=== PATIENT | male | born 1965 | race Caucasian/White ===

== ENCOUNTER 2018-06-04 12:56 | Inpatient (IN) | payer OTHER, SELFPAY ==
[2018-06-04] VITALS (8 sets, daily range): BP systolic 125–145; BP diastolic 75–89; PULSE 76–84; RESP 16–20; TEMP 36.3–36.8; O2SAT 96–97; BMI 25.4; BMI 26.7
--- NOTE | 2018-06-04 13:08 | CT_ITS ---
STUDY: CTA CHEST REASON FOR EXAM: Male, 52 years old. Hemoptysis, cough RADIATION DOSAGE (If Supplied By Facility): CTDIvol = ( 15.98 ) mGy, DLP = ( 713.45 ) mGycm TECHNIQUE: The examination was performed with the intravenous administration of 100ML ml of Isovue 370 contrast material. Post-processing of the angiographic images was performed, with multiplanar reformation and 3D reconstruction. Individualized dose optimization techniques were used for this CT. COMPARISON: None. FINDINGS: Normal enhancement of the main pulmonary artery and right and left pulmonary arteries. There are filling defects of the bilateral peripheral pulmonary arteries. There is no demonstrated pulmonary embolism. Normal thoracic aorta and visualized great vessels. There is no demonstrated aortic dissection. Normal heart and pericardium. Normal mediastinum. Normal hilar regions. Normal visualized trachea and bronchi. The lungs are well expanded. Left lower lobe infiltrate. Mild left pleural effusion with basilar atelectasis. Normal chest wall structures. Normal osseous structures. Hypoattenuated peripheral 1 cm right hepatic nodule. CT/CTA Chest W/WO Contrast IMPRESSION: Bilateral pulmonary embolism. No arterial dissection. Left lower lobe infiltrate. Left pleural effusion with basilar atelectasis. Peripheral hypoattenuated hepatic nodule. N.B. : The above information has been verbally conveyed by Paxton Chris DO to Dr. Silverio Helton, Referring Physician, on 06/04/2018 14:56:21 (ET). Electronically Signed: Paxton Chris DO at 14:52 EDT Tel [phone], Service support , N.B. : The above information has been verbally conveyed by Paxton Chris DO to Dr. Silverio Helton, Referring Physician, on 06/04/2018 14:56:21 (ET).
--- NOTE | 2018-06-04 13:08 | EKG12_ITS ---
Test Reason : SOB Blood Pressure : / mmHG Vent. Rate : 085 BPM Atrial Rate : 085 BPM P-R Int : 148 ms QRS Dur : 112 ms QT Int : 374 ms P-R-T Axes : 041 032 042 degrees QTc Int : 445 ms Normal sinus rhythm Normal ECG Confirmed by HANK MATOS, LATANYA ([id number]), industrial editor ROSE VIEYRA ([id number]) on 06/09/2018 3:41:47 PM Referred By: YOLANDA Confirmed By:LATANYA MCKINNEY MD
[2018-06-04 13:37] LABS: Absolute Lymphocyte Count 1.61 X10^3/ul (0.83-4.51); Absolute Neutrophil Count 5.6 X10^3/uL (2.0-7.7); Basophil# 0.02 X10^3/uL; Basophil% 0.2 % (0-1); Eosinophil# 0.15 X10^3/uL; Eosinophils% 1.8 % (0-5); Hematocrit 41.3 % (40-54); Lymphocyte # 1.61 X10^3/ul (4.0); Lymphocyte % 19.1 % (19-41); Mean Corp Hgb Conc 33.9 g/gl (32-36); Mean Corpuscular Volume 91.4 fL (80-94); Mean Platelet Vol. 9.7 fl (6.2-12.0); Monocyte# 1.04 X10^3/uL; Monocyte% 12.3 % (0-10); Neutrophil % 66.4 % (47-70); Platelet Count 220 K/mm3 (150-450); RBC Distribution Width CV 12.1 % (11.6-14.6); RBC Distribution Width SD 40.4 fl (35.1-43.9); Red Blood Count 4.52 M/mm3 (4.6-6.2); White Blood Count 8.4 K/mm3 (4.4-11.0)
[2018-06-04 13:38] LABS: POSITIVE COUNT NO; POSITIVE DIFFERENTIAL NO; POSITIVE MORPHOLOGY NO
[2018-06-04 13:51] LABS: Anion Gap 8 (5-15); BUN 14 mg/dL (7-18); BUN/Creat Ratio 11.9 RATIO (10-20); Calcium,Total 8.5 mg/dL (8.5-10.1); Chloride 105 mmol/L (98-107); Creatinine, Serum 1.18 mg/dL (0.70-1.30); EST Glomerular Filtration Rate 69 mL/min (>60); Est Glom Filt Rate - Afr Amer 83 mL/min (>60); Estimated Creatinine Clearance 91.24 ml/min; Glucose 101 mg/dL (74-106); Sodium Level 140 mmol/L (136-145)
[2018-06-04] MEDS: Heparin Injection (Vial) 5,000 UNIT/ML VIAL 4000 UNIT IV (15:13)
--- NOTE | 2018-06-04 15:36 | ED.DCSUM_ITS ---
- ER Visit Summary Date of Service: 06/04/18 Chief Complaint: Chest pain and hemoptysis History of Present Illness: The patient is a 52 M presenting for evaluation secondary chest pain or hemoptysis. Patient states that over the course of the last 3-4 days he has been having left posterior chest discomfort is worse with breathing. He states that he went to a chiropractor did not seem to alleviate this. Patient reports that today he has started to have episodes of hemoptysis. This is causing him to feel somewhat short of breath. Patient denies any prior similar episodes in the past, does have a history of DVT 2 years ago that was provoked by surgery, and also has a recent history of traveling to and from [place] on an airplane. Review of systems otherwise negative. Physical Examination: Vital signs are within normal limits, patient is afebrile. General: Patient is well-nourished well-developed and in no acute distress. Head: Normocephalic, atraumatic Eyes: Pupils equal round and reactive bilaterally, extra occular motion intact bialterally ENT: Moist mucous membranes Neck: Supple, no lymphadenopathy, no JVD, no meningismus CVS: Heart regular rate and rhythm, no murmurs, rubs or gallops, radial pulses 2 + bilaterally Resp: Respirations nondistressed, lung sounds clear bilaterally Abdomen: Soft, nontender, nondistended, no palpable masses, normal bowel sounds Back: Nontender Extremities: Nontender, atraumatic, active full range of motion, no peripheral edema Skin: warm, no rashes, no petechia Neuro: Alert and oriented x 4, CN 2-12 intact, no lateralizing neurological defecits Psyc: Normal affect Test Results: EKG shows sinus rhythm of [address] segments normal T waves. CBC chemistry troponin unremarkable. CT angiogram of the chest shows bilateral PEs with infiltrate in the left lower lobe Emergency Department Course and Treatment: Patient presented secondary to chest pain and hemoptysis. He has every risk factor in the book for having a PE, so CT angiogram was performed and showed evidence of PE. Given the patient's hemoptysis I do believe that he requires observation while he started on anticoagulation as he does run the risk of having massive hemoptysis. He was started on a heparin bolus and drip and will be admitted to PCU. Disposition: Admission Impression: 1. Bilateral pulmonary emboli This note was generated with [employer] dictation software. It may contain incorrect words, spelling, and punctuation that were not noted in review of the chart prior to signing ED Disposition - Plan for ED Patient: Chief Complaint: Shortness of Breath Referrals: Nathan Cortes MD [Primary Care Provider] -
--- NOTE | 2018-06-04 15:51 | PCM.HP.STD ---
Problem List (1) Hemoptysis Status: Acute (2) Back pain Status: Acute Qualifiers: Back pain location: thoracic back pain Chronicity: acute Back pain laterality: left Qualified Code(s): M54.6 - Pain in thoracic spine History of Present Illness Date of Admission: 06/04/18 The patient is a 52 year old M with a significant history of a previous DVT in his left leg after meniscal surgery in the same leg; who presents to the ED because of hemoptysis this morning. Patient returned from [place] about 10 days ago and noted that 3 days prior to his admission he had excruciating pain at the left side of his chest. At about the same time he had diffused body pain and chills which has since disappeared. Also this morning patient noted excruciating pain on the left side of his back proximal to his scapula. His back pain is aggravated with taking a breath. Because of the symptoms above the patient proceeded to the ED where a CT scan showed a bilateral PE [] Past Medical History Allergies No Known Allergies Allergy (Verified 06/04/18 13:01) Home Medications: Ambulatory Orders Medication Instructions Recorded NK [NK] 06/04/18 Surgical History: - - Rotator cough repair; left meniscus removal. Smoking Status: Current some day smoker Tobacco Use: Cigars Alcohol: Occasional - *Family History Paternal History Items: Cancer - Prostate Sibling History Items: Cancer, Hypertension Review of Systems HEENT: Denies: Head Aches, Sinus Congestion, Sinus Drainage Gastrointestinal: Denies: Abdominal Pain, Nausea, Vomiting Genitourinary: Denies: Dysuria Musculoskeletal: Reports: - Skin: Denies: Rash, Wounds Neurological: Denies: Numbness, Tingling, Focal weakness Psychiatric: Denies: Anxiety, Depression, Homicidal Ideations, Suicidal Ideations Hematologic/ Lymphatic: Denies: Easy Bruising, Easy Bleeding VTE Information - Inpt Only VTE Present on Admission: Yes VTE Mechan Device Prophylaxis: None VTE Pharm Prophylaxis ordered?: No Reason prophylaxis not ordered:: Treatment Not Indicated - On treatment for PE Patient Problems: Active and Suspected Problems Hemoptysis (Acute) Back pain (Acute) Chest pain (Acute) - Physical Exam General: Alert HEENT: Atraumatic Oral: Moist Mucosa Neck: Supple, No JVD, Negative Carotid Bruits Lungs: Clear to auscultation, Normal air movement Cardiovascular: Regular rate, No murmurs Abdomen: Bowel Sounds Present, Soft, Non Tender Extremities: No edema, Capillary Refill Less than 3 Seconds Musculoskeletal: No Tenderness to Palpation of Joints or Extremities Psych/Mental Status: Normal Affect, Appropriate Vital Signs Temp Pulse Resp BP Pulse Ox 97.3 F L 78 20 H 125/85 H 97 06/04/18 12:58 06/04/18 15:00 06/04/18 15:00 06/04/18 15:00 06/04/18 15:00 Assessment/Plan All Active Problems Hemoptysis (Acute) Back pain (Acute) Chest pain (Acute) 1. Acute Bilateral PE His chest pain and back pain is likely due to the bilateral PE confirmed by radiography. The patient was started on heparin bolus and infusion protocol. Oral anticoagulation was not started because of hemoptysis which may be difficult to resolve with oral anticoagulation. He is hemodynamically stable and chest CT did not show any right ventricular strain. We will not do echocardiogram at this time. We will order bilateral Doppler to investigate whether he had DVT leading to his PE. Morphine and oxycodone as needed for pain. 2. Left lower infiltrates Likely sequela of PE. Incentive spirometer. 3. Left pleural effusion Likely sequela of PE will treat PE as above. 4.DVT prophylaxis Not a candidate since he is already being treated for PE. Code Visit Inpatient E&M: 86476 Subs Hosp L2
--- NOTE | 2018-06-04 16:18 | VDLE_ITS ---
Reason For Study: PE RIGHT LEFT GSV is normal. GSV is normal. CFV is compressible, spontaneous, phasic, CFV is compressible, spontaneous, phasic, competent and demonstrates normal competent, and demonstrates normal augmentation. augmentation. FV is compressible, spontaneous, phasic, FV is compressible, spontaneous, phasic, competent and demonstrates normal competent and demonstrates normal augmentation. augmentation. POP V is compressible, spontaneous, phasic, Acute deep vein thrombosis is noted in the competent and demonstrates normal left popliteal vein. augmentation. PTV is compressible. T/P Trunk is compressible. Acute deep vein thrombosis is noted in the PTV is compressible. left peroneal vein. RT PerV is compressible. Acute deep vein thrombosis noted in T/P Procedure trunk. Exam performed portable in patient room. A preliminary report was called and/or faxed to Pt nurse Sunita. Interpretation Summary Acute deep vein thrombosis is noted in the left popliteal vein. Acute deep vein thrombosis is noted in the left tibio-peroneal trunk. Acute deep vein thrombosis is noted in the left peroneal vein. The remainder of the left lower extremity deep venous system is patent and compressible. The left common femoral vein and femoral vein are competent. Deep veins of the right lower extremity are patent and compressible segmentally. There is no evidence of right lower extremity deep vein thrombosis. Valvular competence appears intact within the proximal deep venous system on the right . The greater saphenous veins appear bilaterally patent and compressible segmentally. Ordering Physician: Filiberto Bazan Referring Physician: Jam Cortes MD Performed By: Victorina Clark RVT
[2018-06-04 17:26] LABS: International Normalized Ratio 1.1; Prothrombin Time (Protime)PT. 14.6 SECONDS (11.7-14.9)
[2018-06-04 17:28] LABS: Partial Thromboplast Time 85.9 Seconds (24.1-36.2)
[2018-06-04] MEDS: oxyCODONE 5 MG Tablet PO ×2 (19:09→21:04)
[2018-06-04] MEDS: Morphine 2 MG/ML Syringe IV (20:29)
[2018-06-04] MEDS: Docusate Sodium 100 MG Capsule PO (21:04)
[2018-06-04] MEDS: Acetaminophen 500 MG Tablet 1000 MG PO (23:29)
[2018-06-04] MEDS: Zolpidem Tartrate 5 MG Tablet PO (23:30)
[2018-06-05] VITALS (12 sets, daily range): BP systolic 111–138; BP diastolic 77–82; PULSE 64–77; RESP 16–18; TEMP 36.4–36.7; O2SAT 93–100
[2018-06-05 00:52] LABS: Partial Thromboplast Time 48.2 Seconds (24.1-36.2)
[2018-06-05] MEDS: oxyCODONE 5 MG Tablet 10 MG PO ×2 (02:59→09:00)
[2018-06-05 07:57] LABS: Hematocrit 37.7 % (40-54); Hemoglobin 13.1 g/dl (13.0-16.5); Mean Corp Hgb Conc 34.7 g/gl (32-36); Mean Corpuscular Hgb 32.1 pg (27.0-32.0); Mean Corpuscular Volume 92.4 fL (80-94); Mean Platelet Vol. 9.9 fl (6.2-12.0); Platelet Count 231 K/mm3 (150-450); RBC Distribution Width CV 11.6 % (11.6-14.6); RBC Distribution Width SD 39.1 fl (35.1-43.9); Red Blood Count 4.08 M/mm3 (4.6-6.2); Scan Indicated on CBC? Y/N NO; White Blood Count 8.3 K/mm3 (4.4-11.0)
[2018-06-05 08:23] LABS: Anion Gap 8 (5-15); BUN 16 mg/dL (7-18); BUN/Creat Ratio 16.6 RATIO (10-20); Calcium,Total 8.6 mg/dL (8.5-10.1); Chloride 103 mmol/L (98-107); Creatinine, Serum 0.96 mg/dL (0.70-1.30); EST Glomerular Filtration Rate 86 mL/min (>60); Est Glom Filt Rate - Afr Amer 105 mL/min (>60); Estimated Creatinine Clearance 112.15 ml/min; Glucose 149 mg/dL (74-106); Potassium 4.6 mmol/L (3.5-5.1); Sodium Level 138 mmol/L (136-145)
[2018-06-05 08:29] LABS: Partial Thromboplast Time 44.5 Seconds (24.1-36.2)
[2018-06-05] MEDS: Acetaminophen 500 MG Tablet 1000 MG PO ×2 (09:01→18:04)
[2018-06-05] MEDS: Docusate Sodium 100 MG Capsule PO ×2 (09:01→22:02)
--- NOTE | 2018-06-05 09:53 | ECHOD_ITS ---
Version 2 Reason For Study: EMBOLI Procedure This was a 2D Doppler, Color Flow transthoracic echocardiogram. Exam performed portable in patient room. Left Ventricle Normal size and thickness. The estimated ejection fraction is 65-70 %. Stage 1 diastolic dysfunction. No regional wall motion abnormalities noted. Right Ventricle Normal RV size. Probable apical RV strain patter, possibly consistent acute pulmonary embolism. Atria The left atrium is mildly enlarged. Normal right atrium. Normal atrial septum. Bubble contrast study negative for right to left interatrial shunt. Mitral Valve The mitral valve is structurally normal. No prolapse or stenosis seen. Trivial mitral valve insufficiency. Tricuspid Valve Normal tricuspid valve. Trivial tricuspid valve insufficiency. Right ventricular systolic pressure estimated to be 31 mmHg. Aortic Valve Trisinus/trileaflet aortic valve. Normal aortic valve. Pulmonic Valve Normal pulmonic valve. Great Vessels Normal aortic root. Normal arch. Normal inferior vena cava. Inferior vena cava collapse with sniff. Pericardium/Pleural No pericardial effusion. Medication Used existing IV in left antecubital space. Performed a rapid injection of agitated mix of 9 cc saline and 1cc air to assess for atrial septal defect. MMode/2D Measurements & Calculations LVIDd: 4.9 cm IVSd: 0.97 cm Ao root diam: 3.4 cm LVIDs: 3.0 cm LVPWd: 0.95 cm LA dimension: 3.5 cm RVDd: 3.2 cm FS: 39.0 % LAV(MOD-bp): 73.1 ml LA A4 area: 22.3 cm2 RA A4 area: 16.6 cm2 LAV(MOD-bp) Indexed: 31.1 ml/m2 LAV(MOD-sp2): 74.9 ml LAV(MOD-sp4): 72.5 ml Doppler Measurements & Calculations MV E max wilber: 98.7 cm/sec Lat Peak E' Wilber: 12.5 cm/sec Med Peak E' Wilber: 12.0 cm/sec MV A max wilber: 82.4 cm/sec E/E' lat: 7.9 E/E' med: 8.2 MV E/A: 1.2 Ao V2 max: 176.1 cm/sec LV V1 max: 148.5 cm/sec PA V2 max: 138.7 cm/sec Ao max P.4 mmHg LV V1 max P.8 mmHg TR max wilber: 254.1 cm/sec TR max P.8 mmHg Interpretation Summary The estimated ejection fraction is 65-70 %. Probable apical RV strain patter, possibly consistent acute pulmonary embolism. The left atrium is mildly enlarged. Stage 1 diastolic dysfunction. Right ventricular systolic pressure estimated to be 31 mmHg. Bubble contrast study negative for right to left interatrial shunt. There is no comparison study available. Ordering Physician: Mary Ellen Sanz Referring Physician: Jam Cortes MD Performed By: Jordyn Oliveros RDCS, RVT
--- NOTE | 2018-06-05 10:08 | PCM.PN.HOSP ---
Patient Problems: Active and Suspected Problems Hemoptysis (Acute) Back pain (Acute) Chest pain (Acute) Subjective: Patient was seen and examined. Admitted yesterday with bilateral PE. Admits to having traveled in an airplane from [place]. History of DVT 4 years ago after a left meniscal tear repair. He was on Xarelto for a while. No history of malignancy. Complains of light headedness after using the bathroom. He felt like he was going to pass out. Denies any dizziness or palpitations or chest pain or leg swelling. Vitals are stable Vitals/I&O's: Vital Signs Temp Pulse Resp BP Pulse Ox 97.8 F 68 16 118/77 98 06/05/18 03:00 06/05/18 03:00 06/05/18 03:00 06/05/18 03:00 06/05/18 07:20 Oxygen Flow Rate (L/min) 2 Oxygen Delivery Method Room Air Weight: 102.3 kg Body Mass Index (BMI) 26.7 Intake and Output for Last 24 Hours 06/03/18 06/04/18 06/05/18 23:59 23:59 23:59 Intake Total 240 / 240 280 / 280 Output Total 150 / 150 Balance 240 / 240 130 / 130 General: Alert, Oriented x3, Cooperative, No apparent distress, - - appeared slightly flushed HEENT: Atraumatic, PERRLA, EOMI, Normocephalic Oral: Moist Mucosa Neck: Supple, No JVD, Negative Carotid Bruits Lungs: Clear to auscultation, Normal air movement Cardiovascular: Regular rate, Regular Rhythm, Normal S1, Normal S2, No murmurs Abdomen: Bowel Sounds Present, Soft, Non Tender, Non-Distended, No Hepato-splenomegaly Extremities: No edema Skin: No rashes, No breakdown Musculoskeletal: No Tenderness to Palpation of Joints or Extremities Lymphatic: No Cervical, Supraclavicular, or Inguinal Adenopathy Neurological: Cranial nerves II-XII grossly intact, Neuro grossly intact Psych/Mental Status: Normal Affect, Appropriate Laboratory Results 06/04/18 16:55: PT 14.6, INR 1.1, APTT 85.9 H 06/05/18 00:25: APTT 48.2 H 06/05/18 07:30: WBC 8.3, RBC 4.08 L, Hgb 13.1, Hct 37.7 L, MCV 92.4, MCH 32.1 H, MCHC 34.7, RDW 11.6, RDW Differential 39.1, Plt Count 231, MPV 9.9 06/05/18 07:30: Sodium 138, Potassium 4.6, Chloride 103, Carbon Dioxide 27.0, Anion Gap 8, BUN 16, Creatinine 0.96, Estim Creat Clear Calc 112.15, Est GFR (MDRD) Af Amer 105, Est GFR (MDRD) Non-Af 86, BUN/Creatinine Ratio 16.6, Glucose 149 H, Calcium 8.6 06/05/18 07:30: APTT 44.5 H Current Medications Acetaminophen (Tylenol) 1,000 mg PO Q8H PRN PRN PRN Reason: PAIN Last Admin: 06/05/18 09:01 Dose: 1,000 mg Docusate Sodium (Colace) 100 mg PO BID [facility] Last Admin: 06/05/18 09:01 Dose: 100 mg Ceftriaxone Sodium (Rocephin) 1 gm in 50 mls @ 100 mls/hr IV Q24 [facility] Azithromycin 500 mg/ Dextrose 255 mls @ 250 mls/hr IV Q24 [facility] Magnesium Hydroxide (Milk Of Magnesia) 30 ml PO DAILY PRN PRN Reason: Constipation Morphine Sulfate () 1 mg IV Q4H PRN PRN PRN Reason: Moderate Pain (pain scale 4-5) Ondansetron HCl (Zofran) 4 mg IV Q6H PRN PRN PRN Reason: NAUSEA Oxycodone HCl (Oxyir) 10 mg PO Q4H PRN PRN PRN Reason: SEVERE PAIN (6-10/10) Last Admin: 06/05/18 09:00 Dose: 5 mg [facility] Stop: 06/26/18 10:08 Sodium Chloride () 5 - 30 ml IV UD PRN PRN Reason: SALINE FLUSH Zolpidem Tartrate (Ambien (Generic)) 5 mg PO QHS PRN PRN PRN Reason: INSOMNIA Last Admin: 06/04/18 23:30 Dose: 5 mg Medical Necessity - Tobacco Use Smoking Status: Current some day smoker Tobacco Use: Cigars Assessment/Plan All Active Problems Hemoptysis (Acute) Back pain (Acute) Chest pain (Acute) 52-year-old male with no significant past medical history except for previous DVT in his left leg after meniscal surgery, was on Xarelto, not on now. Patient admits to having traveled by airplane to [place]. He returned 10 days ago. He comes in with left-sided chest pain, fever and chills. Nose with bilateral pulmonary embolism and left lower lobe infiltrate with pleural effusion and atelectasis 1. Acute bilateral PE, appears to be provoked, and recently on a long flight, although suspect that this is a second time is having a VTE in this may be unprovoked, on heparin drip, and had Xarelto before. Vitals appears stable, not on oxygen, will start on Xarelto, DC heparin drip, 2D echo in the light of patient's recent symptoms of lightheadedness. Encourage use of incentive spirometer. 2. Left lower lobe infiltrate with pleural effusion, confirmed with radiologist, present on admission, no fever, chills or leucocytosis seen, secondary to community acquired pneumonia, will start on ceftriaxone and azithromycin. 3. DVT PPx- on anticoagulation for PE 4. Disposition: Possible DC in 24-48hrs Code Visit Inpatient E&M: 96682 Subs Hosp L3
--- NOTE | 2018-06-05 10:21 | PN_ITS ---
Patient Problems: Active and Suspected Problems Hemoptysis (Acute) Back pain (Acute) Chest pain (Acute) Subjective: Patient was seen and examined. Admitted yesterday with bilateral PE. Admits to having traveled in an airplane from [place]. History of DVT 4 years ago after a left meniscal tear repair. He was on Xarelto for a while. No history of malignancy. Complains of light headedness after using the bathroom. He felt like he was going to pass out. Denies any dizziness or palpitations or chest pain or leg swelling. Vitals are stable Vitals/I&O's: Vital Signs Temp Pulse Resp BP Pulse Ox 97.8 F 68 16 118/77 98 06/05/18 03:00 06/05/18 03:00 06/05/18 03:00 06/05/18 03:00 06/05/18 07:20 Oxygen Flow Rate (L/min) 2 Oxygen Delivery Method Room Air Weight: 102.3 kg Body Mass Index (BMI) 26.7 Intake and Output for Last 24 Hours 06/03/18 06/04/18 06/05/18 23:59 23:59 23:59 Intake Total 240 / 240 280 / 280 Output Total 150 / 150 Balance 240 / 240 130 / 130 General: Alert, Oriented x3, Cooperative, No apparent distress, - - appeared slightly flushed HEENT: Atraumatic, PERRLA, EOMI, Normocephalic Oral: Moist Mucosa Neck: Supple, No JVD, Negative Carotid Bruits Lungs: Clear to auscultation, Normal air movement Cardiovascular: Regular rate, Regular Rhythm, Normal S1, Normal S2, No murmurs Abdomen: Bowel Sounds Present, Soft, Non Tender, Non-Distended, No Hepato- splenomegaly Extremities: No edema Skin: No rashes, No breakdown Musculoskeletal: No Tenderness to Palpation of Joints or Extremities Lymphatic: No Cervical, Supraclavicular, or Inguinal Adenopathy Neurological: Cranial nerves II-XII grossly intact, Neuro grossly intact Psych/Mental Status: Normal Affect, Appropriate Laboratory Results 06/04/18 16:55: PT 14.6, INR 1.1, APTT 85.9 H 06/05/18 00:25: APTT 48.2 H 06/05/18 07:30: WBC 8.3, RBC 4.08 L, Hgb 13.1, Hct 37.7 L, MCV 92.4, MCH 32.1 H , MCHC 34.7, RDW 11.6, RDW Differential 39.1, Plt Count 231, MPV 9.9 06/05/18 07:30: Sodium 138, Potassium 4.6, Chloride 103, Carbon Dioxide 27.0, Anion Gap 8, BUN 16, Creatinine 0.96, Estim Creat Clear Calc 112.15, Est GFR ( MDRD) Af Amer 105, Est GFR (MDRD) Non-Af 86, BUN/Creatinine Ratio 16.6, Glucose 149 H, Calcium 8.6 06/05/18 07:30: APTT 44.5 H Current Medications Acetaminophen (Tylenol) 1,000 mg PO Q8H PRN PRN PRN Reason: PAIN Last Admin: 06/05/18 09:01 Dose: 1,000 mg Docusate Sodium (Colace) 100 mg PO BID [facility] Last Admin: 06/05/18 09:01 Dose: 100 mg Ceftriaxone Sodium (Rocephin) 1 gm in 50 mls @ 100 mls/hr IV Q24 [facility] Azithromycin 500 mg/ Dextrose 255 mls @ 250 mls/hr IV Q24 [facility] Magnesium Hydroxide (Milk Of Magnesia) 30 ml PO DAILY PRN PRN Reason: Constipation Morphine Sulfate () 1 mg IV Q4H PRN PRN PRN Reason: Moderate Pain (pain scale 4-5) Ondansetron HCl (Zofran) 4 mg IV Q6H PRN PRN PRN Reason: NAUSEA Oxycodone HCl (Oxyir) 10 mg PO Q4H PRN PRN PRN Reason: SEVERE PAIN (6-10/10) Last Admin: 06/05/18 09:00 Dose: 5 mg [facility] Stop: 06/26/18 10:08 Sodium Chloride () 5 - 30 ml IV UD PRN PRN Reason: SALINE FLUSH Zolpidem Tartrate (Ambien (Generic)) 5 mg PO QHS PRN PRN PRN Reason: INSOMNIA Last Admin: 06/04/18 23:30 Dose: 5 mg Medical Necessity - Tobacco Use Smoking Status: Current some day smoker Tobacco Use: Cigars Assessment/Plan All Active Problems Hemoptysis (Acute) Back pain (Acute) Chest pain (Acute) 52-year-old male with no significant past medical history except for previous DVT in his left leg after meniscal surgery, was on Xarelto, not on now. Patient admits to having traveled by airplane to [place]. He returned 10 days ago. He comes in with left-sided chest pain, fever and chills. Nose with bilateral pulmonary embolism and left lower lobe infiltrate with pleural effusion and atelectasis 1. Acute bilateral PE, appears to be provoked, and recently on a long flight, although suspect that this is a second time is having a VTE in this may be unprovoked, on heparin drip, and had Xarelto before. Vitals appears stable, not on oxygen, will start on Xarelto, DC heparin drip, 2D echo in the light of patient's recent symptoms of lightheadedness. Encourage use of incentive spirometer. 2. Left lower lobe infiltrate with pleural effusion, confirmed with radiologist , present on admission, no fever, chills or leucocytosis seen, secondary to community acquired pneumonia, will start on ceftriaxone and azithromycin. 3. DVT PPx- on anticoagulation for PE 4. Disposition: Possible DC in 24-48hrs Code Visit Inpatient E&M: 49275 Subs Hosp L3
[2018-06-05] MEDS: 0.9% NaCl Peripheral Flush Adult/Peds IV ×3 (12:08→22:02)
[2018-06-05] MEDS: Ondansetron 4 MG/2 ML Vial IV (12:08)
[2018-06-05] MEDS: Rivaroxaban 15 MG Tablet PO ×2 (12:16→18:04)
--- NOTE | 2018-06-05 14:34 | CASEMGMT ---
Face to Face with patient for initial transition planning/care coordination assessment. BRE RICH introduced self and role at [facility], pt voices understanding and consents to assessment at this time. Pt is sitting up in bed in no distress at this time. Pt is A/O x4 at this time and answers all questions appropriately at this time. Care providers, pharmacy, and demographics verified. See attached link. Pt voices no further concerns/needs at this time. Advised pt to ask for CM if any further questions/concerns/needs arise, voices understanding. PLAN[place]
--- NOTE | 2018-06-05 14:38 | CASEMGMT ---
Per Dr. Sanz, pt to be sent home on Xarelto 15mg twice daily for 21 days and then 20mg daily from then on. Script was e-scribed to [facility] retail pharmacy and per Scott, it is a preferred med but the co-pay will be $118 for the initial script but they did already apply a 30 day free coupon. Pt updated on all at this time and voices understanding. Dara DÍAZ CM
[2018-06-05] MEDS: Ceftriaxone 1 GM/50 ML BAG IV (17:07)
[2018-06-06 02:00] VITALS: BP 141/74; PULSE 69; RESP 18; TEMP 36.6; O2SAT 98
[2018-06-06] MEDS: Acetaminophen 500 MG Tablet 1000 MG PO (02:20)
[2018-06-06 03:00] VITALS: PULSE 65
[2018-06-06] MEDS: Rivaroxaban 15 MG Tablet PO (06:45)
[2018-06-06 06:58] VITALS: PULSE 59
[2018-06-06 07:46] VITALS: O2SAT 97
[2018-06-06 08:21] VITALS: BP 120/82; PULSE 67; RESP 18; TEMP 36.7; O2SAT 98
--- NOTE | 2018-06-06 10:31 | DCINST_ITS ---
- Discharge Diagnoses Current Active Problems: Current Active and Chronic Problems Hemoptysis (Acute) Back pain (Acute) Chest pain (Acute) You will use the following diet at home:: Regular Discharge Activity: Return to Normal Activity Call your doctor if you observe: Fever of 101 or Higher, Shortness of breath, Chest pain, - - Coughing blood Allergies/Adverse Reactions: Allergies No Known Allergies Allergy (Verified 06/04/18 13:01) Medications to take at Discharge Rivaroxaban [Xarelto] 15 mg PO BIDCM 21 Days #42 tab 06/05/18 levoFLOXacin tablet [Levaquin tablet] 750 mg PO DAILY #4 tab 06/06/18 The following prescriptions were given: levoFLOXacin tablet [Levaquin tablet] 750 mg PO DAILY #4 tab Rivaroxaban [Xarelto] 15 mg PO BIDCM 21 Days #42 tab Primary Care Physician: Nathan Cortes MD [Primary Care Provider] - Please follow up with your Primary Care Physician in: 5-7 days Test Results: Test results from this visit will be discussed in further detail at your follow- up appointment, if applicable.
--- NOTE | 2018-06-06 10:32 | DS.PCM_ITS ---
Discharge Date and Diagnosis - Problem List Patient Problems: Active and Suspected Problems Hemoptysis (Acute) Back pain (Acute) Chest pain (Acute) Date of Admission: 06/04/18 Date of Discharge: 06/06/18 - Primary Discharge Diagnosis Active and Suspected Problems Hemoptysis (Acute) Back pain (Acute) Chest pain (Acute) Bilateral PE Committee acquired pneumonia with pleural effusion. Hospital Course and Treatment Imaging Results: Impressions Chest CTA 06/04/18 13:08 IMPRESSION: Bilateral pulmonary embolism. No arterial dissection. Left lower lobe infiltrate. Left pleural effusion with basilar atelectasis. Peripheral hypoattenuated hepatic nodule. N.B. : The above information has been verbally conveyed by Paxton Chris DO to Dr. Silverio Helton, Referring Physician, on 06/04/2018 14:56:21 (ET). Electronically Signed: Paxton Chris DO at 14:52 EDT Tel [phone], Service support , N.B. : The above information has been verbally conveyed by Paxton Chris DO to Dr. Silverio Helton, Referring Physician, on 06/04/2018 14:56:21 (ET). 06/05/18 14:50 Urine, Clean Catch Streptococcus pneumoniae Antigen (M - Final 06/05/18 14:50 Urine, Clean Catch Legionella Antigen - Final None Operations: None Procedures: None Summary of Care Provided: The patient is a 52 year old M with a significant history of previous provoked DVT of his left leg after meniscus surgery in the left leg who came to the emergency department because of hemoptysis after a return flight from [place] and was found to have acute bilateral PE with left lower lobe infiltrates and pleural effusion On CTPE. Echocardiogram was unremarkable. The patient was started on heparin infusion protocol at the ED which was initially continued inpatient. Patient was later switched to Xarelto. Patient was started on IV antibiotics for community-acquired pneumonia. While inpatient patient's did not have any more hemoptysis. Patient had a pain in his left scapula which was managed inpatient with p.o. narcotics. Patient noted a considerable improvement in his pain. With clinical improvement in his symptoms a shared decision was made to discharge patient home on Levaquin p.o. and Xarelto. His first pack of Xarelto will be delivered from our pharmacy before patient goes home. Likewise his Levaquin will be delivered to him before he goes home. Patient was instructed to return to the ED if he has uncontrolled pain, fever, chills or anything out of the ordinary. Patient was instructed to follow up with PCP. And to discuss with PCP about a possible follow-up with hematology since this is his second DVT. On the day of discharge a comprehensive physical examination was done. Heart sounds S1, S2 present with no murmur, gallop or rubs. His lungs were clear to auscultation. His belly was nontender and nondistended and bowel sounds were present. He had no edema or cyanosis in his extremity. And is his pulses were normal bilaterally. [] Discharge Activity: Return to Normal Activity Call your doctor if you observe: Fever of 101 or Higher, Shortness of breath, Chest pain, - - Coughing blood Home Medications: Medications to take at Discharge Rivaroxaban [Xarelto] 15 mg PO BIDCM 21 Days #42 tab 06/05/18 levoFLOXacin tablet [Levaquin tablet] 750 mg PO DAILY #4 tab 06/06/18 Following Prescrptions Were Given to Patient: levoFLOXacin tablet [Levaquin tablet] 750 mg PO DAILY #4 tab Rivaroxaban [Xarelto] 15 mg PO BIDCM 21 Days #42 tab Primary Care Physician: Nathan Cortes MD [Primary Care Provider] - Please follow up with your Primary Care Physician in: 5-7 days Additional Instructions: Take tylenol for pain Disposition: Home Minutes spent on discharge:: 25 Patient Condition:: Good Medical Necessity - Tobacco Use Smoking Status: Current some day smoker Tobacco Use: Cigars Meaningful Use Info Meaningful Use Diagnoses (Choose all that apply): VTE - VTE Anticoag overlap given w/in hospital stay or rx'd at dc?: Yes Pt receive overlap for 5 days?: No Reason overlap not ordered, prescribed, or given for 5 days: Treatment Not Indicated Code Visit Inpatient E&M: 54522 Disch Hosp
[2018-06-06 11:13] VITALS: PULSE 73
== END 2018-06-06 12:55 | disposition home or self-care (01) | DRG 175 ==
LOC: ED 13:41 → PCU 15:37
PROVIDERS: Admitting Provider Hospitalist; Emergency Provider Emergency Medicine; Family Provider Family Medicine; PCP Family Medicine; Visit Provider Hospitalist
DX: I26.99 Other pulmonary embolism without acute cor pulmonale (principal); J18.9 Pneumonia, unspecified organism; J91.8 Pleural effusion in other conditions classified elsewhere; R04.2 Hemoptysis; F17.290 Nicotine dependence, other tobacco product, uncomplicated; Z86.718 Personal history of other venous thrombosis and embolism
CPT/HCPCS: 36415; 71275; 80048; 84484; 85025; 85027; 85610; 85730; 87449; 93005; 93306; 93970; 99281; J7040; Q9967; A4216; J2405

== ENCOUNTER → 2018-06-17 10:53 | Outpatient (CLI) | payer OTHER, SELFPAY ==
[2018-06-17 11:49] LABS: Absolute Lymphocyte Count 2.14 X10^3/ul (0.83-4.51); Absolute Neutrophil Count 3.5 X10^3/uL (2.0-7.7); Basophil# 0.05 X10^3/uL; Basophil% 0.8 % (0-1); Eosinophil# 0.13 X10^3/uL; Eosinophils% 2.1 % (0-5); Hematocrit 40.6 % (40-54); Hemoglobin 13.6 g/dl (13.0-16.5); Lymphocyte # 2.14 X10^3/ul (4.0); Mean Corp Hgb Conc 33.5 g/gl (32-36); Mean Corpuscular Hgb 30.8 pg (27.0-32.0); Mean Corpuscular Volume 91.9 fL (80-94); Mean Platelet Vol. 9.6 fl (6.2-12.0); Monocyte# 0.47 X10^3/uL; Monocyte% 7.5 % (0-10); Neutrophil # 3.48 X10^3/uL (2.7-7.7); Neutrophil % 55.1 % (47-70); POSITIVE COUNT NO; POSITIVE DIFFERENTIAL NO; POSITIVE MORPHOLOGY NO; Platelet Count 293 K/mm3 (150-450); RBC Distribution Width CV 11.9 % (11.6-14.6); RBC Distribution Width SD 40.2 fl (35.1-43.9); Red Blood Count 4.42 M/mm3 (4.6-6.2); White Blood Count 6.3 K/mm3 (4.4-11.0)
[2018-06-17 11:54] LABS: International Normalized Ratio 1.4; Prothrombin Time (Protime)PT. 16.7 SECONDS (11.7-14.9)
[2018-06-21 20:05] LABS: Dilute Russell Viper Venom 124.6 sec (0.0-47.0); Dilute Russell Viper Venom Mix 69.2 sec (0.0-47.0); PTT-LA 47.1 sec (0.0-51.9); Thrombin Time 18.3 sec (0.0-23.0); dPT Confirm Ratio 1.19 Ratio (0.00-1.40)
[2018-06-23 11:07] LABS: Protein S, Free 138 % (57-157); Protein S, Funtional 162 % (63-140); Protein S, Total 82 % (60-150)
[2018-06-23 11:08] LABS: Antithrombin 3 Function 107 % (75-135); Interpretation Comment: (.)
== END ==
PROVIDERS: Family Provider Family Medicine; PCP Family Medicine; Visit Provider Nurse Practitioner Adult Health
DX: I26.99 Other pulmonary embolism without acute cor pulmonale (principal)
CPT/HCPCS: 36415; 81241; 85025; 85300; 85305; 85306; 85610

== ENCOUNTER 2018-06-23 10:48 | Emergency (ER) | payer OTHER, SELFPAY ==
[2018-06-23 10:49] VITALS: BP 152/79; PULSE 65; RESP 22; TEMP 36.2; O2SAT 100; BMI 26.6
[2018-06-23] MEDS: Diphth,Pertuss(Acell),Tet Vac 0.5 ML Vial IM (12:36)
--- NOTE | 2018-06-23 13:28 | ED.VISSUMM ---
- ER Visit Summary Date of Service: 06/23/18 Chief Complaint: Injury left index finger and right hand History of Present Illness: The patient is a 52 M who is right-hand dominant. Presents with injury to his left index finger and right hand. This occurred prior to arrival. He is on Xarelto for recently diagnosed pulmonary embolus. He denies any paresthesia, anesthesia buttocks. Immunization unknown. He has no other complaints. Physical Examination: There is a 1 cm laceration dorsal surface left index finger. The extensor in the side tendon is intact. There is no pain to palpation. The flexor digitorum superficialis and flexor digitorum profundus are intact. Sensations intact. Capillary refill is normal. There is no subungual hematoma noted. There is an irregularly-shaped flap laceration webspace between the right index finger and right long finger. The flexor digitorum superficialis and flexor digitorum profundus are intact. Sensations intact. Capillary refill is normal. Extensor commonest and extensor in the side tendon are intact. There is no subungual hematoma noted of any digits right hand. He has full active range of motion of all digits bilaterally. Test Results: None Emergency Department Course and Treatment: Update tetanus immunization. The laceration dorsal hand approximate well with no bleeding and some small based on prior studies suturing is not indicated. The laceration webspace between the right index and long finger was sutured. The wound was prepped draped sterile manner. The area was anesthetized 1% lidocaine. Wound was irrigated with 200 cc normal saline. Using 5-0 Ethilon simple interrupted sutures were placed. Treatment Plan: Appropriate wound care instructions and sutures out in 10 days Disposition: Discharge to home Impression: 1. 2.9 cm laceration right hand irregular and flap 2. Less than 1 cm laceration left index finger not sutured 3. High risk medication, Xarelto for recent diagnosed PE This note was generated with [employer] dictation software. It may contain incorrect words, spelling, and punctuation that were not noted in review of the chart prior to signing ED Disposition - Plan for ED Patient: Chief Complaint: Laceration Instructions: ED Laceration Hand, ED Laceration Small Superf No Sutr Referrals: Nathan Cortes MD [Primary Care Provider] - 10 Day for suture removal Additional Instructions: Clean laceration with peroxide and Q-tip 3 times a day then apply bacitracin ointment. Keep lacerations clean and dry for the next 48 hours.
[2018-06-23 13:46] VITALS: BP 118/69; PULSE 72; RESP 15; O2SAT 98
== END 2018-06-23 13:48 | disposition home or self-care (01) ==
PROVIDERS: Emergency Provider Emergency Medicine; Family Provider Family Medicine; PCP Family Medicine
DX: S61.412A Laceration without foreign body of left hand, initial encounter (principal); S61.211A Laceration without foreign body of left index finger without damage to nail, initial encounter; I26.99 Other pulmonary embolism without acute cor pulmonale; Z72.0 Tobacco use; Z23 Encounter for immunization; Z79.02 Long term (current) use of antithrombotics/antiplatelets; W26.9XXA Contact with unspecified sharp object(s), initial encounter; Y93.89 Activity, other specified; Y92.89 Other specified places as the place of occurrence of the external cause; Y99.8 Other external cause status
CPT/HCPCS: 12002; 90471; 90715; 99284; J7030

== ENCOUNTER 2018-08-24 14:40 | Emergency (ER) | payer OTHER, SELFPAY ==
[2018-08-24 14:40] VITALS: BP 157/91; PULSE 76; RESP 18; TEMP 37.2; O2SAT 98; BMI 26.6
--- NOTE | 2018-08-24 15:31 | RAD_ITS ---
STUDY: X-RAY CHEST REASON FOR EXAM: Male, 52 years old. Cough. TECHNIQUE: 2 views COMPARISON: Prior chest CT exam of June 04, 2018 FINDINGS: Minimal residual infiltrate of the left upper lobe compared to the prior chest CT exam of June 04, 2018 no additional new consolidation or focal atelectasis. The prior left pleural effusion has resolved. Normal size heart. Normal mediastinum and elba. Normal visualized pulmonary arteries. Normal visualized aortic arch and descending thoracic aorta. Normal visualized thoracic spine. Normal visualized ribs, clavicles, and shoulders. There is no demonstrated abnormality of the visualized soft tissue structures of the upper abdomen. RAD/Chest PA and Lateral IMPRESSION: Minimal residual infiltrate of the left upper lobe markedly improved from the large consolidation present on the prior exam. Left pleural effusion has resolved. Negative for new consolidation, focal atelectasis or a substantial pleural effusion. Electronically Signed: Keyana Singer MD at 15:52 EDT , Service support ,
[2018-08-24 15:47] LABS: International Normalized Ratio 1.1; Prothrombin Time (Protime)PT. 13.8 SECONDS (11.7-14.9)
[2018-08-24 15:50] LABS: Absolute Lymphocyte Count 0.98 X10^3/ul (0.83-4.51); Absolute Neutrophil Count 3.5 X10^3/uL (2.0-7.7); Basophil# 0.02 X10^3/uL; Basophil% 0.4 % (0-1); D-Dimer Quantitative (DVT/PE) < 0.27 FEU/ug/m (0.27-0.49); Eosinophil# 0.06 X10^3/uL; Eosinophils% 1.2 % (0-5); Hematocrit 40.4 % (40-54); Hemoglobin 13.9 g/dl (13.0-16.5); Lymphocyte # 0.98 X10^3/ul (4.0); Lymphocyte % 19.2 % (19-41); Mean Corp Hgb Conc 34.4 g/gl (32-36); Mean Corpuscular Hgb 31.2 pg (27.0-32.0); Mean Corpuscular Volume 90.6 fL (80-94); Mean Platelet Vol. 10.2 fl (6.2-12.0); Monocyte# 0.55 X10^3/uL; Monocyte% 10.8 % (0-10); Neutrophil # 3.47 X10^3/uL (2.7-7.7); Platelet Count 174 K/mm3 (150-450); RBC Distribution Width CV 12.6 % (11.6-14.6); RBC Distribution Width SD 41.5 fl (35.1-43.9); Red Blood Count 4.46 M/mm3 (4.6-6.2); White Blood Count 5.1 K/mm3 (4.4-11.0)
[2018-08-24 15:51] LABS: POSITIVE COUNT NO; POSITIVE DIFFERENTIAL NO; POSITIVE MORPHOLOGY NO
[2018-08-24 15:52] LABS: Anion Gap 7 (5-15); BUN 18 mg/dL (7-18); BUN/Creat Ratio 12.9 RATIO (10-20); Calcium,Total 8.6 mg/dL (8.5-10.1); Chloride 104 mmol/L (98-107); Creatinine, Serum 1.39 mg/dL (0.70-1.30); EST Glomerular Filtration Rate 57 mL/min (>60); Est Glom Filt Rate - Afr Amer 69 mL/min (>60); Estimated Creatinine Clearance 77.46 ml/min; Glucose 116 mg/dL (74-106); Potassium 3.7 mmol/L (3.5-5.1); Sodium Level 138 mmol/L (136-145)
--- NOTE | 2018-08-24 16:00 | ED.VISSUMM ---
- ER Visit Summary Date of Service: 08/24/18 Chief Complaint: Cough History of Present Illness: The patient is a 52 M who presents with cough. He has 1 day of chills and productive cough. He coughed up some mucus today which had some bright red blood in it. He states this was about the size of a nickel. He also has some muscle aches and joint aches. He is concerned because he was diagnosed with a DVT and pulmonary embolism on June 04 and had some similar symptoms. He denies any chest pain or shortness of breath. No nausea vomiting or diarrhea. Physical Examination: Afebrile vitals are unremarkable Moist mucous membranes Oropharynx clear Normal nasal inspection no epistaxis or dried blood Heart is regular rate and rhythm Lungs are clear without rales rhonchi or wheezing Abdomen soft Extremities nontender without edema Test Results: Labs notable for creatinine 1.39 otherwise normal. INR normal. D-dimer negative. Two-view chest x-ray shows minimal residual infiltrate in the left lung which is markedly improved from prior there is resolution of the effusion. There is no new consolidation. Emergency Department Course and Treatment: Patient presents with a single episode of hemoptysis. He also has symptoms suggestive of a viral syndrome. Hemoptysis can be seen with simple bronchitis. His d-dimer is negative. He has no evidence of new pulmonary embolism. He was advised to continue his current medications. The chest x-ray is markedly improved from prior there is still some minimal residual infiltrate but no new consolidation. I do not believe he has new pneumonia given lack of shortness of breath leukocytosis tachycardia. He was advised to follow-up with his primary care physician for reevaluation in a couple of days. He understands return for new or worsening symptoms and was instructed on specific signs and symptoms to monitor for. Treatment Plan: [] Disposition: Discharge Impression: Bronchitis This note was generated with [employer] dictation software. It may contain incorrect words, spelling, and punctuation that were not noted in review of the chart prior to signing ED Disposition - Plan for ED Patient: Chief Complaint: Cough Referrals: Nathan Cortes MD [Primary Care Provider] -
--- NOTE | 2018-08-24 16:03 | ED.DCSUM_ITS ---
- ER Visit Summary Date of Service: 08/24/18 Chief Complaint: Cough History of Present Illness: The patient is a 52 M who presents with cough. He has 1 day of chills and productive cough. He coughed up some mucus today which had some bright red blood in it. He states this was about the size of a nickel. He also has some muscle aches and joint aches. He is concerned because he was diagnosed with a DVT and pulmonary embolism on June 04 and had some similar symptoms. He denies any chest pain or shortness of breath. No nausea vomiting or diarrhea. Physical Examination: Afebrile vitals are unremarkable Moist mucous membranes Oropharynx clear Normal nasal inspection no epistaxis or dried blood Heart is regular rate and rhythm Lungs are clear without rales rhonchi or wheezing Abdomen soft Extremities nontender without edema Test Results: Labs notable for creatinine 1.39 otherwise normal. INR normal. D -dimer negative. Two-view chest x-ray shows minimal residual infiltrate in the left lung which is markedly improved from prior there is resolution of the effusion. There is no new consolidation. Emergency Department Course and Treatment: Patient presents with a single episode of hemoptysis. He also has symptoms suggestive of a viral syndrome. Hemoptysis can be seen with simple bronchitis. His d-dimer is negative. He has no evidence of new pulmonary embolism. He was advised to continue his current medications. The chest x-ray is markedly improved from prior there is still some minimal residual infiltrate but no new consolidation. I do not believe he has new pneumonia given lack of shortness of breath leukocytosis tachycardia. He was advised to follow-up with his primary care physician for reevaluation in a couple of days. He understands return for new or worsening symptoms and was instructed on specific signs and symptoms to monitor for. Treatment Plan: [] Disposition: Discharge Impression: Bronchitis This note was generated with [employer] dictation software. It may contain incorrect words, spelling, and punctuation that were not noted in review of the chart prior to signing ED Disposition - Plan for ED Patient: Chief Complaint: Cough Referrals: Nathan Cortes MD [Primary Care Provider] -
--- NOTE | 2018-08-24 16:03 | ED.DEP ---
ED Disposition - Plan for ED Patient: Chief Complaint: Cough Instructions: Acute Bronchitis, ED Hemoptysis Referrals: Nathan Cortes MD [Primary Care Provider] -
[2018-08-24 16:28] VITALS: BP 136/97; PULSE 74; RESP 16; O2SAT 97
--- NOTE | 2018-08-25 15:37 | CM.ED ---
ED CALLBACK: Follow-up call placed to patient. Patient states I'm feeling a lot better. He states that he doesn't plan to see Dr. Cortes if he continues to improve. I advised that he go ahead and make an appointment, just in case he is not feeling completely better. Patient states agreement with this plan. Patient denies further needs, questions or concerns at this time.
== END 2018-08-24 16:30 | disposition home or self-care (01) ==
LOC: ED 15:20
PROVIDERS: Emergency Provider Emergency Medicine; Family Provider Family Medicine; PCP Family Medicine
DX: J40 Bronchitis, not specified as acute or chronic (principal); Z86.718 Personal history of other venous thrombosis and embolism; Z86.711 Personal history of pulmonary embolism; Z72.0 Tobacco use; Z79.02 Long term (current) use of antithrombotics/antiplatelets
CPT/HCPCS: 71046; 80048; 85025; 85379; 85610; 99283; A4216

== ENCOUNTER → 2018-10-27 14:52 | Outpatient (CLI) | payer OTHER, SELFPAY ==
--- NOTE | 2018-10-27 14:56 | RAD_ITS ---
HISTORY: low back pain into left leg COMPARISON: None FINDINGS: XR Spine Lumbar 5 Views: Straightening of the lumbar spine. Lumbar vertebra are normal in height. No fracture or suspicious bony lesion. Disc space narrowing moderate to marked at the L5-S1 level and mild at the L4-5 level. L5-S1 mild facet joint arthritis. No spondylolisthesis. The SI joints appear preserved. RAD/L/S Spine Min 4 Views IMPRESSION: The principal finding is L5-S1 degenerative disc disease and facet joint arthritis. at 0432 Reported and signed by: Manan Butler MD Electronically Signed: Manan Butler, at 4:30 EST Tel , Service support ,
--- NOTE | 2018-10-27 14:56 | RAD_ITS ---
HISTORY: neck pain and left arm numbness COMPARISON: None FINDINGS: XR Spine Cervical 4 or 5 Views: Straightening of the cervical spine. Cervical vertebra are normal in height. No fracture. C5-6 and C6-7 disc space narrowing accompanied by endplate spurring. Uncovertebral spurring with foraminal narrowing of the same 2 levels on the left. The C1-C2 relationship appears normal. RAD/Cerv Spine 4 or 5 Views IMPRESSION: C5-6 and C6-7 degenerative disc disease and spondylosis with foraminal narrowing on the left at these 2 levels secondary to uncovertebral spurring at 0416 Reported and signed by: Manan Butler MD Electronically Signed: Manan Butler, at 4:14 EST Tel , Service support ,
[2018-10-27 17:41] LABS: Hematocrit 44.2 % (40-54); Mean Corp Hgb Conc 33.9 g/gl (32-36); Mean Corpuscular Hgb 30.6 pg (27.0-32.0); Mean Corpuscular Volume 90.2 fL (80-94); Platelet Count 212 K/mm3 (150-450); Prothrombin Time (Protime)PT. 12.7 SECONDS (11.7-14.9); RBC Distribution Width CV 12.5 % (11.6-14.6); RBC Distribution Width SD 40.5 fl (35.1-43.9); Scan Indicated on CBC? Y/N NO; White Blood Count 7.4 K/mm3 (4.4-11.0)
[2018-10-27 17:42] LABS: Partial Thromboplast Time 29.9 Seconds (24.1-36.2)
[2018-10-27 17:44] LABS: Homocysteine 12.2 umol/L (3.2-10.7)
[2018-10-27 17:47] LABS: Anion Gap 11 (5-15); BUN 23 mg/dL (7-18); BUN/Creat Ratio 13.9 RATIO (10-20); Calcium,Total 9.3 mg/dL (8.5-10.1); Chloride 103 mmol/L (98-107); Creatinine, Serum 1.66 mg/dL (0.70-1.30); EST Glomerular Filtration Rate 46 mL/min (>60); Est Glom Filt Rate - Afr Amer 56 mL/min (>60); Glucose 75 mg/dL (74-106); Potassium 3.7 mmol/L (3.5-5.1); Sodium Level 141 mmol/L (136-145)
[2018-11-05 20:09] LABS: Protein C Antigen 107 % (60-150); Protein C, Functional 131 % (73-180)
[2018-11-06 08:52] LABS: Anti-Cardiolipin Ab, IgA, Qn < 9 APL U/mL (0-11); Anti-Cardiolipin Ab, IgG, Qn < 9 GPL U/mL (0-14); Anti-Cardiolipin Ab, IgM, Qn 10 MPL U/mL (0-12); Protein S, Free 105 % (57-157); Protein S, Funtional 98 % (63-140); Protein S, Total 82 % (60-150)
--- OUTSIDE RECORDS SUMMARY | 2018-12-09 13:07 | XMS RPT_ITS ---
:1965 Author Organization OHIP Support Name Relationship Address Phone JALYN WILLOUGHBY Unavailable [address] + [place] [address] WILLOUGHBY, KENDRICK Unavailable [address] + [place] [address] [employer] Unavailable [address] + [place] [address] WILLOUGHBY, JALYN Unavailable [address] + [place] [address] WILLOUGHBY, KENDRICK Unavailable [address] + [place] [address] [employer] Unavailable [address] + [place] [address] WILLOUGHBY, JALYN Unavailable [address] + [place] [address] WILLOUGHBY, KENDRICK Unavailable [address] + [place] [address] [employer] Unavailable [address] + [place] [address] WILLOUGHBY, JALYN Unavailable [address] + [place] [address] WILLOUGHBY, KENDRICK Unavailable [address] + [place] [address] [employer] Unavailable [address] + [place] [address] WILLOUGHBY, JALYN Unavailable [address] + [place] [address] WILLOUGHBY, KENDRICK Unavailable [address] + [place] [address] [employer] Unavailable [address] + [place] [address] WILLOUGHBY, JALYN Unavailable [address] + [place] [address] WILLOUGHBY, KENDRICK Unavailable [address] + [place] [address] [employer] Unavailable [address] + [place] [address] WILLOUGHBY, JALYN Unavailable [address] + [place] [address] WILLOUGHBY, KENDRICK Unavailable [address] + [place] [address] [employer] Unavailable [address] + [place] [address] WILLOUGHBY, JALYN Unavailable [address] + [place] [address] WILLOUGHBY, KENDRICK Unavailable [address] + [place] [address] [employer] Unavailable [address] + [place] [address] WILLOUGHBY, JALYN Unavailable [address] + [place] [address] WILLOUGHBY, KENDRICK Unavailable [address] + [place] [address] [employer] Unavailable [address] + [place] [address] Care Team Providers Name Role Phone Jam Cortes Primary Care Unavailable Filiberto Bazan Admitting Unavailable Filiberto Bazan Attending Unavailable Filiberto Bazan Admitting Unavailable [place], [place] Attending Unavailable Jam Cortes Primary Care Unavailable [place], [place] Consulting Unavailable Michelle Aldrich Attending Unavailable Jam Cortes Primary Care Unavailable Filiberto Bazan Attending Unavailable Jam Cortes Primary Care Unavailable Topher Galicia Attending Unavailable Odilon Suh Attending Unavailable Jam Cortes Primary Care Unavailable Lucas Goodman Attending Unavailable Jam Cortes Attending Unavailable Joel Corteser Referring Unavailable [facility] Unavailable Sebastian, [facility], [place] Attending Unavailable Sebastian, [place] [facility]erring [facility], [place] Primary Care Unavailable PROBLEMS PROBLEMS DATE TYPE CONDITION / ATTENDING STATUS SOURCE CODE 11/11/2018 Unknown I26.99 - Other Sebastian, Active [place] [facility] without acute Repository cor pulmonale / I26.99(ICD-10) PROCEDURES PROCEDURES No Procedure Records FoundRESULTS RESULTS INITAL EVALUATION (1) Observed: 11/17/2018 Status: F Source: [facility] - PT 6:45 AM [facility] REPOSITORY [facility] [address] [place], [place] [address] Fax REHABILITATION SERVICES INITIAL EVALUATION MR#: [id number] Acct: [id number] Name: RUBÉN WILLOUGHBY Rep #: [id number] : 1965 53 From: Rubén Ng DPT, BATSHEVA, CSCS Referring Dr.: Jam Cortes MD Status: REG R Insurance: [facility] SELF PAY INSURANCE Patient's Visit Information RUBÉN WILLOUGHBY is a 53 year old M referred to Physical Therapy by Nathan Cortes MD with a diagnosis of lumbago with sciatica and cervical radiculopathy.. Date of Evaluation: 11/13/18 Physical Therapist: Rubén Ng DPT, BATSHEVA, CSCS - Visit Plan Frequency: 2x /Week Duration: 4-6 Weeks Plan: 2x/week for 3-6 weeks for: 1. cervical retraction ex and manual traction with L UT and SCM stretching. 2. LB flexion bias stretching and ROM and NS strength. body mechanics and posture. Progress all to HEP. May use ES and MH if needed for pain. - Subjective Findings: L neck pain for a long time...years. 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 In last two months has progressed tingling laterally from elbow to index finger L UE. Last two weeks tingling inermittently up to upper arm. Happens a couple times per day and lasts 5 minutes as he moves it out. Neck pain is central to L constant. Working at [employer] and is better on the go. Worse in morning and if sitting. Only gets 2-3 hours per night due to pain out of a normal 6/10. Basic ADLs are good . 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 LBP is sciatic and had it long time since August with sudden central LBP while cutting a few trees down. Chiropractor helped LBP go away sciatic in L buttocks got worse. Constant at 3/10. Worse in am and at night. Hard to bend in morning. No problems coughing or sneezing or urinating problems. No regualr back or neck ex. - Pain L neck Pain Intensity (Out of 10): 7 Pain Intensity Range: 2, 10 - Objective Walks and trasnfers I without difficulty. Forward head posture with flat lordosis in lumbar and cervical spine. C/S AROM is limited in retraction, ext is 45, SB is painful L B and rotation is 55 B no pain. reflexes UE 2/3 bi and tri. Sensation UE WNL to gross light touch. Strength UE 5/5. repeated cervical retraction in supine diminishes L scap pain. LB AROM ext mod limited. SB are WFL, flexion is stiff with L leg pain in HS and glut. reflexes 2/3 patella and achilles B. Sensation is at deficit L lateral lower leg. Strength is 5/5 except L DF 4+. - Goals Goal 1:: Abolish UE adn LE numb, tingly and pain 1/10 in LB and 2/10 in L neck at most adn 75% improved. Goal Time Frame: 4-6 Weeks Goal 2:: sleep without interruption form pain Goal Time Frame: 4-6 Weeks Goal 3:: I approp ex to minimize future problems Goal Time Frame: 4-6 Weeks Goal 4:: Get up in morning without back or neck pain. Goal Time Frame: 4-6 Weeks - Rehabilitation Potential Physical Therapy Diagnosis: lumbar stenosis and cervical radiculopathy. Rehabilitation Potential: Fair - Anticipated Interventions Patient/Client Instruction: Educate patient on: Condition, Plan of Care For the Purpose of:: To decrease pain, To increase tolerance to activity/condition/position Therapeutic Exercise to Include: Strength training, Flexibilty training, Passive ROM, Active ROM, Dynamic Lumbar Stabilization For the Purpose of:: To decrease pain, To increase ROM, To increase tolerance to activity/condition/position, To improve ability of physical actions for home/community/work/leisure Manual Therapy Techniques to Include: Mobilization For the Purpose of:: To increase ROM TENS: Yes Thermo therapy (hot pack): Yes For the Purpose of:: To decrease pain Thank you for the opportunity to evaluate your patient. For Medicare and Medicare HMO plans, please review the plan of care and approve it. It will need to be FAXED BACK to us at [phone] for Medicare purposes. For Medicare only, by signing this I certify the plan of care. Please let me know if there are questions or concerns regarding this plan of care. Physician Signature: Date: <Electronically signed by Rubén CHEEMAT, OCS, CSCS> 11/17/18 0645 CC: Jam Cortes MD EBG Signed HOMOCYSTEINE Collected: 10/27/2018 Status: F Source: [facility]A 3:10 PM [facility] REPOSITORY TYPE CODE TESTS RESULT OUT OF REFERENCE UNITS RANGE LAB L503.8001 3.2-10.7 umol/L HOMOCYSTEINE High 12.2 Performed By: #### L503.8001 #### [facility] [address] [place], [address] MISCELLANEOUS LAB Collected: 10/27/2018 Status: F Source: QING PROCEDURE 2 3:10 PM [facility] REPOSITORY Order Comment: List Test(s) Ordered by Physician: EMIGDIO#[id number] ANTITHROMBIN FROZEN PLASMA TYPE CODE TESTS RESULT OUT OF RANGE REFERENCE UNITS LAB L801.1543 Normal [facility] LAB TEST 2 Result Comment: TEST RESULT LIMITS Antithrombin Activity 109 % 75 - 135 Direct Xa inhibitor anticoagulants such as rivaroxaban, apixaban and edoxaban will lead to spuriously elevated antithrombin activity levels possibly masking a deficiency. TESTING PERFORMED AT [facility]. ORIGINAL REPORT ON FILE IN LAB CONTAINS ADDITIONAL TEST SITE INFORMATION. Performed By: #### L801.1543 #### [facility] [address] [place], [address] MISCELLANEOUS LAB Collected: 10/27/2018 Status: F Source: Q[place] PROCEDURE 3:10 PM [facility] REPOSITORY Order Comment: Test(s) Ordered: #[id number] ANTIPHOSPHLIPID FROZEN PL/SERUM TYPE CODE TESTS RESULT OUT OF RANGE REFERENCE UNITS LAB L801.1541 Normal [facility] LAB TEST Result Comment: TEST RESULT LIMITS Antiphospholipid Syndrome aPTT 30.3 High sec 22.9 - 30.2 PT 11.4 sec 9.6 - 11.5 INR 1.1 0.9 - 1.1 Reference interval is for non-anticoagulated patients. Suggested INR therapeutic range for Vitamin K antagonist therapy: Standard Dose (moderate intensity therapeutic range): 2.0 - 3.0 Higher intensity therapeutic range 2.5 - 3.5 Thrombin Time 20.6 sec 0.0 - 23.0 dRVVT 51.6 High sec 0.0 - 47.0 dRVVT Confirm 1.4 High ratio 0.8 - 1.2 Hexagonal Phase Phospholipid 9 sec 0 - 11 Anticardiolipin Ab,IgG,Qn <9 GPL U/mL 0 - 14 Negative: <15 Indeterminate: 15 - 20 Low-Med Positive: >20 - 80 High Positive: >80 Anticardiolipin Ab,IgM,Qn 10 MPL U/mL 0 - 12 Negative: <13 Indeterminate: 13 - 20 Low-Med Positive: >20 - 80 High Positive: >80 Anticardiolipin Ab,IgM,Qn 10 MPL U/mL 0 - 12 Negative: <13 Indeterminate: 13 - 20 Low-Med Positive: >20 - 80 High Positive: >80 Beta-2 Glycoprotein I Ab, IgG <9 GPI IgG units 0 - 20 Please Note: The reference interval reflects a 3SD or 99th percentile interval, which is thought to represent a potentially clinically significant result in accordance with the International Consensus Statement on the classification criteria for definitive antiphospholipid syndrome (APS). J Thromb Haem 2006;4:295-306. Beta-2 Glycoprotein I Ab, IgM <9 GPI IgM units 0 - 32 Please Note: The reference interval reflects a 3SD or 99th percentile interval, which is thought to represent a potentially clinically significant result in accordance with the International Consensus Statement on the classification criteria for definitive antiphospholipid syndrome (APS). J Thromb Haem 2006;4:295-306. APS Panel Interpretation Please refer to the Coag Studies Interp Report. Coag Studies Interp Report Interpretation Note COAGULATION: ANTIPHOSPHOLIPID SYNDROME ASSESSMENT ASSESSMENT Only one of two confirmatory lupus anticoagulant tests is abnormal. An isolated, weakly positive dRVVT is interpreted as indeterminate for the presence of a lupus anticoagulant. As the aPTT is only minimally elevated, normal plasma mixing studies cannot be accurately interpreted. Therefore, the normal plasma mixing study was not performed. aCL and B2GP1 antibodies are normal. ANTIPHOSPHOLIPID SYNDROME ASSESSMENT SUMMARY - Results are indeterminate for the presence of a lupus anticoagulant. As only persistent lupus anticoagulants or antiphospholipid antibodies are associated with an increased risk for thrombosis, repeat testing is recommended after 12 weeks. ANTIPHOSPHOLIPID SYNDROME ASSESSMENT DEFINITIONS - aCL- anticardiolipin (antibodies to cardiolipin); B2GP1- antibodies to Beta-2 Glycoprotein 1; LA- lupus anticoagulant (which is identified with the dRVVT and/or hexagonal phospholipid neutralization assays); aPL- antibodies to protein/phospholipid complexes such as LA, aCL, and B2GP1 antibodies; APS- antiphospholipid syndrome; DTI-direct thrombin inhibitors. - MORTGAGE LOAN CLOSER: For questions regarding panel interpretation, please contact Louie Blakely M.D. at [facility] at . DISCLAIMER These assessments and interpretations are provided as a convenience in support of the physician-patient relationship and are not intended to replace the physician's clinical judgment. They are derived from national guidelines in addition to other evidence and expert opinion. The clinician should consider this information within the context of clinical opinion and the individual patient. SEE GUIDANCE FOR ANTIPHOSPHOLIPID SYNDROME ASSESSMENT:(1) Dustin V et al. J Thromb Haemost. 2009; 7(10):1016-4579. (2) Talia S et al. J Thromb Haemost. 2006;4(2):295-306. (3) Vipin DA et al. Blood. 2007;110(9): 5856-2375. TESTING PERFORMED AT [facility]. ORIGINAL REPORT ON FILE IN LAB CONTAINS ADDITIONAL TEST SITE INFORMATION. Performed By: #### L801.1541 #### [facility] [address] [place], [address] PROTEIN S DEFIC. Collected: 10/27/2018 Status: F Source: [facility] PROFILE 3:10 PM [facility] REPOSITORY TYPE CODE TESTS RESULT OUT OF RANGE REFERENCE UNITS LAB L3100.7100 60-150 % Normal PROTEIN 82 S,TOTAL Result Comment: This test was developed and its performance characteristics determined by [employer]. It has not been cleared or approved by the Food and Drug Administration. LAB L3100.7200 57-157 % Normal PROTEIN S, FREE 105 Result Comment: This test was developed and its performance characteristics determined by [facility]. It has not been cleared or approved by the Food and Drug Administration. LAB L3100.7260 63-140 % Normal PROTEIN S, FUNC 98 Result Comment: Protein S activity may be falsely increased (masking an abnormal, low result) in patients receiving direct Xa inhibitor (e.g., rivaroxaban, apixaban, edoxaban) or a direct thrombin inhibitor (e.g., dabigatran) anticoagulant treatment due to assay interference by these drugs. Performed By: #### L3100.7075, L3100.7275, L3100.8408, L4500.5000, L4600.0155 #### [facility] (refer to report for specific site) refer to report for address and phone number PROTEIN C DEFIC. Collected: 10/27/2018 Status: F Source: QING PROFILE 3:10 PM [facility] REPOSITORY TYPE CODE TESTS RESULT OUT OF RANGE REFERENCE UNITS LAB L3100.7310 60-150 % Normal PROTEIN C 107 LAB L3100.7335 73-180 % Normal PROT C,FUNC 131 Performed By: #### L3100.7075, L3100.7275, L3100.8408, L4500.5000, L4600.0155 #### [facility] (refer to report for specific site) refer to report for address and phone number ANTICARDIOLIPIN IGA,G,M Collected: 10/27/2018 Status: F Source: QING 3:10 PM [facility] REPOSITORY TYPE CODE TESTS RESULT OUT OF RANGE REFERENCE UNITS LAB L3100.8420 0-14 GPL U/mL Normal ANTICARDIO IgG < 9 Result Comment: Negative: <15 Indeterminate: 15 - 20 Low-Med Positive: >20 - 80 High Positive: >80 LAB L3100.8425 0-12 MPL U/mL ANTICARDIO Normal IgM 10 Result Comment: Negative: <13 Indeterminate: 13 - 20 Low-Med Positive: >20 - 80 High Positive: >80 LAB L3100.8430 0-11 APL U/mL Normal ANTICARDIO IgA < 9 Result Comment: Negative: <12 Indeterminate: 12 - 20 Low-Med Positive: >20 - 80 High Positive: >80 Performed By: #### L3100.7075, L3100.7275, L3100.8408, L4500.5000, L4600.0155 #### [facility] (refer to report for specific site) refer to report for address and phone number FACT V LEIDEN Collected: 10/27/2018 Status: F Source: QING MUTATION 3:10 PM [facility] REPOSITORY TYPE CODE TESTS RESULT OUT OF RANGE REFERENCE UNITS LAB L4500.5100 . Normal FACTOR V Comment LEIDEN Result Comment: Result: Negative (no mutation found) Factor V Leiden is a specific mutation (R506Q) in the factor V gene that is associated with an increased risk of venous thrombosis. Factor V Leiden is more resistant to inactivation by activated protein C. As a result, factor V persists in the circulation leading to a mild hyper- coagulable state. The Leiden mutation accounts for 90% - 95% of APC resistance. Factor V Leiden has been reported in patients with deep vein thrombosis, pulmonary embolus, central retinal vein occlusion, cerebral sinus thrombosis and hepatic vein thrombosis. Other risk factors to be considered in the workup for venous thrombosis include the P32602B mutation in the factor II (prothrombin) gene, protein S and C deficiency, and antithrombin deficiencies. Anticardiolipin antibody and lupus anticoagulant analysis may be appropriate for certain patients, as well as homocysteine levels. Contact your local [facility] for information on how to order additional testing if desired. Genetic counselors are available for health care providers to discuss results at [phone] Methodology: DNA analysis of the Factor V gene was performed by allele- specific PCR. The diagnostic sensitivity and specificity is >99% for both. Molecular-based testing is highly accurate, but as in any laboratory test, diagnostic errors may occur. All test results must be combined with clinical information for the most accurate interpretation. This test was developed and its performance characteristics determined by [facility]. It has not been cleared or approved by the Food and Drug Administration. References: Milton Maier (1996). Clin Lab Med 16:169-186. Gene Danielle, PhD, [facility] Caroline Farah, PhD, [facility] Suresh RodasSJosselyn, PhD, FAC Concetta López, PhD, FAC Eve Lindsey, PhD, [facility] Filiberto Mccabe PhD, [facility] Performed By: #### L3100.7075, L3100.7275, L3100.8408, L4500.5000, L4600.0155 #### [facility] (refer to report for specific site) refer to report for address and phone number MTHFR DNA VARIANT Collected: 10/27/2018 Status: F Source: [facility] 3:10 PM [facility] REPOSITORY TYPE CODE TESTS RESULT OUT OF RANGE REFERENCE UNITS LAB L4600.0205 . Normal MTHFR DNA Comment Result Comment: Result: C677T/N0642B Two mutations (C677T and P1664D) identified Interpretation: This individual is heterzygous for both the MTHFR C677T and J1030J variants (one copy of each). Compound heterozygosity for the C677T and K3960J variants is unlikely to be of clinical significance, based on consensus of published reports. This combination of results, however, may be associated with increased risk for the development of hyperhomocysteinemia when the individual is deficient in folate, vitamin B6, or vitamin B12. A fasting homocysteine level should be measured. This genotype alone in the absence of hyperhomocysteinemia, does not increase risk of venous thrombosis, coronary artery disease or recurrent loss. However, hyperhomocysteinemia may also occur due to mutations in enzymes other than MTHFR that are involved in homocysteine metabolism, or arise due to acquired factors. In the evaluation of vascular and obstetric risk, consider measuring fasting homocysteine. Additional risk factors may be detected through systematic clinical laboratory analysis. Methylenetetrahydrofolate reductase (MTHFR) is a sterling enzyme in the folate pathway and is responsible for the metabolism of homocysteine. There are two common variants in the MTHFR gene, c.655c>T (p.Ldp787Dbjq), referred to as C677T, and c.1286A>C (p.Wzj377Voz), referred to as P7499G. Individuals homozygous for C677T (two copies of the variant), have decreased activity of the MTHFR enzyme and a predisposition to hyperhomocysteinemia, particularly when deficient in folate. Hyperhomocysteinemia is a risk factor for venous thrombosis and coronary artery disease and is associated with an increased risk of open neural tube defects. The C677T variant does not independently increase risk of these conditions in the absence of hyperhomocysteinemia. The B4309I variant is not associated with elevated homocysteine levels unless a C677T variant is also present; however, the clinical significance of heterozygosity for both C677T and V8088Z is controversial. Population data suggest that these two variants are not present on the same chromosome, but rare exceptions have been reported of triple variant MTHFR genotypes (ie. homozygous for one variant and heterozygous for the other). Homozygosity for C677T has an estimated frequency of 10% to 15% in Caucasians and 25% in Hispanics. Additional information: Dietary folic acid, B6 and B12 supplementation has been suggested to lower homocysteine levels in some people. Folic acid supplementation has been shown to reduce the occurrence of neural tube defects. Genetic counselors are available for health care providers to discuss results at [phone]. Methodology: DNA analysis of the MTHFR gene was performed by PCR amplification followed by restriction analysis. The diagnostic sensitivity is >99% for both. Molecular-based testing is highly accurate, but as in any laboratory test, rare diagnostic errors may occur. All test results must be combined with clinical information for the most accurate interpretation. This test was developed and its performance characteristics determined by [facility]. It has not been cleared or approved by the Food and Drug Administration. References: Eno LD, Canela Q. Am J Epidemiol 2000; 151(9):862-877. Clover MM, Berkley JA. Arch Pathol Lab Med 2007; 131(6):872-884. Frosst P et al. Amanda Lelo 1995; 10(1):111-113. Hickey SE et al. Lelo Med 2013; 15(2):153-156. Galina C et al. Obstet Gynecol 2011; 118(3):730-740. Tyson B et al. Eur J Epidemiol 2013; 28(8):621-647. Gene Danielle, PhD, [facility] Caroline Farah, PhD, [facility] Suresh RodasS., PhD, [facility] Concetta López, PhD, [facility] Eve Lindsey, PhD, FAC Filiberto Mccabe, PhD, FAC Performed at: - [address] [id number] [employer] [place] [employer]: Dayami Valerio MD, Phone: [phone] Performed at: [address] [id number] [employer] [place] [employer]: Lloyd Rodriguez PhD, Phone: [phone] Performed at: [facility] [address] [id number] [employer] [place] [employer]: Artem Vital MD, Phone: [phone] Performed By: #### L3100.7075, L3100.7275, L3100.8453, L4500.1497, L4600.0155 #### [facility] (refer to report for specific site) refer to report for address and phone number CBC-COMPLETE BLOOD CNT Collected: 10/27/2018 Status: F Source: Q[place] NO DIFF 2:58 PM [facility] REPOSITORY TYPE CODE TESTS RESULT OUT OF RANGE REFERENCE UNITS LAB L100.1000 4.4-11.0 K/mm3 Normal WBC 7.4 LAB L100.1200 4.6-6.2 M/mm3 Normal RBC 4.90 LAB L100.1300 13.0-16.5 g/dl Normal HGB 15.0 LAB L100.1400 40-54 % Normal HCT 44.2 LAB L100.1500 80-94 fL Normal MCV 90.2 LAB L100.1600 27.0-32.0 pg Normal MCH 30.6 LAB L100.1700 32-36 g/gl Normal MCHC 33.9 LAB L100.1810 11.6-14.6 % Normal RDW CV 12.5 LAB L100.1820 35.1-43.9 fl Normal RDW SD 40.5 LAB L100.1900 150-450 K/mm3 Normal PLT 212 LAB L100.2000 6.2-12.0 fl Normal MPV 10.0 Performed By: #### L100.0500, L300.3900, L300.4310, L500.2500 #### [facility] [address] [place], [address] PROTHROMBIN TIME W/INR Collected: 10/27/2018 Status: F Source: [place] 2:58 PM [facility] REPOSITORY TYPE CODE TESTS RESULT OUT OF RANGE REFERENCE UNITS LAB L300.4150 11.7-14.9 SECONDS Normal PROTIME 12.7 LAB L300.4200 Normal INR 1.0 Performed By: #### L100.0500, L300.3900, L300.4310, L500.2500 #### [facility] [address] [place], [place], [id number] PARTIAL THROMBOPLAST Collected: 10/27/2018 Status: F Source: [place] TIME 2:58 PM [facility] REPOSITORY TYPE CODE TESTS RESULT OUT OF RANGE REFERENCE UNITS LAB L300.4310 24.1-36.2 Seconds Normal PTT 29.9 Performed By: #### L100.0500, L300.3900, L300.4310, L500.2500 #### [facility] [address] [place], [address] BASIC METABOLIC Collected: 10/27/2018 Status: F Source: QING PROFILE (BMP) 2:58 PM [facility] REPOSITORY TYPE CODE TESTS RESULT OUT OF RANGE REFERENCE UNITS LAB L501.0100 74-106 mg/dL Normal GLU 75 Result Comment: Please note revised GLUCOSE reference range effective 2018. LAB L501.1000 7-18 mg/dL High BUN 23 LAB L501.1100 0.70-1.30 mg/dL High CREAT,SERUM 1.66 Result Comment: The validity of the calculated GFR AND GFRAA in patients over 70 years has not been determined. Clinical correlation is essential. LAB L501.1110 >60 mL/min Low EST GFR 46 Result Comment: Non- GFR Calc LAB L501.1115 >60 mL/min Low EST GFR - AA 56 Result Comment: GFR Calc LAB L501.1300 10-20 RATIO Normal BUN/CRE 13.9 LAB L501.2200 8.5-10.1 mg/dL CA Normal 9.3 LAB L501.5300 136-145 mmol/L NA Normal 141 LAB L501.5600 3.5-5.1 mmol/L K Normal 3.7 LAB L501.5900 98-107 mmol/L CL Normal 103 LAB L501.6100 21.0-32.0 mmol/L Normal CO2 27.0 LAB L501.6200 5-15 Normal GAP 11 Performed By: #### L100.0500, L300.3900, L300.4310, L500.2500 #### [facility] [address] [place], [address] CERV SPINE 4 OR 5 Observed: 10/27/2018 Status: F Source: QING VIEWS 2:56 PM [facility] REPOSITORY [facility] Imaging Services [address] [place] [address] Cerv Spine 4 or 5 Views MR#: [id number] Acct: [id number] Name: RUBÉN WILLOUGHBY Rep #: [id number] : 1965 M 53 From: Manan Butler MD PCP: Jam Cortes MD Status: REG CLI Study: Cerv Spine 4 or 5 Views Date of Exam: 10/27/18 Exam# [id number] Ordering Dr: Nathan Cortes MD HISTORY: neck pain and left arm numbness COMPARISON: None FINDINGS: XR Spine Cervical 4 or 5 Views: Straightening of the cervical spine. Cervical vertebra are normal in height. No fracture. C5-6 and C6-7 disc space narrowing accompanied by endplate spurring. Uncovertebral spurring with foraminal narrowing of the same 2 levels on the left. The C1-C2 relationship appears normal. RAD/Cerv Spine 4 or 5 Views IMPRESSION: C5-6 and C6-7 degenerative disc disease and spondylosis with foraminal narrowing on the left at these 2 levels secondary to uncovertebral spurring at 0416 Reported and signed by: Manan Butler MD Electronically Signed: Manan Butler, at 4:14 EST Tel , Service support , CC: Jam Cortes MD Construction Stonemason: Signed L/S SPINE MIN 4 Observed: 10/27/2018 Status: F Source: SPARTA VIEWS 2:56 PM [facility] REPOSITORY [facility] Imaging Services [address] [place] [address] L/S Spine Min 4 Views MR#: [id number] Acct: [id number] Name: RUBÉN WILLOUGHBY Rep #: [id number] : 1965 M 53 From: Manan Butler MD PCP: Jam Cortes MD Status: REG CLI Study: L/S Spine Min 4 Views Date of Exam: 10/27/18 Exam# [id number] Ordering Dr: Nathan Cortes MD HISTORY: low back pain into left leg COMPARISON: None FINDINGS: XR Spine Lumbar 5 Views: Straightening of the lumbar spine. Lumbar vertebra are normal in height. No fracture or suspicious bony lesion. Disc space narrowing moderate to marked at the L5-S1 level and mild at the L4-5 level. L5-S1 mild facet joint arthritis. No spondylolisthesis. The SI joints appear preserved. RAD/L/S Spine Min 4 Views IMPRESSION: The principal finding is L5-S1 degenerative disc disease and facet joint arthritis. at 0432 Reported and signed by: Manan Butler MD Electronically Signed: Manan Butler, at 4:30 EST Tel , Service support , CC: Jam Cortes MD Construction Stonemason: Signed DISCHARGE INSTRUCTION Observed: 08/24/2018 Status: F Source: QING 4:04 PM [facility] REPOSITORY [facility] Medical Records Department [address] [place] [address] Discharge Instruction 08/24/18 1603 MR#: [id number] Acct: [id number] Name: RUBÉN WILLOUGHBY Rep #: [id number] : 1965 52 From: Lucas Goodman MD PCP: Jam Cortes MD Status: REG ER ED Disposition - Plan for ED Patient: Chief Complaint: Cough Instructions: Acute Bronchitis, ED Hemoptysis Referrals: Nathan Cortes MD [Primary Care Provider] - What to do if you have Problems For any increased pain, shortness of breath, bleeding, nausea or vomiting, chest pain, or any unexpected problems, contact your Primary Care Provider. Call [facility] ([phone]) or report to the closest Emergency Room. Call 911 if necessary. 08/24/18 1604 <Electronically signed by Lucas Goodman MD> Date Lucas Goodman MD Cosigner Signature (If Indicated): Date CC: Jam Cortes MD EMERGENCY DEPARTMENT Observed: 08/24/2018 Status: F Source: QING SUMMARY 4:03 PM [facility] REPOSITORY [facility] Medical Records Department [address] [place] [address] Emergency Department Summary 08/24/18 1600 MR#: [id number] Acct: [id number] Name: RUBÉN WILLOUGHBY Rep #: [id number] : 1965 52 From: Lucas Goodman MD PCP: Jam Cortes MD Status: REG ER - ER Visit Summary Date of Service: 08/24/18 Chief Complaint: Cough History of Present Illness: The patient is a 52 M who presents with cough. He has 1 day of chills and productive cough. He coughed up some mucus today which had some bright red blood in it. He states this was about the size of a nickel. He also has some muscle aches and joint aches. He is concerned because he was diagnosed with a DVT and pulmonary embolism on June 04 and had some similar symptoms. He denies any chest pain or shortness of breath. No nausea vomiting or diarrhea. Physical Examination: Afebrile vitals are unremarkable Moist mucous membranes Oropharynx clear Normal nasal inspection no epistaxis or dried blood Heart is regular rate and rhythm Lungs are clear without rales rhonchi or wheezing Abdomen soft Extremities nontender without edema Test Results: Labs notable for creatinine 1.39 otherwise normal. INR normal. D-dimer negative. Two-view chest x-ray shows minimal residual infiltrate in the left lung which is markedly improved from prior there is resolution of the effusion. There is no new consolidation. Emergency Department Course and Treatment: Patient presents with a single episode of hemoptysis. He also has symptoms suggestive of a viral syndrome. Hemoptysis can be seen with simple bronchitis. His d-dimer is negative. He has no evidence of new pulmonary embolism. He was advised to continue his current medications. The chest x-ray is markedly improved from prior there is still some minimal residual infiltrate but no new consolidation. I do not believe he has new pneumonia given lack of shortness of breath leukocytosis tachycardia. He was advised to follow-up with his primary care physician for reevaluation in a couple of days. He understands return for new or worsening symptoms and was instructed on specific signs and symptoms to monitor for. Treatment Plan: [] Disposition: Discharge Impression: Bronchitis This note was generated with [employer] software. It may contain incorrect words, spelling, and punctuation that were not noted in review of the chart prior to signing ED Disposition - Plan for ED Patient: Chief Complaint: Cough Referrals: Nathan Cortes MD [Primary Care Provider] - What to do if you have Problems For any increased pain, shortness of breath, bleeding, nausea or vomiting, chest pain, or any unexpected problems, contact your Primary Care Provider. Call [facility] ([phone]) or report to the closest Emergency Room. Call 911 if necessary. 08/24/18 1603 <Electronically signed by Lucas Goodman MD> Date Lucas Goodman MD Cosigner Signature (If Indicated): Date CC: Jam Cortes MD PROTHROMBIN TIME W/INR Collected: 08/24/2018 Status: F Source: SPARTA 3:10 PM [facility] REPOSITORY TYPE CODE TESTS RESULT OUT OF RANGE REFERENCE UNITS LAB L300.4150 11.7-14.9 SECONDS Normal PROTIME 13.8 LAB L300.4200 Normal INR 1.1 Performed By: #### L300.3900, L300.8000 #### [facility] [address] [place], [place], [address] D-DIMER QUANTITATIVE Collected: 08/24/2018 Status: F Source: SPARTA (DVT/PE) 3:10 PM [facility] REPOSITORY TYPE CODE TESTS RESULT OUT OF RANGE REFERENCE UNITS LAB L300.8000 0.27-0.49 FEU/ug/m Low D-DIMER < 0.27 QUANT Result Comment: NORMAL D-Dimer level (<0.50) indicates no DVT or PE. NORMAL D-Dimer level (<0.50) indicates no DVT or PE. Performed By: #### L300.3900, L300.8000 #### [facility] [address] [place], [place], [address] CBC W/DIFF, AUTOMATED Collected: 08/24/2018 Status: F Source: QING 3:10 PM [facility] REPOSITORY TYPE CODE TESTS RESULT OUT OF RANGE REFERENCE UNITS LAB L100.1000 4.4-11.0 K/mm3 Normal WBC 5.1 LAB L100.1200 4.6-6.2 M/mm3 Low RBC 4.46 LAB L100.1300 13.0-16.5 g/dl Normal HGB 13.9 LAB L100.1400 40-54 % Normal HCT 40.4 LAB L100.1500 80-94 fL Normal MCV 90.6 LAB L100.1600 27.0-32.0 pg Normal MCH 31.2 LAB L100.1700 32-36 g/gl Normal MCHC 34.4 LAB L100.1810 11.6-14.6 % Normal RDW CV 12.6 LAB L100.1820 35.1-43.9 fl Normal RDW SD 41.5 LAB L100.1900 150-450 K/mm3 Normal PLT 174 LAB L100.2000 6.2-12.0 fl Normal MPV 10.2 LAB L100.2100 47-70 % Normal NEUT% 68.0 LAB L100.2200 19-41 % Normal LY% 19.2 LAB L100.2300 0-10 % High MONO% 10.8 LAB L100.2400 0-5 % Normal EO% 1.2 LAB L100.2500 0-1 % Normal BASO% 0.4 LAB L100.2550 0.0-0.9 % Normal IM GRAN % 0.400 Result Comment: IG% - Immature Granulocytes (promyelocytes, myelocytes and metamyelocytes) > 1% indicates that a LEFT SHIFT is Present. LAB L100.2620 2.0-7.7 X10 3/uL Normal Absolute Neut 3.5 LAB L100.2720 0.83-4.51 X10 3/ul Normal Absolute Lymph 0.98 Performed By: #### L100.0100 #### [facility] [address] [place], [place], [address] BASIC METABOLIC Collected: 08/24/2018 Status: F Source: QING PROFILE (BMP) 3:10 PM [facility] REPOSITORY TYPE CODE TESTS RESULT OUT OF RANGE REFERENCE UNITS LAB L501.0100 74-106 mg/dL High GLU 116 Result Comment: Fasting Glucose result from 100 to 125 mg/dL suggests IMPAIRED HOMEOSTASIS per A.D.A. criteria. Please note revised GLUCOSE reference range effective 2018. LAB L501.1000 7-18 mg/dL Normal BUN 18 LAB L501.1100 0.70-1.30 mg/dL High CREAT,SERUM 1.39 Result Comment: The validity of the calculated GFR AND GFRAA in patients over 70 years has not been determined. Clinical correlation is essential. LAB L501.1110 >60 mL/min Low EST GFR 57 Result Comment: Non- GFR Calc LAB L501.1115 >60 mL/min Normal EST GFR - AA 69 Result Comment: GFR Calc LAB L501.1255 ml/min Normal Estimated CRCL 77.46 LAB L501.1300 10-20 RATIO Normal BUN/CRE 12.9 LAB L501.2200 8.5-10 mg/dL Normal .1 CA 8.6 LAB L501.5300 136-14 mmol/L Normal 5 NA 138 LAB L501.5600 3.5-5. mmol/L Normal 1 K 3.7 LAB L501.5900 98-107 mmol/L Normal CL 104 LAB L501.6100 21.0-3 mmol/L Normal 2.0 CO2 27.0 LAB L501.6200 5-15 Normal GAP 7 Performed By: #### L500.2500 #### [facility] [address] [facility] [place], [address] CHEST PA AND LATERAL Observed: 08/24/2018 Status: F Source: SPARTA 3:01 PM [facility] REPOSITORY [facility] Imaging Services [address] [place] [address] Chest PA and Lateral MR#: [id number] Acct: [id number] Name: RUBÉN WILLOUGHBY Carol Ann Rep #: [id number] : 1965 M 52 From: Keyana Singer MD PCP: Jam Cortes MD Status: REG ER Study: Chest PA and Lateral Date of Exam: 08/24/18 Exam# [id number] Ordering Dr: Lucas Goodman MD STUDY: X-RAY CHEST REASON FOR EXAM: Male, 52 years old. Cough. TECHNIQUE: 2 views COMPARISON: Prior chest CT exam of June 04, 2018 FINDINGS: Minimal residual infiltrate of the left upper lobe compared to the prior chest CT exam of June 04, 2018 no additional new consolidation or focal atelectasis. The prior left pleural effusion has resolved. Normal size heart. Normal mediastinum and elba. Normal visualized pulmonary arteries. Normal visualized aortic arch and descending thoracic aorta. Normal visualized thoracic spine. Normal visualized ribs, clavicles, and shoulders. There is no demonstrated abnormality of the visualized soft tissue structures of the upper abdomen. RAD/Chest PA and Lateral IMPRESSION: Minimal residual infiltrate of the left upper lobe markedly improved from the large consolidation present on the prior exam. Left pleural effusion has resolved. Negative for new consolidation, focal atelectasis or a substantial pleural effusion. Electronically Signed: Keyana Singer MD at 15:52 EDT , Service support , CC: Jam Cortes MD; Lucas Goodman MD Construction Stonemason: Signed EMERGENCY DEPARTMENT Observed: 06/23/2018 Status: F Source: SPARTA SUMMARY 1:32 PM [facility] REPOSITORY [facility] Medical Records Department [address] [place] [address] Emergency Department Summary 06/23/18 1328 MR#: [id number] Acct: [id number] Name: RUBÉN WILLOUGHBY Rep #: [id number] : 1965 52 From: Topher Galicia MD PCP: Jam Cortes MD Status: REG ER - ER Visit Summary Date of Service: 06/23/18 Chief Complaint: Injury left index finger and right hand History of Present Illness: The patient is a 52 M who is right- hand dominant. Presents with injury to his left index finger and right hand. This occurred prior to arrival. He is on Xarelto for recently diagnosed pulmonary embolus. He denies any paresthesia, anesthesia buttocks. Immunization unknown. He has no other complaints. Physical Examination: There is a 1 cm laceration dorsal surface left index finger. The extensor in the side tendon is intact. There is no pain to palpation. The flexor digitorum superficialis and flexor digitorum profundus are intact. Sensations intact. Capillary refill is normal. There is no subungual hematoma noted. There is an irregularly-shaped flap laceration webspace between the right index finger and right long finger. The flexor digitorum superficialis and flexor digitorum profundus are intact. Sensations intact. Capillary refill is normal. Extensor commonest and extensor in the side tendon are intact. There is no subungual hematoma noted of any digits right hand. He has full active range of motion of all digits bilaterally. Test Results: None Emergency Department Course and Treatment: Update tetanus immunization. The laceration dorsal hand approximate well with no bleeding and some small based on prior studies suturing is not indicated. The laceration webspace between the right index and long finger was sutured. The wound was prepped draped sterile manner. The area was anesthetized 1% lidocaine. Wound was irrigated with 200 cc normal saline. Using 5-0 Ethilon simple interrupted sutures were placed. Treatment Plan: Appropriate wound care instructions and sutures out in 10 days Disposition: Discharge to home Impression: 1. 2.9 cm laceration right hand irregular and flap 2. Less than 1 cm laceration left index finger not sutured 3. High risk medication, Xarelto for recent diagnosed PE This note was generated with Saisei dictation software. It may contain incorrect words, spelling, and punctuation that were not noted in review of the chart prior to signing ED Disposition - Plan for ED Patient: Chief Complaint: Laceration Instructions: ED Laceration Hand, ED Laceration Small Superf No Sutr Referrals: Nathan Cortes MD [Primary Care Provider] - 10 Day for suture removal Additional Instructions: Clean laceration with peroxide and Q-tip 3 times a day then apply bacitracin ointment. Keep lacerations clean and dry for the next 48 hours. What to do if you have Problems For any increased pain, shortness of breath, bleeding, nausea or vomiting, chest pain, or any unexpected problems, contact your Primary Care Provider. Call [facility] ([phone]) or report to the closest Emergency Room. Call 911 if necessary. 06/23/18 1332 <Electronically signed by Topher Galicia MD> Date Topher Galicia MD Cosigner Signature (If Indicated): Date CC: Jam Cortes MD CBC W/DIFF, AUTOMATED Collected: 06/17/2018 Status: F Source: QING 10:56 AM [facility] REPOSITORY Order Comment: Order Date: 06/17/18 Order Info: 0184-1 - CBCD TYPE CODE TESTS RESULT OUT OF RANGE REFERENCE UNITS LAB L100.1000 4.4-11.0 K/mm3 Normal WBC 6.3 LAB L100.1200 4.6-6.2 M/mm3 Low RBC 4.42 LAB L100.1300 13.0-16.5 g/dl Normal HGB 13.6 LAB L100.1400 40-54 % Normal HCT 40.6 LAB L100.1500 80-94 fL Normal MCV 91.9 LAB L100.1600 27.0-32.0 pg Normal MCH 30.8 LAB L100.1700 32-36 g/gl Normal MCHC 33.5 LAB L100.1810 11.6-14.6 % Normal RDW CV 11.9 LAB L100.1820 35.1-43.9 fl Normal RDW SD 40.2 LAB L100.1900 150-450 K/mm3 Normal PLT 293 LAB L100.2000 6.2-12.0 fl Normal MPV 9.6 LAB L100.2100 47-70 % Normal NEUT% 55.1 LAB L100.2200 19-41 % Normal LY% 34.0 LAB L100.2300 0-10 % Normal MONO% 7.5 LAB L100.2400 0-5 % Normal EO% 2.1 LAB L100.2500 0-1 % Normal BASO% 0.8 LAB L100.2550 0.0-0.9 % Normal IM GRAN % 0.500 Result Comment: IG% - Immature Granulocytes (promyelocytes, myelocytes and metamyelocytes) > 1% indicates that a LEFT SHIFT is Present. LAB L100.2620 2.0-7.7 X10 3/uL Normal Absolute Neut 3.5 LAB L100.2720 0.83-4.51 X10 3/ul Normal Absolute Lymph 2.14 Performed By: #### L100.0100, L300.3900 #### [facility] [address] [place], [place], [id number] #### L4500.0100 #### [facility] (refer to report for specific site) refer to report for address and phone number PROTHROMBIN TIME W/INR Collected: 06/17/2018 Status: F Source: SPARTA 10:56 AM [facility] REPOSITORY Order Comment: Order Date: 06/17/18 Order Info: 6301-6 - PT TYPE CODE TESTS RESULT OUT OF RANGE REFERENCE UNITS LAB L300.4150 11.7-14.9 SECONDS High PROTIME 16.7 LAB L300.4200 Normal INR 1.4 Performed By: #### L100.0100, L300.3900 #### [facility] [place], [address] #### L4500.0100 #### [facility] (refer to report for specific site) refer to report for address and phone number LUPUS ANTICOAGULANT COMP Collected: 06/17/2018 Status: F Source: SPARTA 10:56 AM [facility] REPOSITORY Order Comment: Order Date: 06/17/18 Order Info: 0215-1 - LUPUS TYPE CODE TESTS RESULT OUT OF REFERENCE UNITS RANGE LAB L4500.0125 0.0-55.0 sec DILUTE PT (dPT) High 76.0 LAB L4500.0150 0.00-1.40 Ratio dPT Conf. Ratio Normal 1.19 LAB L4500.0200 0.0-23.0 sec THROMBIN TIME Normal 18.3 LAB L4500.0600 0.0-51.9 sec PTT-LA Normal 47.1 LAB L4500.1000 0.0-47.0 sec DRVVT High 124.6 LAB L4500.1025 0.0-47.0 sec dRVVT MIX High 69.2 LAB L4500.1050 0.8-1.2 ratio DRVVT CONFIRM High 2.3 LAB L4500.1300 . Interpretation Normal Comment: Result Comment: Results are consistent with the presence of a lupus anticoagulant. However, the dPT is markedly extended, as can be seen in patients receiving oral anticoagulant therapy (OAT). In general, OAT can reduce the accuracy of lupus anticoagulant testing and results obtain for patients receiving OAT should be interpreted with caution. NOTE: Only persistent lupus anticoagulants are thought to be of clinical significance. For this reason, repeat testing in 12 or more weeks after an initial positive result should be considered to confirm or refute the presence of a lupus anticoagulant, depending on clinical presentation. Results of lupus anticoagulant tests may be falsely positive in the presence of certain anticoagulant therapies. Performed By: #### L100.0100, L300.3900 #### [facility] [address] [facility] [place], [address] #### L4500.0100 #### [facility] (refer to report for specific site) refer to report for address and phone number PROTEIN S DEFIC. Collected: 06/17/2018 Status: F Source: SPARTA PROFILE 10:56 AM [facility] REPOSITORY Order Comment: Order Date: 06/17/18 Order Info: 0215-1 - LUPUS TYPE CODE TESTS RESULT OUT OF RANGE REFERENCE UNITS LAB L3100.7100 60-150 % Normal PROTEIN 82 S,TOTAL Result Comment: This test was developed and its performance characteristics determined by [facility]. It has not been cleared or approved by the Food and Drug Administration. LAB L3100.7200 57-157 % Normal PROTEIN S, FREE 138 Result Comment: This test was developed and its performance characteristics determined by [facility]. It has not been cleared or approved by the Food and Drug Administration. LAB L3100.7260 63-140 % High PROTEIN S, FUNC 162 Result Comment: An elevated protein S activity is of no known clinical significance. Protein S activity may be falsely increased (masking an abnormal, low result) in patients receiving direct Xa inhibitor (e.g., rivaroxaban, apixaban, edoxaban) or a direct thrombin inhibitor (e.g., dabigatran) anticoagulant treatment due to assay interference by these drugs. Performed By: #### L3100.7075, L3300.0500, L4500.5000 #### [facility] (refer to report for specific site) refer to report for address and phone number ANTITHROMBIN 3 FUNCTION Collected: 06/17/2018 Status: F Source: QING 10:56 AM [facility] REPOSITORY Order Comment: Order Date: 06/17/18 Order Info: 0215-1 - LUPUS TYPE CODE TESTS RESULT OUT OF RANGE REFERENCE UNITS LAB L3300.0500 75-135 % Normal AT3 FUNCTION 107 Result Comment: Direct Xa inhibitor anticoagulants such as rivaroxaban, apixaban and edoxaban will lead to spuriously elevated antithrombin activity levels possibly masking a deficiency. Performed at: BN - [facility] [address] [id number] Primary Mill Roller: Sammy Jackson MD, Phone: [phone] Performed at: - [facility] [address] [place], [place] [id number] Primary [employer] Roller: Artem Vital MD, Phone: [phone] Performed By: #### L3100.7075, L3300.0500, L4500.5000 #### [facility] (refer to report for specific site) refer to report for address and phone number FACT V LEIDEN Collected: 06/17/2018 Status: F Source: QING MUTATION 10:56 AM [facility] REPOSITORY Order Comment: Order Date: 06/17/18 Order Info: 0215-1 - LUPUS TYPE CODE TESTS RESULT OUT OF RANGE REFERENCE UNITS LAB L4500.5100 . Normal FACTOR V Comment LEIDEN Result Comment: Result: Negative (no mutation found) Factor V Leiden is a specific mutation (R506Q) in the factor V gene that is associated with an increased risk of venous thrombosis. Factor V Leiden is more resistant to inactivation by activated protein C. As a result, factor V persists in the circulation leading to a mild hyper- coagulable state. The Leiden mutation accounts for 90% - 95% of APC resistance. Factor V Leiden has been reported in patients with deep vein thrombosis, pulmonary embolus, central retinal vein occlusion, cerebral sinus thrombosis and hepatic vein thrombosis. Other risk factors to be considered in the workup for venous thrombosis include the [id number] mutation in the factor II (prothrombin) gene, protein S and C deficiency, and antithrombin deficiencies. Anticardiolipin antibody and lupus anticoagulant analysis may be appropriate for certain patients, as well as homocysteine levels. Contact your local [facility] for information on how to order additional testing if desired. Genetic counselors are available for health care providers to discuss results at [phone] ([id number]). Methodology: DNA analysis of the Factor V gene was performed by allele- specific PCR. The diagnostic sensitivity and specificity is >99% for both. Molecular-based testing is highly accurate, but as in any laboratory test, diagnostic errors may occur. All test results must be combined with clinical information for the most accurate interpretation. This test was developed and its performance characteristics determined by [facility]. It has not been cleared or approved by the Food and Drug Administration. References: Milton Maier (1995). Clin Lab Med 16:169-186. Gene Danielle, PhD, FACMG Caroline Farah, PhD, FACMG Kaci Luke MJosselynSJosselyn, PhD, FACMG Concetta López, PhD, FACMG Eve Lindsey, PhD, FACMG Filiberto Mccabe PhD, FACMG Performed By: #### L3100.7075, L3300.0500, L4500.5000 #### [facility] (refer to report for specific site) refer to report for address and phone number 12 LEAD ELECTROCARDIOGRAM Observed: 06/09/2018 Status: F Source: SPARTA 3:42 PM [facility] REPOSITORY [facility] Cardiovascular Services [address] [place] [id number] 12 Lead EKG 06/04/18 1313 MR#: [id number] Acct: [id number] Name: RUBÉN WILLOUGHBY Rep #: [id number] : 1965 52 From: Ihsan Morales MD Attending Dr: Filiberto Bazan MD Status: DIS IN Ordering Dr: Silverio Helton MD Date: 06/04/18 Location: [facility] Sex: M C Admitted: 06/04/18 Test Reason : SOB Blood Pressure : / mmHG Vent. Rate : 085 BPM Atrial Rate : 085 BPM P-R Int : 148 ms QRS Dur : 112 ms QT Int : 374 ms P-R-T Axes : 041 032 042 degrees QTc Int : 445 ms Normal sinus rhythm Normal ECG Confirmed by IHSAN MORALES MD ([id number]), editor farm journal KACI VIEYRA (55) on 06/09/2018 3:41:47 PM Referred By: YOLANDA Confirmed By:IHSAN MORALES MD 06/09/18 1541 Date Ihsan Morales MD CC: Jam Cortes MD; Filiberto Bazan MD; Silverio Helton Signed VENOUS DUPLEX LOWER Observed: 06/07/2018 Status: F Source: SPARTA EXTREMITY 2:41 PM [facility] REPOSITORY [facility] Cardiovascular Services [address] [place] [address] Venous Duplex - [facility] Extrem 06/05/18 0805 MR#: [id number] Acct: [id number] Name: RUBÉN WILLOUGHBY Rep #: [id number] : 1965 52 From: Pola Hill MD Attending Dr: Filiberto Bazan MD Status: DIS IN Ordering Dr: Filiberto Bazan MD Date: 06/04/18 Location: [facility] Sex: M C Admitted: 06/04/18 Reason For Study: PE RIGHT LEFT GSV is normal. GSV is normal. CFV is compressible, spontaneous, phasic, CFV is compressible, spontaneous, phasic, competent and demonstrates normal competent, and demonstrates normal augmentation. augmentation. FV is compressible, spontaneous, phasic, FV is compressible, spontaneous, phasic, competent and demonstrates normal competent and demonstrates normal augmentation. augmentation. POP V is compressible, spontaneous, phasic, Acute deep vein thrombosis is noted in the competent and demonstrates normal left popliteal vein. augmentation. PTV is compressible. T/P Trunk is compressible. Acute deep vein thrombosis is noted in the PTV is compressible. left peroneal vein. RT PerV is compressible. Acute deep vein thrombosis noted in T/P Procedure trunk. Exam performed portable in patient room. A preliminary report was called and/or faxed to Pt nurse Dorsey. Interpretation Summary Acute deep vein thrombosis is noted in the left popliteal vein. Acute deep vein thrombosis is noted in the left tibio-peroneal trunk. Acute deep vein thrombosis is noted in the left peroneal vein. The remainder of the left lower extremity deep venous system is patent and compressible. The left common femoral vein and femoral vein are competent. Deep veins of the right lower extremity are patent and compressible segmentally. There is no evidence of right lower extremity deep vein thrombosis. Valvular competence appears intact within the proximal deep venous system on the right . The greater saphenous veins appear bilaterally patent and compressible segmentally. Ordering Physician: Filiberto Bazan Referring Physician: Jam Cortes MD Performed By: Victorina Clark RVT 06/07/18 1440 Date Pola Hill MD CC: Jam Cortes MD; Filiberto Bazan MD Date Dictated: 06/05/18 0805 Date Transcribed: 06/07/18 1440 Construction Stonemason: Signed DISCHARGE SUMMARY Observed: 06/06/2018 Status: F Source: QING 11:22 AM [facility] REPOSITORY [facility] Medical Records Department [address] [place] [address] Discharge Summary 06/06/18 1031 MR#: [id number] Acct: [id number] Name: RUBÉN WILLOUGHBY Rep #: [id number] : 1965 52 From: Filiberto Bazan MD PCP: Jam Cortes MD Status: ADM IN Location: [facility] [id number] Discharge Date and Diagnosis - Problem List Patient Problems: Active and Suspected Problems Hemoptysis (Acute) Back pain (Acute) Chest pain (Acute) Date of Admission: 06/04/18 Date of Discharge: 06/06/18 - Primary Discharge Diagnosis Active and Suspected Problems Hemoptysis (Acute) Back pain (Acute) Chest pain (Acute) Bilateral PE Committee acquired pneumonia with pleural effusion. Hospital Course and Treatment Imaging Results: Impressions Chest CTA 06/04/18 13:08 IMPRESSION: Bilateral pulmonary embolism. No arterial dissection. Left lower lobe infiltrate. Left pleural effusion with basilar atelectasis. Peripheral hypoattenuated hepatic nodule. N.B. : The above information has been verbally conveyed by Paxton Chris DO to Dr. Silverio Helton, Referring Physician, on 06/04/2018 14:56:21 (ET). Electronically Signed: Paxton Chris DO at 14:52 EDT Tel [phone], Service support , N.B. : The above information has been verbally conveyed by Paxton Chris DO to Dr. Silverio Helton, Referring Physician, on 06/04/2018 14:56:21 (ET). 06/05/18 14:50 Urine, Clean Catch Streptococcus pneumoniae Antigen (M - Final 06/05/18 14:50 Urine, Clean Catch Legionella Antigen - Final None Operations: None Procedures: None Summary of Care Provided: The patient is a 52 year old M with a significant history of previous provoked DVT of his left leg after meniscus surgery in the left leg who came to the emergency department because of hemoptysis after a return flight from [place] and was found to have acute bilateral PE with left lower lobe infiltrates and pleural effusion On CTPE. Echocardiogram was unremarkable. The patient was started on heparin infusion protocol at the ED which was initially continued inpatient. Patient was later switched to Xarelto. Patient was started on IV antibiotics for community-acquired pneumonia. While inpatient patient's did not have any more hemoptysis. Patient had a pain in his left scapula which was managed inpatient with p.o. narcotics. Patient noted a considerable improvement in his pain. With clinical improvement in his symptoms a shared decision was made to discharge patient home on Levaquin p.o. and Xarelto. His first pack of Xarelto will be delivered from our pharmacy before patient goes home. Likewise his Levaquin will be delivered to him before he goes home. Patient was instructed to return to the ED if he has uncontrolled pain, fever, chills or anything out of the ordinary. Patient was instructed to follow up with PCP. And to discuss with PCP about a possible follow-up with hematology since this is his second DVT. On the day of discharge a comprehensive physical examination was done. Heart sounds S1, S2 present with no murmur, gallop or rubs. His lungs were clear to auscultation. His belly was nontender and nondistended and bowel sounds were present. He had no edema or cyanosis in his extremity. And is his pulses were normal bilaterally. [] Discharge Activity: Return to Normal Activity Call your doctor if you observe: Fever of 101 or Higher, Shortness of breath, Chest pain, - - Coughing blood Home Medications: Medications to take at Discharge Rivaroxaban [Xarelto] 15 mg PO BIDCM 21 Days #42 tab 06/05/18 levoFLOXacin tablet [Levaquin tablet] 750 mg PO DAILY #4 tab 06/06/18 Following Prescrptions Were Given to Patient: levoFLOXacin tablet [Levaquin tablet] 750 mg PO DAILY #4 tab Rivaroxaban [Xarelto] 15 mg PO BIDCM 21 Days #42 tab Primary Care Physician: Nathan Cortes MD [Primary Care Provider] - Please follow up with your Primary Care Physician in: 5-7 days Additional Instructions: Take tylenol for pain Disposition: Home Minutes spent on discharge:: 25 Patient Condition:: Good Medical Necessity - Tobacco Use Smoking Status: Current some day smoker Tobacco Use: Cigars Meaningful Use Info Meaningful Use Diagnoses (Choose all that apply): VTE - VTE Anticoag overlap given w/in hospital stay or rx'd at dc?: Yes Pt receive overlap for 5 days?: No Reason overlap not ordered, prescribed, or given for 5 days: Treatment Not Indicated Code Visit Inpatient E AND M: [id number] Disch Hosp 06/06/18 1122 <Electronically signed by Filiberto Bazan MD> Date Filiberto Bazan MD Cosigner Signature (if applicable): Date CC: Jam Cortes MD; Filiberto Bazan MD Signed DISCHARGE INSTRUCTION Observed: 06/06/2018 Status: F Source: QING 10:31 AM [facility] REPOSITORY [facility] Medical Records Department [address] [place] [address] Instructions for Home/Discharge Instructions 06/06/18 1028 MR#: [id number] Acct: [id number] Name: RUBÉN WILLOUGHBY Rep #: [id number] : 1965 52 From: Filiberto Bazan MD PCP: Jam Cortes MD Status: ADM IN - Discharge Diagnoses Current Active Problems: Current Active and Chronic Problems Hemoptysis (Acute) Back pain (Acute) Chest pain (Acute) You will use the following diet at home:: Regular Discharge Activity: Return to Normal Activity Call your doctor if you observe: Fever of 101 or Higher, Shortness of breath, Chest pain, - - Coughing blood Allergies/Adverse Reactions: Allergies No Known Allergies Allergy (Verified 06/04/18 13:01) Medications to take at Discharge Rivaroxaban [Xarelto] 15 mg PO BIDCM 21 Days #42 tab 06/05/18 levoFLOXacin tablet [Levaquin tablet] 750 mg PO DAILY #4 tab 06/06/18 The following prescriptions were given: levoFLOXacin tablet [Levaquin tablet] 750 mg PO DAILY #4 tab Rivaroxaban [Xarelto] 15 mg PO BIDCM 21 Days #42 tab Primary Care Physician: Nathan Cortes MD [Primary Care Provider] - Please follow up with your Primary Care Physician in: 5-7 days Test Results: Test results from this visit will be discussed in further detail at your follow-up appointment, if applicable. 06/06/18 1031 <Electronically signed by Filiberto Bazan MD> Date Filiberto Bazan MD CC: Jam Cortes MD ECHOCARDIOGRAM COMPLETE Observed: 06/05/2018 Status: F Source: SPARTA 4:28 PM [facility] REPOSITORY [facility] Cardiovascular [place] [address] Echo Complete 06/05/18 1447 MR#: [id number] Acct: [id number] Name: RUBÉN WILLOUGHBY Rep #: [id number] : 1965 52 From: Odilon Suh MD Attending Dr: Mary Ellen Sanz MD Status: ADM IN Ordering Dr: Mary Ellen Sanz MD Date: 06/05/18 Location: [facility] Sex: M C Admitted: 06/04/18 Version 2 Reason For Study: EMBOLI Procedure This was a 2D Doppler, Color Flow transthoracic echocardiogram. Exam performed portable in patient room. Left Ventricle Normal size and thickness. The estimated ejection fraction is 65-70 %. Stage 1 diastolic dysfunction. No regional wall motion abnormalities noted. Right Ventricle Normal RV size. Probable apical RV strain patter, possibly consistent acute pulmonary embolism. Atria The left atrium is mildly enlarged. Normal right atrium. Normal atrial septum. Bubble contrast study negative for right to left interatrial shunt. Mitral Valve The mitral valve is structurally normal. No prolapse or stenosis seen. Trivial mitral valve insufficiency. Tricuspid Valve Normal tricuspid valve. Trivial tricuspid valve insufficiency. Right ventricular systolic pressure estimated to be 31 mmHg. Aortic Valve Trisinus/trileaflet aortic valve. Normal aortic valve. Pulmonic Valve Normal pulmonic valve. Great Vessels Normal aortic root. Normal arch. Normal inferior vena cava. Inferior vena cava collapse with sniff. Pericardium/Pleural No pericardial effusion. Medication Used existing IV in left antecubital space. Performed a rapid injection of agitated mix of 9 cc saline and 1cc air to assess for atrial septal defect. MMode/2D Measurements AND Calculations LVIDd: 4.9 cm IVSd: 0.97 cm Ao root diam: 3.4 cm LVIDs: 3.0 cm LVPWd: 0.95 cm LA dimension: 3.5 cm RVDd: 3.2 cm FS: 39.0 % LAV(MOD-bp): 73.1 ml LA A4 area: 22.3 cm2 RA A4 area: 16.6 cm2 LAV(MOD-bp) Indexed: 31.1 ml/m2 LAV(MOD-sp2): 74.9 ml LAV(MOD-sp4): 72.5 ml Doppler Measurements AND Calculations MV E max wilber: 98.7 cm/sec Lat Peak E' Wilber: 12.5 cm/sec Med Peak E' Wilber: 12.0 cm/sec MV A max wilber: 82.4 cm/sec E/E' lat: 7.9 E/E' med: 8.2 MV E/A: 1.2 Ao V2 max: 176.1 cm/sec LV V1 max: 148.5 cm/sec PA V2 max: 138.7 cm/sec Ao max P.4 mmHg LV V1 max P.8 mmHg TR max wilber: 254.1 cm/sec TR max P.8 mmHg Interpretation Summary The estimated ejection fraction is 65-70 %. Probable apical RV strain patter, possibly consistent acute pulmonary embolism. The left atrium is mildly enlarged. Stage 1 diastolic dysfunction. Right ventricular systolic pressure estimated to be 31 mmHg. Bubble contrast study negative for right to left interatrial shunt. There is no comparison study available. Ordering Physician: Mary Ellen Sanz Referring Physician: Jam Cortes MD Performed By: Jordyn Oliveros, ALES[place], RVT 06/05/18 1627 Date Odilon Suh MD CC: Mary Ellen Sanz MD; Jam Cortes MD Date Dictated: 06/05/18 1447 Date Transcribed: 06/05/18 1623 Construction Stonemason: Signed Observed: 06/05/2018 Status: F Source: [place] LEGIONELLA ANTIGEN 2:50 PM [facility] URINE REPOSITORY Legionella, UR Legionella Antigen result interpretation: Negative Presumptive negative for Legionella pneumophila serogroup 1 antigen in urine, suggesting no recent or current infection. Legionella Ag, Urine Negative (See interpretation below) Performed By: #### M300.4500 #### [facility] [address] [place] [address]. [place], [place], [address] STREP Observed: 06/05/2018 Status: F Source: [place] PNEUMONIAE ANTIG(UR,CSF) 2:50 PM [facility] REPOSITORY S pneumo Ag URINE INTERPRETATION Negative Urine Presumptive negative for pneumococcal pneumonia, suggesting no current or recent pneumococcal infection. Infection due to S pneumoniae cannot be ruled out since the antigen present in the sample may be below the detection limit of the test. Strep pneumo Test Negative URINE (See interpretation below) Performed By: #### M300.4600 #### [facility] [address] [place] [address]. [place], [address] CBC-COMPLETE BLOOD CNT Collected: 06/05/2018 Status: F Source: [place] NO DIFF 7:30 AM [facility] HOSPITAL REPOSITORY TYPE CODE TESTS RESULT OUT OF RANGE REFERENCE UNITS LAB L100.1000 4.4-11.0 K/mm3 Normal WBC 8.3 LAB L100.1200 4.6-6.2 M/mm3 Low RBC 4.08 LAB L100.1300 13.0-16.5 g/dl Normal HGB 13.1 LAB L100.1400 40-54 % Low HCT 37.7 LAB L100.1500 80-94 fL Normal MCV 92.4 LAB L100.1600 27.0-32.0 pg High MCH 32.1 LAB L100.1700 32-36 g/gl Normal MCHC 34.7 LAB L100.1810 11.6-14.6 % Normal RDW CV 11.6 LAB L100.1820 35.1-43.9 fl Normal RDW SD 39.1 LAB L100.1900 150-450 K/mm3 Normal PLT 231 LAB L100.2000 6.2-12.0 fl Normal MPV 9.9 Performed By: #### L100.0500 #### [facility] [address] [place], [address] BASIC METABOLIC Collected: 06/05/2018 Status: F Source: [place] PROFILE (BMP) 7:30 AM [facility] REPOSITORY TYPE CODE TESTS RESULT OUT OF RANGE REFERENCE UNITS LAB L501.0100 74-106 mg/dL High GLU 149 Result Comment: Fasting Glucose result greater than or equal to 126 mg/dL suggests DIABETES MELLITUS per A.D.A. criteria. Please note revised GLUCOSE reference range effective 2018. LAB L501.1000 7-18 mg/dL Normal BUN 16 LAB L501.1100 0.70-1.30 mg/dL Normal CREAT,SERUM 0.96 Result Comment: The validity of the calculated GFR AND GFRAA in patients over 70 years has not been determined. Clinical correlation is essential. LAB L501.1110 >60 mL/min Normal EST GFR 86 Result Comment: Non- GFR Calc LAB L501.1115 >60 mL/min Normal EST GFR - AA 105 Result Comment: GFR Calc LAB L501.1255 ml/min Normal Estimated CRCL 112.15 LAB L501.1300 10-20 RATIO BUN/CRE Normal 16.6 LAB L501.2200 8.5-10 mg/dL .1 CA Normal 8.6 LAB L501.5300 136-14 mmol/L 5 NA Normal 138 LAB L501.5600 3.5-5. mmol/L 1 K Normal 4.6 LAB L501.5900 98-107 mmol/L CL Normal 103 LAB L501.6100 21.0-3 mmol/L 2.0 CO2 Normal 27.0 LAB L501.6200 5-15 GAP Normal 8 Performed By: #### L500.2500 #### [facility] [address] [place], [address] PARTIAL THROMBOPLAST Collected: 06/05/2018 Status: F Source: QING TIME 7:30 AM [facility] REPOSITORY TYPE CODE TESTS RESULT OUT OF REFERENCE UNITS RANGE LAB L300.4310 24.1-36.2 Seconds High PTT 44.5 Performed By: #### L300.4310 #### [facility] [address] [place] [address], [address] PARTIAL THROMBOPLAST Collected: 06/05/2018 Status: F Source: QING TIME 12:25 AM [facility] REPOSITORY TYPE CODE TESTS RESULT OUT OF REFERENCE UNITS RANGE LAB L300.4310 24.1-36.2 Seconds High PTT 48.2 Performed By: #### L300.4310 #### [facility] [place], [address] PROTHROMBIN TIME W/INR Collected: 06/04/2018 Status: F Source: QING 4:55 PM [facility] REPOSITORY TYPE CODE TESTS RESULT OUT OF RANGE REFERENCE UNITS LAB L300.4150 11.7-14.9 SECONDS Normal PROTIME 14.6 LAB L300.4200 Normal INR 1.1 Performed By: #### L300.3900, L300.4310 #### [facility] [place], [address] PARTIAL THROMBOPLAST Collected: 06/04/2018 Status: F Source: QING TIME 4:55 PM [facility] REPOSITORY TYPE CODE TESTS RESULT OUT OF REFERENCE UNITS RANGE LAB L300.4310 24.1-36.2 Seconds High PTT 85.9 Performed By: #### L300.3900, L300.4310 #### [facility] [address] [place], [address] EMERGENCY DEPARTMENT Observed: 06/04/2018 Status: F Source: SPARTA SUMMARY 4:40 PM [facility] REPOSITORY [facility] Medical Records Department [address] [place] [address] Emergency Department Summary 06/04/18 1528 MR#: [id number] Acct: [id number] Name: RUBÉN WILLOUGHBY Rep #: [id number] : 1965 52 From: Silverio Helton MD PCP: Jam Cortes MD Status: ADM IN - ER Visit Summary Date of Service: 06/04/18 Chief Complaint: Chest pain and hemoptysis History of Present Illness: The patient is a 52 M presenting for evaluation secondary chest pain or hemoptysis. Patient states that over the course of the last 3-4 days he has been having left posterior chest discomfort is worse with breathing. He states that he went to a chiropractor did not seem to alleviate this. Patient reports that today he has started to have episodes of hemoptysis. This is causing him to feel somewhat short of breath. Patient denies any prior similar episodes in the past, does have a history of DVT 2 years ago that was provoked by surgery, and also has a recent history of traveling to and from [place] on an airplane. Review of systems otherwise negative. Physical Examination: Vital signs are within normal limits, patient is afebrile. General: Patient is well-nourished well-developed and in no acute distress. Head: Normocephalic, atraumatic Eyes: Pupils equal round and reactive bilaterally, extra occular motion intact bialterally ENT: Moist mucous membranes Neck: Supple, no lymphadenopathy, no JVD, no meningismus CVS: Heart regular rate and rhythm, no murmurs, rubs or gallops, radial pulses 2+ bilaterally Resp: Respirations nondistressed, lung sounds clear bilaterally Abdomen: Soft, nontender, nondistended, no palpable masses, normal bowel sounds Back: Nontender Extremities: Nontender, atraumatic, active full range of motion, no peripheral edema Skin: warm, no rashes, no petechia Neuro: Alert and oriented x 4, CN 2-12 intact, no lateralizing neurological defecits Psyc: Normal affect Test Results: EKG shows sinus rhythm of [address] segments normal T waves. CBC chemistry troponin unremarkable. CT angiogram of the chest shows bilateral PEs with infiltrate in the left lower lobe Emergency Department Course and Treatment: Patient presented secondary to chest pain and hemoptysis. He has every risk factor in the book for having a PE, so CT angiogram was performed and showed evidence of PE. Given the patient's hemoptysis I do believe that he requires observation while he started on anticoagulation as he does run the risk of having massive hemoptysis. He was started on a heparin bolus and drip and will be admitted to PCU. Disposition: Admission Impression: 1. Bilateral pulmonary emboli This note was generated with Saisei dictation software. It may contain incorrect words, spelling, and punctuation that were not noted in review of the chart prior to signing ED Disposition - Plan for ED Patient: Chief Complaint: Shortness of Breath Referrals: Nathan Cortes MD [Primary Care Provider] - What to do if you have Problems For any increased pain, shortness of breath, bleeding, nausea or vomiting, chest pain, or any unexpected problems, contact your Primary Care Provider. Call [facility] ([phone]) or report to the closest Emergency Room. Call 911 if necessary. 06/04/18 1640 <Electronically signed by Silverio Helton MD> Date Silverio Helton MD Cosigner Signature (If Indicated): Date CC: Jam Cortes MD HISTORY AND PHYSICAL Observed: 06/04/2018 Status: F Source: QING EXAM 4:31 PM [facility] REPOSITORY [facility] Medical Records Department [address] [place] [address] History and Physical 06/04/18 1551 MR#: [id number] Acct: [id number] Name: RUBÉN WILLOUGHBY Rep #: [id number] : 1965 52 From: Filiberto Bazan MD PCP: Jam Cortes MD Status: ADM IN Y Location: [facility] [id number] ADDENDUM by Filiberto Bazan MD on 06/04/18 at 1630 Code Visit Please disregard previous code for visit charges. 06/04/18 1631 <Electronically signed by Filiberto Bazan MD> Date Filiberto Bazan MD cc: Jam Cortes MD; Filiberto Bazan MD * Signed ADDENDUM by Filiberto Bazan MD on 06/04/18 at 1629 Code Visit OBSV Shirley AND M: [id number] Initial observation care L2 06/04/18 1629 <Electronically signed by Filiberto Bazan MD> Date Filiberto Bazan MD cc: Jam Cortes MD; Filiberto Bazan MD * Signed Problem List (1) Hemoptysis Status: Acute (2) Back pain Status: Acute Qualifiers: Back pain location: thoracic back pain Chronicity: acute Back pain laterality: left Qualified Code(s): M54.6 - Pain in thoracic spine History of Present Illness Date of Admission: 06/04/18 The patient is a 52 year old M with a significant history of a previous DVT in his left leg after meniscal surgery in the same leg; who presents to the ED because of hemoptysis this morning. Patient returned from [place] about 10 days ago and noted that 3 days prior to his admission he had excruciating pain at the left side of his chest. At about the same time he had diffused body pain and chills which has since disappeared. Also this morning patient noted excruciating pain on the left side of his back proximal to his scapula. His back pain is aggravated with taking a breath. Because of the symptoms above the patient proceeded to the ED where a CT scan showed a bilateral PE [] Past Medical History Allergies No Known Allergies Allergy (Verified 06/04/18 13:01) Home Medications: Ambulatory Orders Medication Instructions Recorded NK [NK] 06/04/18 Surgical History: - - Rotator cough repair; left meniscus removal. Smoking Status: Current some day smoker Tobacco Use: Cigars Alcohol: Occasional - *Family History Paternal History Items: Cancer - Prostate Sibling History Items: Cancer, Hypertension Review of Systems HEENT: Denies: Head Aches, Sinus Congestion, Sinus Drainage Gastrointestinal: Denies: Abdominal Pain, Nausea, Vomiting Genitourinary: Denies: Dysuria Musculoskeletal: Reports: - Skin: Denies: Rash, Wounds Neurological: Denies: Numbness, Tingling, Focal weakness Psychiatric: Denies: Anxiety, Depression, Homicidal Ideations, Suicidal Ideations Hematologic/ Lymphatic: Denies: Easy Bruising, Easy Bleeding VTE Information - Inpt Only VTE Present on Admission: Yes VTE Mechan Device Prophylaxis: None VTE Pharm Prophylaxis ordered?: No Reason prophylaxis not ordered:: Treatment Not Indicated - On treatment for PE Patient Problems: Active and Suspected Problems Hemoptysis (Acute) Back pain (Acute) Chest pain (Acute) - Physical Exam General: Alert HEENT: Atraumatic Oral: Moist Mucosa Neck: Supple, No JVD, Negative Carotid Bruits Lungs: Clear to auscultation, Normal air movement Cardiovascular: Regular rate, No murmurs Abdomen: Bowel Sounds Present, Soft, Non Tender Extremities: No edema, Capillary Refill Less than 3 Seconds Musculoskeletal: No Tenderness to Palpation of Joints or Extremities Psych/Mental Status: Normal Affect, Appropriate Vital Signs Temp Pulse Resp BP Pulse Ox 97.3 F L 78 20 H 125/85 H 97 06/04/18 12:58 06/04/18 15:00 06/04/18 15:00 06/04/18 15:00 06/04/18 15:00 Assessment/Plan All Active Problems Hemoptysis (Acute) Back pain (Acute) Chest pain (Acute) 1. Acute Bilateral PE His chest pain and back pain is likely due to the bilateral PE confirmed by radiography. The patient was started on heparin bolus and infusion protocol. Oral anticoagulation was not started because of hemoptysis which may be difficult to resolve with oral anticoagulation. He is hemodynamically stable and chest CT did not show any right ventricular strain. We will not do echocardiogram at this time. We will order bilateral Doppler to investigate whether he had DVT leading to his PE. Morphine and oxycodone as needed for pain. 2. Left lower infiltrates Likely sequela of PE. Incentive spirometer. 3. Left pleural effusion Likely sequela of PE will treat PE as above. 4.DVT prophylaxis Not a candidate since he is already being treated for PE. Code Visit Inpatient E AND M: 99379 Subs Hosp L2 06/04/18 1617 <Electronically signed by Filiberto Bazan MD> Date Filiberto Bazan MD Cosigner Signature: Date (if applicable) CC: Jam Cortes MD; Filiberto Bazan MD Signed CBC W/DIFF, AUTOMATED Collected: 06/04/2018 Status: F Source: QING 1:25 PM [facility] REPOSITORY TYPE CODE TESTS RESULT OUT OF RANGE REFERENCE UNITS LAB L100.1000 4.4-11.0 K/mm3 Normal WBC 8.4 LAB L100.1200 4.6-6.2 M/mm3 Low RBC 4.52 LAB L100.1300 13.0-16.5 g/dl Normal HGB 14.0 LAB L100.1400 40-54 % Normal HCT 41.3 LAB L100.1500 80-94 fL Normal MCV 91.4 LAB L100.1600 27.0-32.0 pg Normal MCH 31.0 LAB L100.1700 32-36 g/gl Normal MCHC 33.9 LAB L100.1810 11.6-14.6 % Normal RDW CV 12.1 LAB L100.1820 35.1-43.9 fl Normal RDW SD 40.4 LAB L100.1900 150-450 K/mm3 Normal PLT 220 LAB L100.2000 6.2-12.0 fl Normal MPV 9.7 LAB L100.2100 47-70 % Normal NEUT% 66.4 LAB L100.2200 19-41 % Normal LY% 19.1 LAB L100.2300 0-10 % High MONO% 12.3 LAB L100.2400 0-5 % Normal EO% 1.8 LAB L100.2500 0-1 % Normal BASO% 0.2 LAB L100.2550 0.0-0.9 % Normal IM GRAN % 0.200 Result Comment: IG% - Immature Granulocytes (promyelocytes, myelocytes and metamyelocytes) > 1% indicates that a LEFT SHIFT is Present. LAB L100.2620 2.0-7.7 X10 3/uL Normal Absolute Neut 5.6 LAB L100.2720 0.83-4.51 X10 3/ul Normal Absolute Lymph 1.61 Performed By: #### L100.0100 #### [facility] [address] [place], [address] BASIC METABOLIC Collected: 06/04/2018 Status: F Source: SPARTA PROFILE ([facility]) 1:25 PM [facility] REPOSITORY TYPE CODE TESTS RESULT OUT OF RANGE REFERENCE UNITS LAB L501.0100 74-106 mg/dL Normal GLU 101 Result Comment: Fasting Glucose result from 100 to 125 mg/dL suggests IMPAIRED HOMEOSTASIS per A.D.A. criteria. Please note revised GLUCOSE reference range effective 2018. LAB L501.1000 7-18 mg/dL Normal BUN 14 LAB L501.1100 0.70-1.30 mg/dL Normal CREAT,SERUM 1.18 Result Comment: The validity of the calculated GFR AND GFRAA in patients over 70 years has not been determined. Clinical correlation is essential. LAB L501.1110 >60 mL/min Normal EST GFR 69 Result Comment: Non- GFR Calc LAB L501.1115 >60 mL/min Normal EST GFR - AA 83 Result Comment: GFR Calc LAB L501.1255 ml/min Normal Estimated CRCL 91.24 LAB L501.1300 10-20 RATIO Normal BUN/CRE 11.9 LAB L501.2200 8.5-10 mg/dL Normal .1 CA 8.5 LAB L501.5300 136-14 mmol/L Normal 5 NA 140 LAB L501.5600 3.5-5. mmol/L Normal 1 K 4.0 LAB L501.5900 98-107 mmol/L Normal CL 105 LAB L501.6100 21.0-3 mmol/L Normal 2.0 CO2 27.0 LAB L501.6200 5-15 Normal GAP 8 Performed By: #### L500.2500, L501.4010 #### [facility] [address] [place], [address] TROPONIN-I Collected: 06/04/2018 Status: F Source: SPARTA 1:25 PM [facility] REPOSITORY TYPE CODE TESTS RESULT OUT OF RANGE REFERENCE UNITS LAB L501.4010 <0.045 ng/mL Normal < 0.015 TROPONIN-I Result Comment: TROPONIN-I EXPECTED VALUES <0.045 Negative 0.045 - 0.590 Consistent with Cardiac Damage > OR = 0.600 Critical Value Not every elevated troponin is indicative of GA. These values should be used with clinical judgement in examining the patient's clinical picture for diagnosis. To establish a diagnosis of GA versus myocardial injury, there must be a demonstrated rise and/or fall in the troponin values, in addition to ischemic symptoms, EKG changes, new regional wall motion abnormality, and/or angiographical evidence. PLEASE NOTE: REFERENCE RANGES EDITED 18 Performed By: #### L500.2500, L501.4010 #### [facility] [address] [place], [address] CTA CHEST W/WO Observed: 06/04/2018 Status: F Source: SPARTA CONTRAST 1:09 PM [facility] REPOSITORY [facility] Services [address] [place] [address] CTA Chest W/WO Contrast MR#: [id number] Acct: [id number] Name: RUBÉN WILLOUGHBY Carol Ann Rep #: [id number] : 1965 M 52 From: Paxton Chris DO PCP: Jam Cortes MD Status: REG ER Study: CTA Chest W/WO Contrast Date of Exam: 06/04/18 Exam# [id number] Ordering Dr: Silverio Helton MD STUDY: CTA CHEST REASON FOR EXAM: Male, 52 years old. Hemoptysis, cough RADIATION DOSAGE (If Supplied By Facility): CTDIvol = ( 15.98 ) mGy, DLP = ( 713.45 ) mGycm TECHNIQUE: The examination was performed with the intravenous administration of 100ML ml of Isovue 370 contrast material. Post-processing of the angiographic images was performed, with multiplanar reformation and 3D reconstruction. Individualized dose optimization techniques were used for this CT. COMPARISON: None. FINDINGS: Normal enhancement of the main pulmonary artery and right and left pulmonary arteries. There are filling defects of the bilateral peripheral pulmonary arteries. There is no demonstrated pulmonary embolism. Normal thoracic aorta and visualized great vessels. There is no demonstrated aortic dissection. Normal heart and pericardium. Normal mediastinum. Normal hilar regions. Normal visualized trachea and bronchi. The lungs are well expanded. Left lower lobe infiltrate. Mild left pleural effusion with basilar atelectasis. Normal chest wall structures. Normal osseous structures. Hypoattenuated peripheral 1 cm right hepatic nodule. CT/CTA Chest W/WO Contrast IMPRESSION: Bilateral pulmonary embolism. No arterial dissection. Left lower lobe infiltrate. Left pleural effusion with basilar atelectasis. Peripheral hypoattenuated hepatic nodule. N.B. : The above information has been verbally conveyed by Paxton Chris DO to Dr. Silverio Helton, Referring Physician, on 06/04/2018 14:56:21 (ET). Electronically Signed: Paxton Chris DO at 14:52 EDT Tel [phone], Service support , N.B. : The above information has been verbally conveyed by Paxton Chris DO to Dr. Silverio Helton, Referring Physician, on 06/04/2018 14:56:21 (ET). 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: Signed ALLERGIES ALLERGIES DATE TYPE / CODE NAME / CODE REACTION SEVERITY SOURCE 08/24/2018 Drug No Known Unknown [place] [facility] Allergy/4160 Allergies/F00 [facility] [address]93(SNOMED 3902402(RXNOR Repository CT) M) ENCOUNTERS ENCOUNTERS ADMIT/DISCHARGE ACCOUNT ADMITTING ENCOUNTER LOCATION SOURCE NUMBER CLASS 11/13/2018 [id number] Ambulatory [place] 2 [facility] ing:PT Repository 10/27/2018 [id number] Ambulatory [place] 2 [facility] ing:MTLAB Repository 08/24/2018/ [id number] Emergency Iqng [place] 8 2 [facility] ing:ED Repository 06/23/2018/ [id number] Emergency Qing [place] 8 0 [facility] ing:ED Repository 06/17/2018 [id number] Ambulatory [place] 0 [facility] ing:MFPLAB Repository 06/04/2018/ [id number] [place], Inpatient Qing [place] 8 5 Filiberto Encounter [facility] ing:PCURoom: Repository [id number]: 1 06/04/2018 [id number] [place], Ambulatory BMSBuilding:B [place] 7 [facility] Repository 06/04/2018/ [id number] Ambulatory BMSBuilding:W [place] 8 7 [facility] Repository 06/04/2018/ [id number] Ambulatory BMSBuilding:W [place] 8 6 [facility] Repository PAYERS PAYERS ENCOUNTER GUARANTOR PAYER SUBSCRIBER SOURCE 11/13/2018 RUBÉN J Primary JALYN L [place] [id number] Insurance:MEDICAL FORBESDOB: [address] Number: Repository [id number]: (000) [id number] [phone] () Date:[id number] [address] [place] [address]BN: 11/13/2018 Secondary NOT GIVENUNK Qing Insurance:SELF PAY [facility] Number: Effective Repository Date:2018-11-07 10/27/2018 RUBÉN J Primary JALYN L [place] [id number] Insurance:MEDICAL FORBESDOB: [address] Number: Repository [id number]: 330 [id number] [phone] (HP) Date:5220-70-05YZ [address] [place] [address]HA: 10/27/2018 Secondary NOT GIVENUNK Qing Insurance:SELF PAY [facility] Number: Effective Repository Date:2018-10-27 08/24/2018 RUBÉN J Primary Jalyn L [place] [id number] Insurance:MEDICAL ForbesDOB: [facility] [place] Number: Repository [id number]: 330 [id number] [phone] (HP) Date:9688-90-41HG [address] [address]YY: 08/24/2018 Secondary NOT GIVENUNK [place] Insurance:SELF PAY [facility] Number: Effective Repository Date:2018-08-24 06/23/2018 RUBÉN J Primary Jalyn L [place] [id number] Insurance:MEDICAL ForbesDOB: [facility] [place] Number: Repository [id number]: 330 [id number] [phone] (HP) Date:9216-26-47GD [address] [address]RB: 06/23/2018 Secondary NOT GIVENUNK Qing Insurance:SELF PAY [facility] Number: Effective Repository Date:2018-06-23 06/17/2018 RUBÉN J Primary Jalyn L [place] [id number] Insurance:MEDICAL ForbesDOB: [facility] [place] Number: Repository [address]Dzl: 330 [id number] [phone] (HP) Date:4685-70-38ZK [address] [place] [address]WT: 06/17/2018 Secondary NOT GIVENUNK [place] Insurance:SELF PAY [facility] Number: Effective Repository Date:2018-06-17 06/04/2018 RUBÉN J Primary Jalyn L [place] [id number] Insurance:MEDICAL ForbesDOB: [address], [place] Number: Repository [id number]: 330 [id number] [phone] (HP) Date:7127-35-81YS [address] [address]JH: 06/04/2018 Secondary NOT GIVENUNK [place] Insurance:SELF PAY [facility] Number: Effective Repository Date:2018-06-04 06/04/2018 Rubén J Primary Jalyn L [place] [id number] Insurance:MEDICAL ForbesDOB: [address] Number: Repository [id number]: 330 [id number] [phone] (HP) Date:2204-04-45DS [address] [address]HE: 06/04/2018 Secondary NOT GIVENUNK [place] Insurance:SELF PAY [facility] Number: Effective Repository Date:2018-06-04 06/04/2018 RUBÉN J Primary Jalyn L [place] [id number] Insurance:MEDICAL ForbesDOB: [address], [place] Number: Repository [id number]: 330 [id number] [phone] (HP) Date:2990-09-51FZ [address] [address]IU: 06/04/2018 Secondary NOT GIVENUNK [place] Insurance:SELF PAY [facility] Number: Effective Repository Date:2018-06-04 06/04/2018 RUBÉN J Primary Jalyn L [place] [id number] Insurance:MEDICAL ForbesDOB: [address], [place] Number: Repository [id number]: [phone]) [id number] [phone] () Date:7938-84-70CP [address], [place] [address]TA: 06/04/2018 Secondary NOT GIVENUNK [place] Insurance:SELF PAY [facility]: Effective Repository Date:2018-06-04
== END ==
PROVIDERS: Family Provider Family Medicine; PCP Family Medicine; Referring Provider Family Medicine; Visit Provider Family Medicine
DX: I26.99 Other pulmonary embolism without acute cor pulmonale (principal); M54.40 Lumbago with sciatica, unspecified side; M54.12 Radiculopathy, cervical region
CPT/HCPCS: 36415; 72050; 72110; 80048; 81241; 81291; 83090; 85027; 85302; 85303; 85305; 85306; 85610; 85730; 86147

== ENCOUNTER 2018-12-05 15:00 | Outpatient (RCR) | payer OTHER, SELFPAY ==
--- NOTE | 2018-11-13 18:57 | HP.PTEVAL ---
Patient's Visit Information HARRY WILLOUGHBY is a 53 year old M referred to Physical Therapy by Nathan Cortes MD with a diagnosis of lumbago with sciatica and cervical radiculopathy.. Date of Evaluation: 11/13/18 Physical Therapist: Harry Ng, DPT, OCS, CSCS - Visit Plan Frequency: 2x /Week Duration: 4-6 Weeks Plan: 2x/week for 3-6 weeks for: 1. cervical retraction ex and manual traction with L UT and SCM stretching. 2. LB flexion bias stretching and ROM and NS strength. body mechanics and posture. Progress all to HEP. May use ES and MH if needed for pain. - Subjective Findings: L neck pain for a long time...years. 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 In last two months has progressed tingling laterally from elbow to index finger L UE. Last two weeks tingling inermittently up to upper arm. Happens a couple times per day and lasts 5 minutes as he moves it out. Neck pain is central to L constant. Working at [employer] and is better on the go. Worse in morning and if sitting. Only gets 2-3 hours per night due to pain out of a normal 6/10. Basic ADLs are good . 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 LBP is sciatic and had it long time since August with sudden central LBP while cutting a few trees down. Chiropractor helped LBP go away sciatic in L buttocks got worse. Constant at 3/10. Worse in am and at night. Hard to bend in morning. No problems coughing or sneezing or urinating problems. No regualr back or neck ex. - Pain L neck Pain Intensity (Out of 10): 7 Pain Intensity Range: 2, 10 - Objective Walks and trasnfers I without difficulty. Forward head posture with flat lordosis in lumbar and cervical spine. C/S AROM is limited in retraction, ext is 45, SB is painful L B and rotation is 55 B no pain. reflexes UE 2/3 bi and tri. Sensation UE WNL to gross light touch. Strength UE 5/5. repeated cervical retraction in supine diminishes L scap pain. LB AROM ext mod limited. SB are WFL, flexion is stiff with L leg pain in HS and glut. reflexes 2/3 patella and achilles B. Sensation is at deficit L lateral lower leg. Strength is 5/5 except L DF 4+. - Goals Goal 1:: Abolish UE adn LE numb, tingly and pain 1/10 in LB and 2/10 in L neck at most adn 75% improved. Goal Time Frame: 4-6 Weeks Goal 2:: sleep without interruption form pain Goal Time Frame: 4-6 Weeks Goal 3:: I approp ex to minimize future problems Goal Time Frame: 4-6 Weeks Goal 4:: Get up in morning without back or neck pain. Goal Time Frame: 4-6 Weeks - Rehabilitation Potential Physical Therapy Diagnosis: lumbar stenosis and cervical radiculopathy. Rehabilitation Potential: Fair - Anticipated Interventions Patient/Client Instruction: Educate patient on: Condition, Plan of Care For the Purpose of:: To decrease pain, To increase tolerance to activity/condition/position Therapeutic Exercise to Include: Strength training, Flexibilty training, Passive ROM, Active ROM, Dynamic Lumbar Stabilization For the Purpose of:: To decrease pain, To increase ROM, To increase tolerance to activity/condition/position, To improve ability of physical actions for home/community/work/leisure Manual Therapy Techniques to Include: Mobilization For the Purpose of:: To increase ROM TENS: Yes Thermo therapy (hot pack): Yes For the Purpose of:: To decrease pain Thank you for the opportunity to evaluate your patient. For Medicare and Medicare HMO plans, please review the plan of care and approve it. It will need to be FAXED BACK to us at [phone] for Medicare purposes. For Medicare only, by signing this I certify the plan of care. Please let me know if there are questions or concerns regarding this plan of care. Physician Signature: Date:
--- NOTE | 2018-12-05 16:02 | HP.PTDCSUM_ITS ---
HP - PT D/C Summary It has been my pleasure to treat HARRY WILLOUGHBY under orders from Nathan Cortes MD, for the diagnosis of lumbago with sciatica and cervical radiculopathy. for a total of 7 visit(s). Discharge Date: 12/05/18 Please see the following information for a summary of their discharge status. - Subjective Subjective: Chiropractor adjustment last night put him in pain all night. Neck pain not as painful but still gets tightness L neck and tingling in certain positions. Chin tucks get rid of tingling. LB is slightly better than 3 weeks ago. Strengthening has helped in the last week. Sleep is interrupted with LBP. No f/u with doctor scheduled. - Pain L neck Pain Intensity (Out of 10): 1 Bilat LE's Pain Intensity (Out of 10): 4 L SI joint Pain Intensity (Out of 10): 4 - Overall Improvement % Improvement: 20 - Objective Objective/Function: LB AROM ext without pain, flexion very limited and hesitant, slightly better after cat/cow and child's pose stretches. C/S AROM is hesitant and pionch L c/s with ext at 40 degrees improving with repeated motion, L rotationslightly limited before ext then much better. Posture still tends forward head and stiff spine. OVERALL PROGRESSING SLOWER THAN EXPECTED ADN WISHES TO TAKE NEXT STEP WITH DR. Quiroz BEFORE CONTINUING THERAPY IF NEEDED. FUR THER STRETCHING ADN POSSIBLY WATER EXERCISE MAY BE VERY HELPFUL FOR PATIENT IF NO OTHER OPTIONS. - Goals Goal 1:: Abolish UE adn LE numb, tingly and pain 1/10 in LB and 2/10 in L neck at most adn 75% improved. Goal Progress: Progressing Goal 2:: sleep without interruption form pain Goal Progress: Not Progressing Goal 3:: I approp ex to minimize future problems Goal Progress: Progressing Goal 4:: Get up in morning without back or neck pain. Goal Progress: Progressing - Plan Plan: D/C, PT TO SCHEDULE BACK WITH DOCTOR. - D/C Information Discharge Comments: Pt back to doctor for next medical step but shuld consider further therapy and possibly water therapy if no other medical options viable. If there are questions or concerns regarding this patient's physical therapy, please feel free to call me at [phone]. Thank you for the referral of this patient. Sincerely, Harry Ng, DPT, OCS, CSCS
== END 2018-12-05 19:00 | disposition home or self-care (01) ==
LOC: PT 15:00
PROVIDERS: Family Provider Family Medicine; PCP Family Medicine; Referring Provider Family Medicine; Visit Provider Family Medicine
DX: M54.12 Radiculopathy, cervical region (principal); M54.40 Lumbago with sciatica, unspecified side; M50.30 Other cervical disc degeneration, unspecified cervical region
CPT/HCPCS: 97014; 97110; 97140; 97162; 97530; G0283

== ENCOUNTER → 2018-12-22 10:09 | Outpatient (CLI) | payer OTHER, SELFPAY ==
--- NOTE | 2018-12-22 10:29 | MRI_ITS ---
STUDY: MRI LUMBAR SPINE WITHOUT CONTRAST REASON FOR EXAM: Male, 53 years old. LUMBAGO, left leg pain. TECHNIQUE: Standardized fat and water weighted pulse sequences were obtained in the sagittal and axial planes. COMPARISON: October 27, 2018 FINDINGS: T12-L1: Normal endplates. Normal disc height, hydration and morphology. Normal bilateral facet joints. Normal central canal and bilateral lateral recesses. Normal bilateral intervertebral neural foramina. Normal lumbar lordosis. There is no substantial scoliosis. Normal conus medullaris that terminates at the L1 L1-2: There is minimal disc space narrowing and endplate spondylosis. There is no significant disc herniation, central canal or foraminal stenosis. L2-3: There is minimal disc space narrowing and endplate spondylosis. There is no significant disc herniation, central canal or foraminal stenosis. . There is mild facet adenopathy L3-4: There is mild disc space narrowing and endplates spondylosis. There is minimal disc bulge and facet arthropathy without significant central canal or foraminal stenosis. L4-5: There is mild disc space narrowing and endplates spondylosis. There is a mild disc bulge with left paracentral protrusion with moderate left lateral recess narrowing. There is facet hypertrophy contributing to moderate central canal stenosis. There is mild bilateral foraminal stenosis L5-S1: There is moderate disc space narrowing and endplates spondylosis. There is moderate disc osteophyte complex and facet arthropathy without significant central canal stenosis. There is mild right and mild left foraminal stenosis. Normal visualized sacral ala. Normal visualized paraspinous soft tissue structures. MRI/Spine Lumbar (Routine) IMPRESSION: L4/L5: Disc protrusion with moderate left lateral recess narrowing. Moderate central canal stenosis. Electronically Signed: Daniel White MD at 9:33 EST Tel , Service support ,
--- OUTSIDE RECORDS SUMMARY | 2019-02-23 20:23 | XMS RPT_ITS ---
:1965 Author Organization OHIP Support Name Relationship Address Phone JALYN WILLOUGHBY Unavailable [address] + [place] [address] WILLOUGHBY KENDRICK Unavailable [address] + [place] [address] [facility] Unavailable [address] + [place] [address] CASE JALYN Unavailable [address] + [place] [address] WILLOUGHBY, KENDRICK Unavailable [address] + [place] [address] [employer] Unavailable [address] + [place] [address] WILLOUGHBY JALYN Unavailable [address] + [place] [address] WILLOUGHBY, KENDRICK Unavailable [address] + [place] [address] [employer] Unavailable [address] + [place] [address] WILLOUGHBY, JALYN Unavailable [address] + [place] [address] WILLOUGHBY, KENDRICK Unavailable [address] + [place] [address] [employer] Unavailable [address] + [place] [address] WILLOUGHBY, JALYN Unavailable [address] + [place] [address] WILLOUGHBY, KENDRICK Unavailable [address] + [place] [address] [employer] Unavailable [address] + [place] [address] WILLOUGHBY, JALYN Unavailable [address] + [place] [address] WILLOUGHBY, KENDRICK Unavailable [address] + [place] [address] [employer] Unavailable [address] + [place] [address] WILLOUGHBY, JALYN Unavailable [address] + [place] [address] WILLOUGHBY, KENDRICK Unavailable [address] + [place] [address] [employer] Unavailable [address] + [place] [address] WILLOUGHBY, JALYN Unavailable [address] + [place] [address] WILLOUGHBY, KENDRICK Unavailable [address] + [place] [address] [employer] Unavailable [address] + [place] [address] WILLOUGHBY, JALYN Unavailable [address] + [place] [address] WILLOUGHBY, KENDRICK Unavailable [address] + [place] [address] [employer] Unavailable [address] + [place] [address] WILLOUGHBY, JALYN Unavailable [address] + [place] [address] WILLOUGHBY, KENDRICK Unavailable [address] + [place] [address] [employer] Unavailable [address] + [place] [address] Care Team Providers Name Role Phone GUMARO PHIPPS Attending Unavailable CHELSIE CORTES Referring Unavailable Chelsie Cortes Attending Unavailable Chelsie Cortes Referring Unavailable Chelsie Cortes Primary Care Unavailable Ranney, Christopher Primary Care Unavailable Agyepong, Filiberto Admitting Unavailable Agyepong, Filiberto Attending Unavailable Agyepong, Filiberto Admitting Unavailable Paintsil, Wichita Attending Unavailable Ranney, Christopher Primary Care Unavailable Paintsil, [place] Consulting Unavailable Michelle Aldrich Attending Unavailable Ranney, Christopher Primary Care Unavailable Agyepong, Filiberto Attending Unavailable Ranney, Christopher Primary Care Unavailable Galicia, Topher Attending Unavailable Odilon Suh Attending Unavailable [facility] Unavailable Lucas Goodman Attending Unavailable Ranney, Christneemaer Attending Unavailable Ranney, Christopher Referring Unavailable Ranney, Christopher Primary Care Unavailable Ranney, Christopher Attending Unavailable Ranney, Christopher Referring Unavailable Ranney, Christopher Primary Care Unavailable PROBLEMS PROBLEMS DATE TYPE CONDITION / CODE ATTENDING STATUS SOURCE 12/11/2018 Unknown M54.12 - Ransari, Active Qing Radiculopathy, [facility] cervical region / Hospital M54.12(ICD-10) Repository 12/11/2018 Unknown M54.40 - Lumbago Ransari, Active Qing with sciatica, [facility] unspecified side Hospital / M54.40(ICD-10) Repository 12/11/2018 Unknown M50.30 - Other Ranney, Active Qing cervical disc [facility] degeneration, Hospital unspecified Repository cervical region / M50.30(ICD-10) 11/11/2018 Unknown I26.99 - Other Ranney, Active Qing pulmonary [facility] embolism without Hospital acute cor Repository pulmonale / I26.99(ICD-10) PROCEDURES PROCEDURES No Procedure Records FoundRESULTS RESULTS SPINE LUMBAR Observed: 12/22/2018 Status: F Source: [place] (ROUTINE) 10:29 AM [facility] RE[facility] Imaging Services [address] [place] [address] Spine Lumbar (Routine) MR#: [id number] Acct: [id number] Name: CASERUBÉN J Rep #: [id number] : 1965 M 53 From: Daniel White PCP: Chelsie Cortes MD Status: REG CLI Study: Spine Lumbar (Routine) Date of Exam: 12/22/18 Exam# [id number] Ordering Dr: Nathan Cortes MD STUDY: MRI LUMBAR SPINE WITHOUT CONTRAST REASON FOR EXAM: Male, 53 years old. LUMBAGO, left leg pain. TECHNIQUE: Standardized fat and water weighted pulse sequences were obtained in the sagittal and axial planes. COMPARISON: October 27, 2018 FINDINGS: T12-L1: Normal endplates. Normal disc height, hydration and morphology. Normal bilateral facet joints. Normal central canal and bilateral lateral recesses. Normal bilateral intervertebral neural foramina. Normal lumbar lordosis. There is no substantial scoliosis. Normal conus medullaris that terminates at the L1 L1-2: There is minimal disc space narrowing and endplate spondylosis. There is no significant disc herniation, central canal or foraminal stenosis. L2-3: There is minimal disc space narrowing and endplate spondylosis. There is no significant disc herniation, central canal or foraminal stenosis. . There is mild facet adenopathy L3-4: There is mild disc space narrowing and endplates spondylosis. There is minimal disc bulge and facet arthropathy without significant central canal or foraminal stenosis. L4-5: There is mild disc space narrowing and endplates spondylosis. There is a mild disc bulge with left paracentral protrusion with moderate left lateral recess narrowing. There is facet hypertrophy contributing to moderate central canal stenosis. There is mild bilateral foraminal stenosis L5-S1: There is moderate disc space narrowing and endplates spondylosis. There is moderate disc osteophyte complex and facet arthropathy without significant central canal stenosis. There is mild right and mild left foraminal stenosis. Normal visualized sacral ala. Normal visualized paraspinous soft tissue structures. MRI/Spine Lumbar (Routine) IMPRESSION: L4/L5: Disc protrusion with moderate left lateral recess narrowing. Moderate central canal stenosis. Electronically Signed: Daniel White MD at 9:33 EST Tel , Service support , CC: Chelsie Cortes MD Coal Trammer: Signed PT D/C SUMMARY (1) Observed: 12/08/2018 Status: F Source: [place] 6:42 AM [facility] REPOSITORY [facility] [address] [place] [address] / REHABILITATION SERVICES DISCHARGE SUMMARY MR#: [id number] Acct: [id number] Name: RUBÉN WILLOUGHBY Rep #: [id number] : 1965 53 From: Rubén Ng DPT, OCS, CSCS Referring Dr.: Chelsie Cortes MD Status: REG RCR Insurance: [facility] SELF PAY INSURANCE HP - PT D/C Summary It has been my pleasure to treat RUBÉN WILLOUGHBY under orders from Nathan Cortes MD, for the diagnosis of lumbago with sciatica and cervical radiculopathy. for a total of 7 visit(s). Discharge Date: 12/05/18 Please see the following information for a summary of their discharge status. - Subjective Subjective: Chiropractor adjustment last night put him in pain all night. Neck pain not as painful but still gets tightness L neck and tingling in certain positions. Chin tucks get rid of tingling. LB is slightly better than 3 weeks ago. Strengthening has helped in the last week. Sleep is interrupted with LBP. No f/u with doctor scheduled. - Pain L neck Pain Intensity (Out of 10): 1 Bilat LE's Pain Intensity (Out of 10): 4 L SI joint Pain Intensity (Out of 10): 4 - Overall Improvement % Improvement: 20 - Objective Objective/Function: LB AROM ext without pain, flexion very limited and hesitant, slightly better after cat/cow and child's pose stretches. C/S AROM is hesitant and pionch L c/s with ext at 40 degrees improving with repeated motion, L rotationslightly limited before ext then much better. Posture still tends forward head and stiff spine. OVERALL PROGRESSING SLOWER THAN EXPECTED ADN WISHES TO TAKE NEXT STEP WITH DR. Quiroz BEFORE CONTINUING THERAPY IF NEEDED. FURTHER STRETCHING ADN POSSIBLY WATER EXERCISE MAY BE VERY HELPFUL FOR PATIENT IF NO OTHER OPTIONS. - Goals Goal 1:: Abolish UE adn LE numb, tingly and pain 1/10 in LB and 2/10 in L neck at most adn 75% improved. Goal Progress: Progressing Goal 2:: sleep without interruption form pain Goal Progress: Not Progressing Goal 3:: I approp ex to minimize future problems Goal Progress: Progressing Goal 4:: Get up in morning without back or neck pain. Goal Progress: Progressing - Plan Plan: D/C, PT TO SCHEDULE BACK WITH DOCTOR. - D/C Information Discharge Comments: Pt back to doctor for next medical step but shuld consider further therapy and possibly water therapy if no other medical options viable. If there are questions or concerns regarding this patient's physical therapy, please feel free to call me at [phone]. Thank you for the referral of this patient. Sincerely, Rubén Ng, DPT, OCS, CSCS <Electronically signed by Rubén Ng DPT, OCS, CSCS> 12/08/18 0642 CC: Chelsie Cortes MD GLORIA Signed CNOVSP Observed: 12/04/2018 Status: COMPLETED Source: [place] 3:00 PM [facility] REPOSITORY Visit (SP) Office ([facility]) RUBÉN WILLOUGHBY ([id number]) 1965 M Date Time Provider Department 12/04/18 3:00 PM GUMARO PHIPPS During your visit today, we recorded the following information about you: Temperature Pulse Blood pressure Weight 97.9 degrees 82/minute 161/101 105.5 kg Height 1.93 m Gumaro Phipps DO 12/04/2018 3:41 PM Signed Consult requested by Dr. Cortes for my opinion and recommendations regarding a patient with history of pulmonary embolism. The impression and plan will be communicated by way of the shared electronic record. HPI: Patient is a 53-year-old male who had a history of a DVT of his left leg following meniscus surgery 2012. Was on Xarelto for about 3 months. In Daph[place] of this year he was admitted to [facility] after developing hemoptysis following a return flight from [place] (6 hours to [place] then 4 hours to [place]--doesn't get up and move much once on an airplane). He had onset of chest pain just prior to his ER presentation was found to have bilateral pulmonary emboli. Echocardiogram at that time was unremarkable. Duplex ultrasound revealed acute DVT in the left popliteal vein. There was also acute DVT in the left tibial peroneal trunk and left peroneal vein. There was no evidence of right lower extremity DVT. Patient was anticoagulated with Xarelto on discharge. Xarelto was recently discontinued weekend prior to 2017 and on October 27, 2018 hypercoagulable testing was ordered. Patient was found to have no evidence of anticardiolipin antibodies including IgG and IgM as well as beta-2 glycoprotein negative. Lupus anticoagulant testing was found to be indeterminant based on a minimally elevated activated partial thromboplastin time and a weakly positive dRVVT. Protein S total, free and functional were all normal. Protein C functional and antigen were normal. Antithrombin activity was normal. Testing for factor V Leiden was negative. Serum creatinine was 1.66 mg/dL. Still has occasional hemoptysis--has had 3-4 episodes where it lasts about 1-2 days. Blood tinged sputum. No chest pain since summer 2017. Denies frequent cough, wheeze and shortness of breath. Works in a [employer]. No chronic swelling/edema of left leg. Has left sided sciatica since August 2018. Sees chiropractor on regular basis and is in PT. No family history of blood clots. Didn't notice excessive bleeding when on Xarelto and had cut/scratch. BP up today. He says typically 120s/80s. Up today due to pain. Smokes on occasion--about 10 cigs a year and cigars. Occasional alcohol. Had colonoscopy in the past--one polyp. He recalls having prostate exam several years ago by Dr. Johns. PMH, medications and allergies personally reviewed by me today. Any changes documented in appropriate section. ROS: Constitutional: Denies episodes of fever and night sweats. Not significantly fatigued. Normal appetite. Neuro: Denies WILSON, vertigo, dizziness and imbalance. Denies symptoms of neuropathy. HEENT: No recent change in voice, vision or hearing. Resp: See above. CVS: Denies exertional chest pain, PND and orthopnea. GI: Denies dysgeusia. Denies symptoms of stomatitis. Denies dysphagia and odynophagia. Denies reflux, n/v, change in bowel habits and abdominal pain. : Denies dysuria or gross hematuria. No symptoms of bladder outlet obstruction. Endo: Denies hot flashes. Denies polyuria and polydipsia. Denies heat and cold intolerance. Musculoskeletal: Denies joint and muscular pain. Derm: Denies rash. Denies jaundice and diffuse pruritis. Heme: Denies unusual bleeding and unexplained bruising. Psych: Normal mood. PHYSICAL EXAM: Vitals: Blood pressure 161/101, pulse 82, temperature 36.6 ?C (97.9 ?F), temperature source Temporal Artery, height 193 cm (6' 3.98), weight 105.5 kg (232 lb 8 oz). Well-appearing and in no acute distress. EYES: Sclerae are anicteric bilaterally. ENT: Oral mucosa is unremarkable. There is no sign of thrush or mucositis. NECK: Supple. No enlargement of thyroid. LYMPHATIC: There is no palpable cervical, supraclavicular, axillary or inguinal adenopathy. RESPIRATORY: Inspiratory breath sounds are of diminished intensity in all hlom. No rales, wheezes or rhonchi. CARDIOVASCULAR: Rhythm is regular. Normal intensity S1/S2. There is no gallop or murmur. ABDOMEN: The abdomen is nondistended. No organomegaly. No tenderness. Extremities: No swelling or edema. SKIN: No jaundice or rash. No petechiae. NEUROLOGIC: sand caster II-XII are grossly intact. No focal motor weakness. MUSCULOSKELETAL: No muscle wasting. ASSESSMENT/PLAN: (I27.82) Chronic pulmonary embolism without acute cor pulmonale, unspecified pulmonary embolism type (HCC) (primary encounter diagnosis) Assessment: -In summary the patient is a 53-year-old male who said to provoked venous thromboembolic events. He does not have symptoms or exam evidence of postphlebitic syndrome. He had indeterminate testing for lupus anticoagulant based on the second sensitive PTT test returning 1/10 of a second prolonged and dRVVT confirmation ratio 1.4. -Not clear that he needs ongoing anticoagulation. He may have chronic kidney disease and uncontrolled hypertension secondary to NSAID use and pain. Plan: -Repeat lupus anticoagulant testing and assess for prothrombin gene mutation at the end of January. -Counseled him to quit smoking altogether. -He should have ongoing age and gender appropriate cancer screening studies. -He is familiar with the symptoms and signs of DVT and will present to the emergency room should he develop any. (I10) Hypertension, unspecified type Assessment: -He recalls being normotensive in the past. He thinks blood pressure is up today because of the pain. Plan: -I will discuss with his PCP. Gumaro Phipps, DO Karon Millan LPN 12/04/2018 3:10 PM Signed New patient. DX of PE. Karon Millan LPN Referring Provider: CHELSIE CORTES [[id number]] Allergies As of Date: 12/04/2018 (No Known Allergies) Date Reviewed: 12/04/2018 Reviewed by: Gumaro Phipps - Fully Assessed Reason for Visit: New Patient [172] Primary Visit Diagnosis:Chronic pulmonary embolism without acute cor pulmonale, unspecified pulmonary embolism type (HCC) [I27.82] Other Visit Diagnosis:Hypertension, unspecified type [I10] Order(s):LUPUS ANTICOAG PL [SQLUPUSP] Order #: [id number] FUTURE PROTHROMBIN GENE PCR [SQPTGENE] Order #: [id number] FUTURE Follow-up and Disposition History Recorded Prescriptions as of 12/04/2018 Sig: ACETAMINOPHEN 500 MG TABLET Take 1,000 mg by mouth every * IBUPROFEN 200 MG CAPSULE Take 3 capsules by mouth as n* TIZANIDINE 4 MG TABLET Take 4 mg by mouth three time* Medication notes this encounter TIZANIDINE 4 MG TABLET >> Karon Millan LPN 12/04/2018 3:05 PM >> KARON MILLAN LPN Dec 04, 2018 3:05 PM Hasn't picked up yet DILOTAB ORAL >> Karon Millan LPN 12/04/2018 3:04 PM >> KARON MILLAN LPN Gillian Dec 04, 2018 3:04 PM Not taking AFRIN NASAL >> Karon Millan LPN 12/04/2018 3:04 PM >> KARON MILLAN LPN Dec 04, 2018 3:04 PM Not taking Problem List As Of Date 12/04/2018 Noted Resolved Colon cancer screening [Z12.11] INVALID FOR*02/17/2016 Chronic pulmonary embolism without acute cor pu*INVALID FOR* Visit Notes: >> Karon Millan LPN Gillian Dec 04, 2018 3:07 PM Status: Signed New patient. DX of PE. Karon Millan LPN Encounter Status:Closed by GUMARO PHIPPS DO on 12/04/18 PROGRESS Observed: 12/04/2018 Status: COMPLETED Source: [place] 2:02 PM [facility] REPOSITORY HNO ID: [id number] Author: Gumaro Phipps Service: (none) Author Type: Physician Type: Progress Notes Filed: 12/04/2018 3:41 PM Note Text: Consult requested by Dr. Cortes for my opinion and recommendations regarding a patient with history of pulmonary embolism. The impression and plan will be communicated by way of the shared electronic record. HPI: Patient is a 53-year-old male who had a history of a DVT of his left leg following meniscus surgery 2012. Was on Xarelto for about 3 months. In June of this year he was admitted to [facility] after developing hemoptysis following a return flight from [place] (6 hours to [place] then 4 hours to [place]--doesn't get up and move much once on an airplane). He had onset of chest pain just prior to his ER presentation was found to have bilateral pulmonary emboli. Echocardiogram at that time was unremarkable. Duplex ultrasound revealed acute DVT in the left popliteal vein. There was also acute DVT in the left tibial peroneal trunk and left peroneal vein. There was no evidence of right lower extremity DVT. Patient was anticoagulated with Xarelto on discharge. Xarelto was recently discontinued weekend prior to 2017 and on October 27, 2018 hypercoagulable testing was ordered. Patient was found to have no evidence of anticardiolipin antibodies including IgG and IgM as well as beta-2 glycoprotein negative. Lupus anticoagulant testing was found to be indeterminant based on a minimally elevated activated partial thromboplastin time and a weakly positive dRVVT. Protein S total, free and functional were all normal. Protein C functional and antigen were normal. Antithrombin activity was normal. Testing for factor V Leiden was negative. Serum creatinine was 1.66 mg/dL. Still has occasional hemoptysis--has had 3-4 episodes where it lasts about 1-2 days. Blood tinged sputum. No chest pain since summer 2017. Denies frequent cough, wheeze and shortness of breath. Works in a [employer]. No chronic swelling/edema of left leg. Has left sided sciatica since August 2018. Sees chiropractor on regular basis and is in PT. No family history of blood clots. Didn't notice excessive bleeding when on Xarelto and had cut/scratch. BP up today. He says typically 120s/80s. Up today due to pain. Smokes on occasion--about 10 cigs a year and cigars. Occasional alcohol. Had colonoscopy in the past--one polyp. He recalls having prostate exam several years ago by Dr. Johns. PMH, medications and allergies personally reviewed by me today. Any changes documented in appropriate section. ROS: Constitutional: Denies episodes of fever and night sweats. Not significantly fatigued. Normal appetite. Neuro: Denies WILSON, vertigo, dizziness and imbalance. Denies symptoms of neuropathy. HEENT: No recent change in voice, vision or hearing. Resp: See above. CVS: Denies exertional chest pain, PND and orthopnea. GI: Denies dysgeusia. Denies symptoms of stomatitis. Denies dysphagia and odynophagia. Denies reflux, n/v, change in bowel habits and abdominal pain. : Denies dysuria or gross hematuria. No symptoms of bladder outlet obstruction. Endo: Denies hot flashes. Denies polyuria and polydipsia. Denies heat and cold intolerance. Musculoskeletal: Denies joint and muscular pain. Derm: Denies rash. Denies jaundice and diffuse pruritis. Heme: Denies unusual bleeding and unexplained bruising. Psych: Normal mood. PHYSICAL EXAM: Vitals: Blood pressure 161/101, pulse 82, temperature 36.6 ?C (97.9 ?F), temperature source Temporal Artery, height 193 cm (6' 3.98), weight 105.5 kg (232 lb 8 oz). Well-appearing and in no acute distress. EYES: Sclerae are anicteric bilaterally. ENT: Oral mucosa is unremarkable. There is no sign of thrush or mucositis. NECK: Supple. No enlargement of thyroid. LYMPHATIC: There is no palpable cervical, supraclavicular, axillary or inguinal adenopathy. RESPIRATORY: Inspiratory breath sounds are of diminished intensity in all holm. No rales, wheezes or rhonchi. CARDIOVASCULAR: Rhythm is regular. Normal intensity S1/S2. There is no gallop or murmur. ABDOMEN: The abdomen is nondistended. No organomegaly. No tenderness. Extremities: No swelling or edema. SKIN: No jaundice or rash. No petechiae. NEUROLOGIC: sand caster II-XII are grossly intact. No focal motor weakness. MUSCULOSKELETAL: No muscle wasting. ASSESSMENT/PLAN: (I27.82) Chronic pulmonary embolism without acute cor pulmonale, unspecified pulmonary embolism type (HCC) (primary encounter diagnosis) Assessment: -In summary the patient is a 53-year-old male who said to provoked venous thromboembolic events. He does not have symptoms or exam evidence of postphlebitic syndrome. He had indeterminate testing for lupus anticoagulant based on the second sensitive PTT test returning 1/10 of a second prolonged and dRVVT confirmation ratio 1.4. -Not clear that he needs ongoing anticoagulation. He may have chronic kidney disease and uncontrolled hypertension secondary to NSAID use and pain. Plan: -Repeat lupus anticoagulant testing and assess for prothrombin gene mutation at the end of January. -Counseled him to quit smoking altogether. -He should have ongoing age and gender appropriate cancer screening studies. -He is familiar with the symptoms and signs of DVT and will present to the emergency room should he develop any. (I10) Hypertension, unspecified type Assessment: -He recalls being normotensive in the past. He thinks blood pressure is up today because of the pain. Plan: -I will discuss with his PCP. Gumaro Phipps DO INITAL EVALUATION (1) Observed: 11/17/2018 Status: F Source: [place] - PT 6:45 AM [facility] REPOSITORY [facility] Physical [facility] [address] [place] [address]. [address] [place] [address] Fax REHABILITATION SERVICES INITIAL EVALUATION MR#: [id number] Acct: [id number] Name: RUBÉN WILLOUGHBY Rep #: [id number] : 1965 53 From: Rubén Ng DPT, OCS, CSCS Referring Dr.: Chelsie Cortes MD Status: REG RCR Insurance: [facility] SELF PAY INSURANCE Patient's Visit Information RUBÉN WILLOUGHBY is a 53 year old M referred to Physical Therapy by Nathan Cortes MD with a diagnosis of lumbago with sciatica and cervical radiculopathy.. Date of Evaluation: 11/13/18 Physical Therapist: Rubén Ng, DENIT, OCS, CSCS - Visit Plan Frequency: 2x /Week [...] is central to L constant. Working at [employer] and is better on the go. Worse [...] to be FAXED BACK to us at [phone] for Medicare purposes. For Medicare only, by signing this I certify the plan of care. Please let me know if there are questions or concerns regarding this plan of care. Physician Signature: Date: <Electronically signed by Rubén Ng DPT, OCS, CSCS> 11/17/18 0645 CC: Chelsie Cortes MD CHANELG Signed HOMOCYSTEINE Collected: 10/27/2018 Status: F Source: [place] 3:10 PM [facility] REPOSIT[facility] TYPE CODE TESTS RESULT OUT OF REFERENCE UNITS RANGE LAB L503.8001 3.2-10.7 umol/L HOMOCYSTEINE High 12.2 Performed By: #### L503.8001 #### [facility] [address] [place], [address] MISCELLANEOUS LAB Collected: 10/27/2018 Status: F Source: [place] PROCEDURE 2 3:10 PM [facility] REPOSITORY Order Comment: List Test(s) Ordered by Physician: EMIGDIO#[id number] ANTITHROMBIN FROZEN PLASMA TYPE CODE TESTS RESULT OUT OF RANGE REFERENCE UNITS LAB L801.1543 Normal [facility] LAB TEST 2 Result Comment: TEST RESULT LIMITS Antithrombin Activity 109 % 75 - 135 Direct Xa inhibitor anticoagulants such as rivaroxaban, apixaban and edoxaban will lead to spuriously elevated antithrombin activity levels possibly masking a deficiency. TESTING PERFORMED AT [facility]. ORIGINAL REPORT ON FILE IN LAB CONTAINS ADDITIONAL TEST SITE INFORMATION. Performed By: #### L801.1543 #### [facility] [address] [place], [address] MISCELLANEOUS LAB Collected: 10/27/2018 Status: F Source: [place] PROCEDURE 3:10 PM [facility] REPOSITORY Order Comment: Test(s) Ordered: LC#[id number] ANTIPHOSPHLIPID FROZEN PL/SERUM TYPE CODE TESTS RESULT OUT OF RANGE REFERENCE UNITS LAB L801.1541 Normal [facility] LAB TEST Result Comment: TEST RESULT LIMITS [...] APS- antiphospholipid syndrome; DTI-direct thrombin inhibitors. - PROJECT MANAGEMENT INTERN: For questions regarding panel interpretation, please contact Louie Blakely M.D. at [facility] at . DISCLAIMER These assessments and interpretations [...] V et al. J Thromb Haemost. 2009; 7(10):2884-0707. (2) Miydione S et al. J Thromb Haemost. 2006;4(2):295-306. (3) Vipin DA et al. Blood. 2007;110(9): 6794-1025. TESTING PERFORMED AT [facility]. ORIGINAL REPORT ON FILE IN LAB CONTAINS ADDITIONAL TEST SITE INFORMATION. Performed By: #### L801.1541 #### [facility] [address] [place], [place], [address] PROTEIN S DEFIC. Collected: 10/27/2018 Status: F Source: [facility] 3:10 PM [facility] REPOSITORY TYPE CODE TESTS RESULT OUT OF [...] C DEFIC. Collected: 10/27/2018 Status: F Source: [facility] 3:10 PM [facility] REPOSITORY TYPE CODE TESTS RESULT OUT OF RANGE REFERENCE UNITS LAB L3100.7310 60-150 % Normal PROTEIN C 107 LAB L3100.7335 73-180 % Normal PROT C,FUNC 131 Performed By: #### L3100.7075, L3100.7275, L3100.8408, L4500.5000, L4600.0155 #### [facility] (refer to report for specific site) refer to report for address and phone number ANTICARDIOLIPIN IGA,G,M Collected: 10/27/2018 Status: F Source: [place] 3:10 PM [facility] REPOSITORY TYPE CODE TESTS RESULT OUT OF [...] Status: F Source: [place] MUTATION 3:10 PM [facility] REPOSITORY TYPE CODE TESTS RESULT OUT OF [...] the workup for venous thrombosis include the [id number] mutation in the factor II (prothrombin) gene, protein S and C deficiency, and antithrombin deficiencies. Anticardiolipin antibody and lupus anticoagulant analysis may be appropriate for certain patients, as well as homocysteine levels. Contact your local [facility] for information on how to order additional testing if desired. Genetic counselors are available for health care providers to discuss results at [phone] Methodology: DNA analysis of the Factor V gene was performed by allele- specific PCR. The diagnostic sensitivity and specificity is >99% for both. Molecular-based testing is highly accurate, but as in any laboratory test, diagnostic errors may occur. All test results must be combined with clinical information for the most accurate interpretation. This test was developed and its performance characteristics determined by [employer]. It has not been cleared or approved by the Food and Drug Administration. References: Milton Maier (1996). Clin Lab Med 16:169-186. Gene Danielle, PhD, [employer]AC[facility] Caroline Farah, PhD, FAC Kaci Luke M.S., PhD, [facility] Concetta López, PhD, [employer] Eve Lindsey, PhD, [facility] Filiberto Mccabe PhD, FACMG Performed By: #### L3100.7075, L3100.7275, L3100.8408, L4500.5000, L4600.0155 #### [facility] (refer to report for specific site) refer to report for address and phone number MTHFR DNA VARIANT Collected: 10/27/2018 Status: F Source: [place] 3:10 PM [facility] REPOSITORY TYPE CODE TESTS RESULT OUT OF RANGE REFERENCE UNITS LAB L4600.0205 . Normal MTHFR DNA Comment Result Comment: Result: C677T/L1923U Two mutations (C677T and X7631P) identified Interpretation: This individual is heterzygous for both the MTHFR C677T and U0785S variants (one copy of each). Compound heterozygosity for the C677T and L2453H variants is unlikely to be of clinical [...] common variants in the MTHFR gene, c.655c>T (p.Jnb049Ueis), referred to as C677T, and c.1286A>C (p.Hty571Ntk), referred to as F2322R. Individuals homozygous for C677T (two copies of [...] conditions in the absence of hyperhomocysteinemia. The Q8387I variant is not associated with elevated homocysteine levels unless a C677T variant is also present; however, the clinical significance of heterozygosity for both C677T and F7866C is controversial. Population data suggest that these [...] health care providers to discuss results at [phone]. Methodology: DNA analysis of the MTHFR gene was performed by PCR amplification followed by restriction analysis. The diagnostic sensitivity is >99% for both. Molecular-based testing is highly accurate, but as in any laboratory test, rare diagnostic errors may occur. All test results must be combined with clinical information for the most accurate interpretation. This test was developed and its performance characteristics determined by [employer]. It has not been cleared or approved by the Food and Drug Administration. References: Angela LD, Hilton Q. Am J Epidemiol 2000; 151(9):862-877. Clover MM, Berkley JA. Arch Pathol Lab Med 2007; 131(6):872-884. Frosst P et al. Amanda Leol 1995; 10(1):111-113. Aria SE et al. Lelo Med 2013; 15(2):153-156. Galina C et al. Obstet Gynecol 2011; 118(3):730-740. Tyson B et al. Eur J Epidemiol 2013; 28(8):621-647. Gene Danielle, PhD, [facility] Caroline Farah, PhD, [facility] Suresh RodasSJosselyn, PhD, [facility] Concetta López, PhD, [employer] Eve Lindsey, PhD, [facility] Filiberto Mccabe, PhD, FACMG Performed at: BN - [facility] [address] [id number] Sales Representative Metals: Dayami Valerio MD, Phone: [phone] Performed at: CB - [facility] [place] [address] [place], [place] [id number] Sales Representative Metals: Lloyd Rodriguez PhD, Phone: [phone] Performed at: - [facility] [address] [place], [place] [id number] Sales Representative Metals: Artem Vital MD, Phone: [phone] Performed By: #### L3100.7075, L3100.7275, L3100.8408, L4500.5000, L4600.0155 #### [facility] (refer to report for specific site) refer to report for address and phone number CBC-COMPLETE BLOOD CNT Collected: 10/27/2018 Status: F Source: [place] NO DIFF 2:58 PM [facility] REPOSITORY TYPE CODE TESTS RESULT OUT OF [...] By: #### L100.0500, L300.3900, L300.4310, L500.2500 #### [facility] [address] [place], [address] PROTHROMBIN TIME W/INR Collected: 10/27/2018 Status: F Source: [place] 2:58 PM [facility] REPOSITORY TYPE CODE TESTS RESULT OUT OF RANGE REFERENCE UNITS LAB L300.4150 11.7-14.9 SECONDS Normal PROTIME 12.7 LAB L300.4200 Normal INR 1.0 Performed By: #### L100.0500, L300.3900, L300.4310, L500.2500 #### [facility] [address] [place], [address] PARTIAL THROMBOPLAST Collected: 10/27/2018 Status: F Source: [place] TIME 2:58 PM [facility] REPOSITORY TYPE CODE TESTS RESULT OUT OF RANGE REFERENCE UNITS LAB L300.4310 24.1-36.2 Seconds Normal PTT 29.9 Performed By: #### L100.0500, L300.3900, L300.4310, L500.2500 #### [facility] [address] [place], [place], [address] BASIC METABOLIC Collected: 10/27/2018 Status: F Source: [place] PROFILE (BMP) 2:58 PM [facility] REPOSITORY TYPE CODE TESTS RESULT OUT OF [...] By: #### L100.0500, L300.3900, L300.4310, L500.2500 #### [facility] [address] [place], [address] CERV SPINE 4 OR 5 Observed: 10/27/2018 Status: F Source: [place] VIEWS 2:56 PM [facility] REPOSITORY [facility] Imaging Services [address] [place] [address] Cerv Spine 4 or 5 Views MR#: [id number] Acct: [id number] Name: RUBÉN WILLOUGHBY Rep #: [id number] : 1965 M 53 From: Manan Butler MD PCP: hCelsie Cortes MD Status: REG CLI Study: Cerv Spine 4 or 5 Views Date of Exam: 10/27/18 Exam# [id number] Ordering Dr: Nathan Cortes MD HISTORY: neck [...] EST Tel , Service support , CC: Chelsie Cortes MD Coal Trammer: Signed L/S SPINE MIN 4 Observed: 10/27/2018 Status: F Source: [place] VIEWS 2:56 PM [facility] REPOSITORY [facility] Imaging Services [address] [place] [address] L/S Spine Min 4 Views MR#: [id number] Acct: [id number] Name: RUBÉN WILLOUGHBY Rep #: [id number] : 1965 M 53 From: Manan Butler MD PCP: Chelsie Cortes MD Status: REG CLI Study: L/S Spine Min 4 Views Date of Exam: 10/27/18 Exam# [id number] Ordering Dr: Nathan Cortes MD HISTORY: low [...] EST Tel , Service support , CC: Chelsie Cortes MD Coal Trammer: Signed DISCHARGE INSTRUCTION Observed: 08/24/2018 Status: F Source: [place] 4:04 PM [facility] Medical Records Department [address] [place] [address] Discharge Instruction 08/24/18 1603 MR#: [id number] Acct: [id number] Name: RUBÉN WILLOUGHBY Rep #: [id number] : 1965 52 From: Lucas Goodman MD PCP: Chelsie Cortes MD Status: REG ER ED Disposition - Plan for ED Patient: Chief Complaint: Cough Instructions: Acute Bronchitis, ED Hemoptysis Referrals: Nathan Cortes MD [Primary Care Provider] - What to do if you have Problems For any increased pain, shortness of breath, bleeding, nausea or vomiting, chest pain, or any unexpected problems, contact your Primary Care Provider. Call [facility] ([phone]) or report to the closest Emergency Room. Call 911 if necessary. 08/24/18 1604 <Electronically signed by Lucas Goodman MD> Date Lucas Goodman MD Cosigner Signature (If Indicated): Date CC: Chelsie Cortes MD EMERGENCY DEPARTMENT Observed: 08/24/2018 Status: F Source: [place] SUMMARY 4:03 PM [facility] REPOSITORY [facility] Medical Records Department [address] [place] [address] Emergency Department Summary 08/24/18 1600 MR#: [id number] Acct: [id number] Name: RUBÉN WILLOUGHBY Rep #: [id number] : 1965 52 From: Lucas Goodman MD PCP: Chelsie Cortes MD Status: REG ER - ER [...] Impression: Bronchitis This note was generated with [employer] dictation software. It may contain incorrect words, [...] your Primary Care Provider. Call [facility] ([phone]) or report to the closest Emergency Room. Call 911 if necessary. 08/24/18 1603 <Electronically signed by Lucas Goodman MD> Date Lucas Goodman MD Cosigner Signature (If Indicated): Date CC: Chelsie Cortes MD PROTHROMBIN TIME W/INR Collected: 08/24/2018 Status: F Source: [place] 3:10 PM [facility] REPOSITORY TYPE CODE TESTS RESULT OUT OF RANGE REFERENCE UNITS LAB L300.4150 11.7-14.9 SECONDS Normal PROTIME 13.8 LAB L300.4200 Normal INR 1.1 Performed By: #### L300.3900, L300.8000 #### [facility] [address] [place], [address] D-DIMER QUANTITATIVE Collected: 08/24/2018 Status: F Source: [place] (DVT/PE) 3:10 PM [facility] REPOSITORY TYPE CODE TESTS RESULT OUT OF RANGE REFERENCE UNITS LAB L300.8000 0.27-0.49 FEU/ug/m Low D-DIMER < 0.27 QUANT Result Comment: NORMAL D-Dimer level (<0.50) indicates no DVT or PE. NORMAL D-Dimer level (<0.50) indicates no DVT or PE. Performed By: #### L300.3900, L300.8000 #### [facility] [address] [place], [place], [address] CBC W/DIFF, AUTOMATED Collected: 08/24/2018 Status: F Source: [place] 3:10 PM [facility] REPOSITORY TYPE CODE TESTS RESULT OUT OF [...] Lymph 0.98 Performed By: #### L100.0100 #### [facility] [address] [place], [address] BASIC METABOLIC Collected: 08/24/2018 Status: F Source: [place] PROFILE (BMP) 3:10 PM [facility] REPOSITORY TYPE CODE TESTS RESULT OUT OF [...] GAP 7 Performed By: #### L500.2500 #### [facility] [address] [place], [address] CHEST PA AND LATERAL Observed: 08/24/2018 Status: F Source: [place] 3:01 PM [facility] REPOSITORY [facility] Imaging Services [address] [place] [address] Chest PA and Lateral MR#: [id number] Acct: [id number] Name: RUBÉN WILLOUGHBY Rep #: [id number] : 1965 M 52 From: Keyana Singer MD PCP: Chelsie Cortes MD Status: REG ER Study: Chest PA and Lateral Date of Exam: 08/24/18 Exam# [id number] Ordering Dr: Lucas Goodman MD STUDY: X-RAY [...] 15:52 EDT , Service support , CC: Chelsie Cortes MD; Lucas Goodman MD Coal Trammer: Signed EMERGENCY DEPARTMENT Observed: 06/23/2018 Status: F Source: [place] SUMMARY 1:32 PM [facility] REPOSITORY [facility] Medical Records Department [address] [place] [address] Emergency Department Summary 06/23/18 1328 MR#: [id number] Acct: [id number] Name: RUBÉN WILLOUGHBY Rep #: [id number] : 1965 52 From: Topher Galicia MD PCP: Chelsie Cortes MD Status: REG ER - ER [...] diagnosed PE This note was generated with [employer]il dictation software. It may contain incorrect words, [...] problems, contact your Primary Care Provider. Call [facility] ([phone]) or report to the closest Emergency Room. Call 911 if necessary. 06/23/18 1332 <Electronically signed by Topher Galicia MD> Date Topher Galicia MD Cosigner Signature (If Indicated): Date CC: Chelsie Cortes MD CBC W/DIFF, AUTOMATED Collected: 06/17/2018 Status: F Source: [place] 10:56 AM [facility] REPOSITORY Order Comment: Order Date: 06/17/18 Order [...] 2.14 Performed By: #### L100.0100, L300.3900 #### [facility] [address] [place] [address]. [place], [address] #### L4500.0100 #### [facility] (refer to report for specific site) refer to report for address and phone number PROTHROMBIN TIME W/INR Collected: 06/17/2018 Status: F Source: [place] 10:56 AM [facility] REPOSITORY Order Comment: Order Date: 06/17/18 Order Info: 6301-6 - PT TYPE CODE TESTS RESULT OUT OF RANGE REFERENCE UNITS LAB L300.4150 11.7-14.9 SECONDS High PROTIME 16.7 LAB L300.4200 Normal INR 1.4 Performed By: #### L100.0100, L300.3900 #### [facility] [address] [place], [address] #### L4500.0100 #### [facility] (refer to report for specific site) refer to report for address and phone number LUPUS ANTICOAGULANT COMP Collected: 06/17/2018 Status: F Source: [place] 10:56 AM [facility] REPOSITORY Order Comment: Order Date: 06/17/18 Order [...] therapies. Performed By: #### L100.0100, L300.3900 #### [facility] [address] [place], [address] #### L4500.0100 #### [facility] (refer to report for specific site) refer to report for address and phone number PROTEIN S DEFIC. Collected: 06/17/2018 Status: F Source: [place] 10:56 AM [facility] REPOSITORY Order Comment: Order Date: 06/17/18 Order [...] 06/17/2018 Status: F Source: [place] 10:56 AM [facility] REPOSITORY Order Comment: Order Date: 06/17/18 Order Info: 0215-1 - LUPUS TYPE CODE TESTS RESULT OUT OF RANGE REFERENCE UNITS LAB L3300.0500 75-135 % Normal AT3 FUNCTION 107 Result Comment: Direct Xa inhibitor anticoagulants such as rivaroxaban, apixaban and edoxaban will lead to spuriously elevated antithrombin activity levels possibly masking a deficiency. Performed at: BN - [facility] [address] [id number] Sales Representative Metals: Sammy Jackson MD, Phone: [phone] Performed at: TG - [facility] [address] [place], [place] [id number] Sales Representative Metals: Artem Vital MD, Phone: [phone] Performed By: #### L3100.7075, L3300.0500, L4500.5000 #### [facility] (refer to report for specific site) refer to report for address and phone number FACT V LEIDEN Collected: 06/17/2018 Status: F Source: [place] MUTATION 10:56 AM [facility] REPOSITORY Order Comment: Order Date: 06/17/18 Order [...] the workup for venous thrombosis include the S10380J mutation in the factor II (prothrombin) gene, protein S and C deficiency, and antithrombin deficiencies. Anticardiolipin antibody and lupus anticoagulant analysis may be appropriate for certain patients, as well as homocysteine levels. Contact your local [facility] for information on how to order additional testing if desired. Genetic counselors are available for health care providers to discuss results at [phone] Methodology: DNA analysis of the Factor V [...] Clin Lab Med 16:169-186. Gene Danielle, PhD, [facility] Caroline Farah, PhD, [facility] Suresh RodasSJosselyn, PhD, [facility] Concetta López, PhD, [facility] Eve Lindsey, PhD, [facility] Filiberto Mccabe PhD, [facility] Performed By: #### L3100.7075, L3300.0500, L4500.5000 #### [facility] (refer to report for specific site) refer to report for address and phone number 12 LEAD ELECTROCARDIOGRAM Observed: 06/09/2018 Status: F Source: [place] 3:42 PM [facility] Cardiovascular Services [address] [place] [address] 12 Lead EKG 06/04/18 1313 MR#: [id number] Acct: [id number] Name: RUBÉN WILLOUGHBY Rep #: [id number] : 1965 52 From: Ihsan Morales MD Attending Dr: Filiberto Bazan MD Status: DIS IN Ordering Dr: Silverio Helton MD Date: 06/04/18 Location: [facility] Sex: M C Admitted: 06/04/18 Test Reason : SOB Blood Pressure : / mmHG Vent. Rate : 085 BPM Atrial Rate : 085 BPM P-R Int : 148 ms QRS Dur : 112 ms QT Int : 374 ms P-R-T Axes : 041 032 042 degrees QTc Int : 445 ms Normal sinus rhythm Normal ECG Confirmed by HANK MATOS, IHSAN ([id number]), editorial specialist KACI VIEYRA ([id number]) on 06/09/2018 3:41:47 PM Referred By: YOLANDA Confirmed By:IHSAN MORALES MD 06/09/18 1541 Date Ihsan Morales MD CC: Chelsie Cortes MD; Filiberto Bazan MD; Silverio Helton Signed VENOUS DUPLEX LOWER Observed: 06/07/2018 Status: F Source: [place] EXTREMITY 2:41 PM [facility] Cardiovascular Services [address] [place] [address] Venous Duplex US - Robert Extrem 06/05/18 0805 MR#: [id number] Acct: [id number] Name: RUBÉN WILLOUGHBY Rep #: [id number] : 1965 52 From: Pola Hill MD Attending Dr: Filiberto Bazan MD Status: DIS IN Ordering Dr: Filiberto Bazan MD Date: 06/04/18 Location: [facility] Sex: M C Admitted: 06/04/18 Reason For [...] was called and/or faxed to Pt nurse Sunita. Interpretation Summary Acute deep vein thrombosis is [...] segmentally. Ordering Physician: Filiberto Bazan Referring Physician: Chelsie Cortes MD Performed By: Victorina Clark RVT 06/07/18 1440 Date Pola Hill MD CC: Chelsie Cortes MD; Filiberto Bazan MD Date Dictated: 06/05/18 0805 Date Transcribed: 06/07/18 1440 Coal Trammer: Signed DISCHARGE SUMMARY Observed: 06/06/2018 Status: F Source: [place] 11:22 AM [facility] REPOSITORY [facility] Medical Records Department [address] [place] [address] Discharge Summary 06/06/18 1031 MR#: [id number] Acct: [id number] Name: RUBÉN WILLOUGHBY Rep #: [id number] : 1965 52 From: Filiberto Bazan MD PCP: Chelsie Cortes MD Status: ADM IN Y Location: [place] [address] Discharge Date and Diagnosis - Problem List [...] Paxton Chris DO at 14:52 EDT Tel [phone], Service support , N.B. : The above [...] of hemoptysis after a return flight from [place] and was found to have acute bilateral [...] given w/in hospital stay or rx'd at md?: Yes Pt receive overlap for 5 days?: No Reason overlap not ordered, prescribed, or given for 5 days: Treatment Not Indicated Code Visit Inpatient E AND M: 53040 Disch Hosp 06/06/18 1122 <Electronically signed by Filiberto Bazan MD> Date Filiberto Bazan MD Cosign Signature (if applicable): Date CC: Chelsie Cortes MD; Filiberto Bazan MD Signed DISCHARGE INSTRUCTION Observed: 06/06/2018 Status: F Source: [place] 10:31 AM [facility] REPOSITORY [facility] Medical Records Department [address] [place] [address] Instructions for Home/Discharge Instructions 06/06/18 1028 MR#: [id number] Acct: [id number] Name: RUBÉN WILLOUGHBY Rep #: [id number] : 1965 52 From: Filiberto Bazan MD PCP: Chelsie Cortes MD Status: ADM IN - Discharge [...] Bazan MD> Date Filiberto Bazan MD CC: Chelsie Cortes MD ECHOCARDIOGRAM COMPLETE Observed: 06/05/2018 Status: F Source: [place] 4:28 PM [facility] REPOSITORY [facility] Cardiovascular Services [address] [place] [address] Echo Complete 06/05/18 1447 MR#: [id number] Acct: [id number] Name: RUBÉN WILLOUGHBY Rep #: [id number] : 1965 52 From: Odilon Suh MD Attending Dr: Mary Ellen Sanz MD Status: ADM IN Ordering Dr: Mary Ellen Sanz MD Date: 06/05/18 Location: [facility] Sex: M C Admitted: 06/04/18 Version 2 [...] Doppler Measurements AND Calculations MV E max jesse: 98.7 cm/sec Lat Peak E' Jesse: 12.5 cm/sec Med Peak E' Jesse: 12.0 cm/sec MV A max jesse: 82.4 cm/sec E/E' lat: 7.9 E/E' med: 8.2 MV E/A: 1.2 Ao V2 max: 176.1 cm/sec LV V1 max: 148.5 cm/sec PA V2 max: 138.7 cm/sec Ao max P.4 mmHg LV V1 max P.8 mmHg TR max jesse: 254.1 cm/sec TR max P.8 mmHg Interpretation [...] Ordering Physician: Mary Ellen Sanz Referring Physician: Chelsie Cortes MD Performed By: Jordyn Oliveros, AL[place], RVT 06/05/18 1627 Date Odilon Suh MD CC: Mary Ellen Sanz MD; Chelsie Cortes MD Date Dictated: 06/05/18 1447 Date Transcribed: 06/05/18 1625 Coal Trammer: Signed Observed: 06/05/2018 Status: F Source: [place] LEGIONELLA ANTIGEN 2:50 PM [facility] URINE REPOSITORY Legionella, UR Legionella Antigen result interpretation: Negative Presumptive negative for Legionella pneumophila serogroup 1 antigen in urine, suggesting no recent or current infection. Legionella Ag, Urine Negative (See interpretation below) Performed By: #### M300.4500 #### [facility] [address] [place], [place], [address] STREP Observed: 06/05/2018 Status: F Source: [place] PNEUMONIAE ANTIG(UR,CSF) 2:50 PM [facility] REPOSITORY S pneumo Ag URINE INTERPRETATION Negative Urine Presumptive negative for pneumococcal pneumonia, suggesting no current or recent pneumococcal infection. Infection due to S pneumoniae cannot be ruled out since the antigen present in the sample may be below the detection limit of the test. Strep pneumo Test Negative URINE (See interpretation below) Performed By: #### M300.4600 #### [facility] [address] [place], [place], [address] CBC-COMPLETE BLOOD CNT Collected: 06/05/2018 Status: F Source: [place] NO DIFF 7:30 AM [facility] REPOSITORY TYPE CODE TESTS RESULT OUT OF [...] MPV 9.9 Performed By: #### L100.0500 #### [facility] [address] [place], [place], [address] BASIC METABOLIC Collected: 06/05/2018 Status: F Source: QING PROFILE (BMP) 7:30 AM [facility] REPOSITORY TYPE CODE TESTS RESULT OUT OF [...] Normal 8 Performed By: #### L500.2500 #### [facility] [address] [place], [place], [address] PARTIAL THROMBOPLAST Collected: 06/05/2018 Status: F Source: QING TIME 7:30 AM [facility] REPOSITORY TYPE CODE TESTS RESULT OUT OF REFERENCE UNITS RANGE LAB L300.4310 24.1-36.2 Seconds High PTT 44.5 Performed By: #### L300.4310 #### [facility] [address] [place], [address] PARTIAL THROMBOPLAST Collected: 06/05/2018 Status: F Source: QING TIME 12:25 AM [facility] REPOSITORY TYPE CODE TESTS RESULT OUT OF REFERENCE UNITS RANGE LAB L300.4310 24.1-36.2 Seconds High PTT 48.2 Performed By: #### L300.4310 #### [facility] [address] [place], [address] PROTHROMBIN TIME W/INR Collected: 06/04/2018 Status: F Source: [place] 4:55 PM [facility] REPOSITORY TYPE CODE TESTS RESULT OUT OF RANGE REFERENCE UNITS LAB L300.4150 11.7-14.9 SECONDS Normal PROTIME 14.6 LAB L300.4200 Normal INR 1.1 Performed By: #### L300.3900, L300.4310 #### [facility] [address] [place], [address] PARTIAL THROMBOPLAST Collected: 06/04/2018 Status: F Source: [place] TIME 4:55 PM [facility] REPOSITORY TYPE CODE TESTS RESULT OUT OF REFERENCE UNITS RANGE LAB L300.4310 24.1-36.2 Seconds High PTT 85.9 Performed By: #### L300.3900, L300.4310 #### [facility] [address] [place], [address] EMERGENCY DEPARTMENT Observed: 06/04/2018 Status: F Source: [place] SUMMARY 4:40 PM [facility] REPOSITORY [facility] Medical Records Department [address] [place] [address] Emergency Department Summary 06/04/18 1528 MR#: [id number] Acct: [id number] Name: RUBÉN WILLOUGHBY Rep #: [id number] : 1965 52 From: Silverio Helton MD PCP: Chelsie Cortes MD Status: ADM IN - ER [...] recent history of traveling to and from [place] on an airplane. Review of systems otherwise [...] pulmonary emboli This note was generated with Paytrail dictation software. It may contain incorrect words, [...] problems, contact your Primary Care Provider. Call [facility] ([phone]) or report to the closest Emergency Room. Call 911 if necessary. 06/04/18 1640 <Electronically signed by Silverio Helton MD> Date Silverio Helton MD Cosigner Signature (If Indicated): Date CC: Chelsie Cortes MD HISTORY AND PHYSICAL Observed: 06/04/2018 Status: F Source: [place] EXAM 4:31 PM [facility] REPOSITORY [facility] Medical Records Department [address] [place] [address] History and Physical 06/04/18 1551 MR#: [id number] Acct: [id number] Name: DOMINIQUE WILLOUGHBYSOFYA Maharaj Rep #: [id number] : 1965 52 From: Filiberto Bazan MD PCP: Chelsie Cortes MD Status: ADM IN Y Location: [place] [id number] ADDENDUM by Filiberto Bazan MD on 06/04/18 at 1630 Code Visit Please disregard previous code for visit charges. 06/04/18 1631 <Electronically signed by Filiberto Bazan MD> Date Filiberto Bazan MD cc: Chelsie Cortes MD; Filiberto Bazan MD * Signed ADDENDUM by Filiberto Bazan MD on 06/04/18 at 1629 Code Visit OBSV E AND M: [id number] Initial observation care L2 06/04/18 1629 <Electronically signed by Filiberto Bazan MD> Date Filiberto Bazan MD cc: Chelsie Cortes MD; Filiberto Bazan MD * Signed [...] of hemoptysis this morning. Patient returned from [place] about 10 days ago and noted that [...] PE. Code Visit Inpatient E AND M: 10726 Subs Hosp L2 06/04/18 1617 <Electronically signed by Filiberto Bazan MD> Date Filiberto Bazan MD Cosigner Signature: Date (if applicable) CC: Chelsie Cortes MD; Filiberto Bazan MD Signed CBC W/DIFF, AUTOMATED Collected: 06/04/2018 Status: F Source: QING 1:25 PM [facility] TYPE CODE TESTS RESULT [...] Lymph 1.61 Performed By: #### L100.0100 #### [facility] [address] [place], [place], [address] BASIC METABOLIC Collected: 06/04/2018 Status: F Source: QING PROFILE (BMP) 1:25 PM [facility] REPOSITORY TYPE CODE TESTS RESULT OUT OF [...] 8 Performed By: #### L500.2500, L501.4010 #### [facility] [address] [place], [place], [address] TROPONIN-I Collected: 06/04/2018 Status: F Source: [place] 1:25 PM [facility] REPOSITORY TYPE CODE TESTS RESULT OUT OF RANGE REFERENCE UNITS LAB L501.4010 <0.045 ng/mL Normal < 0.015 TROPONIN-I Result Comment: TROPONIN-I EXPECTED VALUES <0.045 Negative 0.045 - 0.590 Consistent with Cardiac Damage > OR = 0.600 Critical Value Not every elevated troponin is indicative of [place]. These values should be used with clinical judgement in examining the patient's clinical picture for diagnosis. To establish a diagnosis of OH versus myocardial injury, there must be a demonstrated rise and/or fall in the troponin values, in addition to ischemic symptoms, EKG changes, new regional wall motion abnormality, and/or angiographical evidence. PLEASE NOTE: REFERENCE RANGES EDITED 18 Performed By: #### L500.2500, L501.4010 #### [facility] [address] [place], [address] CTA CHEST W/WO Observed: 06/04/2018 Status: F Source: [place] CONTRAST 1:09 PM [facility] RE[facility]IT[facility] Imaging Services [address] [place] [address] CTA Chest W/WO Contrast MR#: [id number] Acct: [id number] Name: RUBÉN WILLOUGHBY Rep #: [id number] : 1965 M 52 From: Paxton Chris DO PCP: Chelsie Cortes MD Status: REG ER Study: CTA Chest W/WO Contrast Date of Exam: 06/04/18 Exam# [id number] Ordering Dr: Silverio Helton MD STUDY: CTA [...] Paxton Chris DO at 14:52 EDT Tel [phone], Service support , N.B. : The above information has been verbally conveyed by Paxton Chris DO to Dr. Silverio Helton, Referring Physician, on 06/04/2018 14:56:21 (ET). CC: Chelsie Cortes MD; Silverio Helton [employer]: Signed ALLERGIES ALLERGIES DATE TYPE / CODE NAME / CODE REACTION SEVERITY SOURCE 08/24/2018 Drug No Known Unknown [facility] Allergy/416 Allergies/Z20896 Hospital 535891(SNOM 0388(RXNORM) Repository ED CT) Drug NO KNOWN [facility] Class/16342 ALLERGIES [place] 1003(SNOMED Repository CT) ENCOUNTERS ENCOUNTERS ADMIT/DISCHARGE ACCOUNT ADMITTING ENCOUNTER LOCATION SOURCE NUMBER CLASS 12/22/2018 [id number] Ambulatory [facility] ing:MRI Repository 12/05/2018/12/05/19 [id number] Ambulatory [address] ing:PT Repository 12/04/2018/12/05/19 [id number] Ambulatory [address] Repository 10/27/2018 [id number] Ambulatory [facility] ing:MTLAB Repository 08/24/2018/08/24/20 [id number] Emergency [address] ing:ED Repository 06/23/2018/06/23/20 [id number] Emergency [address] ing:ED Repository 06/17/2018 [id number] Ambulatory [facility] ing:MFPLAB Repository 06/04/2018/06/06/20 [id number] [place], Inpatient [address] ing:PCURoom: Repository [id number]: 1 06/04/2018 [id number] [place], Ambulatory BMSBuilding:Braeden De Los Santos MS.WIP [facility] Repository 06/04/2018/06/06/20 [id number] Ambulatory BMSBuilding:W Qing [address] [facility] Repository 06/04/2018/06/06/20 [id number] Ambulatory BMSBuilding:W Qing [address] [facility] Repository PAYERS PAYERS ENCOUNTER GUARANTOR PAYER SUBSCRIBER SOURCE 12/22/2018 RUBÉN J Primary JALYN L Qing [id number] Insurance:MEDICAL FORBESDOB: [address] Number: Repository [id number]: 330 [id number] [phone] (HP) Date:2429-67-89AI [address] [address]BQ: 12/22/2018 Secondary NOT GIVENUNK [place] Insurance:SELF PAY [facility] Number: Effective Repository Date:2018-12-16 12/05/2018 RUBÉN J Primary JALYN L Qing [id number] Insurance:MEDICAL FORBESDOB: [address] Number: Repository [id number]: 330 [id number] [phone] (HP) Date:7567-47-71NR [address] [address]ZI: 12/05/2018 Secondary NOT GIVENUNK [place] Insurance:SELF PAY [facility] Number: Effective Repository Date:2018-11-07 10/27/2018 RUBÉN J Primary JALYN L [place] [id number] Insurance:MEDICAL FORBESDOB: [address] Number: Repository [id number]: 330 [id number] [phone] (HP) Date:[id number] [address]IK: 10/27/2018 Secondary NOT GIVENUNK [place] Insurance:SELF PAY [facility] Number: Effective Repository Date:2018-10-27 08/24/2018 RUBÉN J Primary Jalyn L [place] [id number] Insurance:MEDICAL ForbesDOB: [facility] [place]: Repository [id number]: 330 [id number] [phone] (HP) Date:7728-53-37HK [address] [place] [address]HQ: 08/24/2018 Secondary NOT GIVENUNK [place] Insurance:SELF PAY [facility] Number: Effective Repository Date:2018-08-24 06/23/2018 RUBÉN J Primary Jalyn L Qing [id number] Insurance:MEDICAL ForbesDOB: [facility] 0821[place]18[place] Number: Repository [id number]: 330 [id number] [phone] (HP) Date:0640-12-59UC [address] [address]YW: 06/23/2018 Secondary NOT GIVENUNK [place] Insurance:SELF PAY [facility] Number: Effective Repository Date:2018-06-23 06/17/2018 RUBÉN J Primary Jalyn L Qing [id number] Insurance:MEDICAL ForbesDOB: [facility] 2147[place] Number: Repository [id number]: 330 [id number] [phone] (HP) Date:0475-55-48DV [address] [address]NS: 06/17/2018 Secondary NOT GIVENUNK [place] Insurance:SELF PAY [facility] Number: Effective Repository Date:2018-06-17 06/04/2018 RUBÉN J Primary Jalyn L Qing [id number] Insurance:MEDICAL ForbesDOB: [facility] 6701[place]58[place] Number: Repository [id number]: 330 [id number] [phone] (HP) Date:8985-50-60MJ [address] [address]RQ: 06/04/2018 Secondary NOT GIVENUNK Qing Insurance:SELF PAY [facility] Number: Effective Repository Date:2018-06-04 06/04/2018 Rubén J Primary Jalyn L [place] [id number] Insurance:MEDICAL ForbesDOB: [address], [place] Number: Repository [id number]: 330 [id number] [phone] (HP) Date:8761-05-81PU [address] [address]CY: 06/04/2018 Secondary NOT GIVENUNK [place] Insurance:SELF PAY [facility] Number: Effective Repository Date:2018-06-04 06/04/2018 RUBÉN J Primary Jalyn L [place] [id number] Insurance:MEDICAL ForbesDOB: [address], [place] Number: Repository [id number]: 330 [id number] [phone] (HP) Date:8918-61-52XA [address] [address]VJ: 06/04/2018 Secondary NOT GIVENUNK Qing Insurance:SELF PAY [facility] Number: Effective Repository Date:2018-06-04 06/04/2018 RUBÉN J Primary Jalyn L [place] [id number] Insurance:MEDICAL ForbesDOB: [address] Number: Repository [id number]: 330 [id number] [phone] (HP) Date:1716-84-98OK [address] [address]YJ: 06/04/2018 Secondary NOT GIVENUNK Qing Insurance:SELF PAY [facility] Number: Effective Repository Date:2018-06-04
== END ==
PROVIDERS: Family Provider Family Medicine; PCP Family Medicine; Referring Provider Family Medicine; Visit Provider Family Medicine
DX: M54.40 Lumbago with sciatica, unspecified side (principal)
CPT/HCPCS: 72148

== ENCOUNTER → 2019-04-01 | Outpatient (CLI) | payer OTHER, SELFPAY ==
[2019-04-01 17:42] LABS: Anion Gap 6 (5-15); BUN 19 mg/dL (7-18); BUN/Creat Ratio 15.4 RATIO (10-20); Calcium,Total 8.2 mg/dL (8.5-10.1); Chloride 107 mmol/L (98-107); Creatinine, Serum 1.23 mg/dL (0.70-1.30); EST Glomerular Filtration Rate 65 mL/min (>60); Est Glom Filt Rate - Afr Amer 79 mL/min (>60); Glucose 107 mg/dL (74-106); Potassium 4.2 mmol/L (3.5-5.1); Sodium Level 141 mmol/L (136-145)
== END | disposition home or self-care (01) ==
LOC: MFPLAB 16:01
PROVIDERS: Family Provider Family Medicine; PCP Family Medicine; Referring Provider Family Medicine; Visit Provider Family Medicine
DX: N28.9 Disorder of kidney and ureter, unspecified (principal)
CPT/HCPCS: 36415; 80048

== ENCOUNTER 2019-05-22 07:00 | Outpatient (RCR) | payer OTHER, SELFPAY ==
--- NOTE | 2019-04-13 19:01 | HP.PTEVAL ---
Patient's Visit Information RUBÉN WILLOUGHBY is a 53 year old M referred to Physical Therapy by Nathan Cortes MD with a diagnosis of CERVICAL DDD AND RADICULOPATHY. Date of Evaluation: 04/13/19 Physical Therapist: El Dawson PT, Cert MDT, OCS - Visit Plan Frequency: 2x /Week Duration: 4 Weeks Plan: INTERVENTIONS TO SUSAN EX'S,ICTX 16# 22# X15 MIN,US,CP,POSTURAL EX'S,MANUAL THERAPY - Subjective Findings: This 53 y/o male presents to physical therapy cervical pain with radiculopathy.Symptoms radiate to foearm/thumb. Patient has had cervical pain and radicular several years then 2 months developed tingling and burning in left forearm. Seen Dr Cortes pain MEDS/x-rays. Agrravating factors sitting,turning,flexion ,looking up . Alleviating factors moving. Patient sleeping good. Patient has tingling distal forarm . Patient denies WILSON/dizziness/nuasea. No trauma. Patient had chiropractor treatment. treatment. Patient had RTC surgery 5 years. Patient symptoms affect job demands ,ADL'S. Patient condition affect QOL and function. VOCATION: [employer]. SOCIAL: - Pain Right Neck Pain Intensity (Out of 10): 0 Pain Intensity Range: 10 Left Pain Intensity (Out of 10): 4 Pain Intensity Range: 10 Left Neck Pain Intensity (Out of 10): 4 - Objective POSTURE: mild foward headc. NEURO: c/o burning pain thumb ,C5-6-7 1/3 LEFT ,RIGHT 2/3 ,Mytome weakness C5. MMT: deltoid anterior 4-/5,bicep 4-/5,RTC 4/5,wrist flexors/extensors 4-/5,tricep 4/5. PALAPTION: unremrakable. CERVICAL ROM: flexion min/mod loss pain,retraction in loss pain,extension mod loss pain ,lateral flexion/rotation min/mod loss,protrusion min loss pain - Special Tests C/S Radiculapathy - Left Upper limb tension test: Negative C/S Radiculapathy - Right Upper limb tension test: Negative C/S Radiculapathy - Left Spurlings: Positive C/S Radiculapathy - Left Cervical distraction: Negative C/S Radiculapathy - Right Cervical distraction: Negative C/S Radiculapathy - Left Relief test: Negative C/S Radiculapathy - Right Relief test: Negative Sharp Carol: Negative Vertebral Artery Test: Negative Alar Ligament Test: Negative Cervical Sitting: Protrusion - Mechanical Response: No effect Cervical Sitting: Protrusion - Symptoms During Testing: Increases Cervical Sitting: Retraction - Mechanical Response: No effect Cervical Sitting: Retraction - Symptoms During Testing: Increases Cervical Sitting: Retraction - Symptoms After Testing: Worse Cervical Sitting: Sidebend Right - Mechanical Response: No effect Cervical Sitting: Sidebend Right - Symptoms During Testing: Increases Cervical Sitting: Sidebend Right - Symptoms After Testing: No worse Cervical Sitting: Sidebend Left - Mechanical Response: No effect Cervical Sitting: Sidebend Left - Symptoms During Testing: Decreases Cervical Sitting: Sidebend Left - Symptoms After Testing: Better Cervical Lying: Retraction - Mechanical Response: No effect Cervical Lying: Retraction - Symptoms During Testing: Increases Cervical Lying: Retraction - Symptoms After Testing: Worse - Goals Goal 1:: Independant with HEP Goal Time Frame: 4-6 Weeks Goal 2:: Patient improve posture for ADL'S without symptomolgy Goal Time Frame: 4-6 Weeks Goal 3:: Patient decrease cervical radiculopathy by 60 % or greater to improve function. Goal Time Frame: 4-6 Weeks Goal 4:: Patient cervical ROM for function of recovery Goal Time Frame: 4-6 Weeks Goal 5:: Patient improve neck dash disability score by 5 points or greater to improve QOL Goal Time Frame: 4-6 Weeks - Rehabilitation Potential Physical Therapy Diagnosis: Patients seems to have cervical radiculopathy with symptoms worse with flexion greater then extension ,along with C5 mytome weakness ,traction better ,thus nbenifit from skilled PT Rehabilitation Potential: Good - Anticipated Interventions Patient/Client Instruction: Educate patient on: Condition, Plan of Care For the Purpose of:: To decrease pain, To increase ROM, To improve muscle performance and motor function, To improve ability to perform ADL's, To improve ability of physical actions for home/community/work/leisure, To improve health of tissue, To decrease soft tissue restriction, To increase flexibility/ROM, To improve ability to perform tasks related to life management Therapeutic Exercise to Include: Strength training, Postural training, Flexibilty training, Active ROM, Susan Exercises For the Purpose of:: To decrease pain, To increase ROM, To improve muscle performance and motor function, To improve ability to perform ADL's, To increase tolerance to activity/condition/position, To improve ability of physical actions for home/community/work/leisure, To improve health of tissue, To decrease soft tissue restriction, To increase flexibility/ROM, To improve ability to perform tasks related to life management Manual Therapy Techniques to Include: Mobilization Comment: CERVICAL /THORACIC For the Purpose of:: To decrease pain, To increase ROM, To improve muscle performance and motor function, To improve ability to perform ADL's, To increase tolerance to activity/condition/position, To improve ability of physical actions for home/community/work/leisure, To improve health of tissue, To decrease soft tissue restriction TENS: Yes IF ES: Yes Cryotherapy (ice pack, ice massage): Yes Thermo therapy (hot pack): Yes Ultrasound (thermal/non thermal): Yes Intermittent cervical traction: Yes - 15#-22# For the Purpose of:: To decrease pain, To increase ROM, To improve nutrient delivery to tissue, To increase oxygenation perfusion, To improve health of tissue, To decrease soft tissue restriction Thank you for the opportunity to evaluate your patient. For Medicare and Medicare HMO plans, please review the plan of care and approve it. It will need to be FAXED BACK to us at [phone] for Medicare purposes. For Medicare only, by signing this I certify the plan of care. Please let me know if there are questions or concerns regarding this plan of care. Physician Signature: Date:
--- NOTE | 2019-08-07 13:22 | HP.PT.NRP ---
HP - Discharge Summary (1) - Patient Information RUBÉN WILLOUGHBY was seen in my office for initial evaluation on 04/13/19. The following Plan of Care was established for this patient: Initial Frequency: 2x /Week Initial Duration: 4 Weeks - Anticipated Interventions Patient/Client Instruction: Educate patient on: Condition, Plan of Care For the Purpose of:: To decrease pain, To increase ROM, To improve muscle performance and motor function, To improve ability to perform ADL's, To improve ability of physical actions for home/community/work/leisure, To improve health of tissue, To decrease soft tissue restriction, To increase flexibility/ROM, To improve ability to perform tasks related to life management Therapeutic Exercise to Include: Strength training, Postural training, Flexibilty training, Active ROM, Yazmin Exercises For the Purpose of:: To decrease pain, To increase ROM, To improve muscle performance and motor function, To improve ability to perform ADL's, To increase tolerance to activity/condition/position, To improve ability of physical actions for home/community/work/leisure, To improve health of tissue, To decrease soft tissue restriction, To increase flexibility/ROM, To improve ability to perform tasks related to life management Manual Therapy Techniques to Include: Mobilization Comment: CERVICAL /THORACIC For the Purpose of:: To decrease pain, To increase ROM, To improve muscle performance and motor function, To improve ability to perform ADL's, To increase tolerance to activity/condition/position, To improve ability of physical actions for home/community/work/leisure, To improve health of tissue, To decrease soft tissue restriction TENS: Yes IF ES: Yes Cryotherapy (ice pack, ice massage): Yes Thermo therapy (hot pack): Yes Ultrasound (thermal/non thermal): Yes Intermittent cervical traction: Yes - 15#-22# For the Purpose of:: To decrease pain, To increase ROM, To improve nutrient delivery to tissue, To increase oxygenation perfusion, To improve health of tissue, To decrease soft tissue restriction This patient was last seen in our office . Pertinent comments regarding their Physical therapy will appear below: At this point I will be discontinuing this patient from physical therapy. I would be happy to see this patient again in the future if found appropriate by the physician. Thank you! El Dawson, PT, Cert MDT, OCS
== END 2019-05-22 19:00 | disposition home or self-care (01) ==
LOC: PT 07:00
PROVIDERS: Family Provider Family Medicine; PCP Family Medicine; Referring Provider Family Medicine; Visit Provider Family Medicine
DX: M50.30 Other cervical disc degeneration, unspecified cervical region (principal); M54.10 Radiculopathy, site unspecified
CPT/HCPCS: 97012; 97035; 97161; 97530

== ENCOUNTER → 2019-07-29 | Outpatient (CLI) | payer OTHER, SELFPAY ==
[2019-07-29 14:11] LABS: Absolute Lymphocyte Count 1.59 X10^3/uL (0.83-4.51); Basophil# 0.03 X10^3/uL; Basophil% 0.5 % (0-1); Eosinophil# 0.08 X10^3/uL; Eosinophils% 1.3 % (0-5); Hematocrit 42.7 % (40-54); Hemoglobin 14.3 g/dL (13.0-16.5); Lymphocyte # 1.59 X10^3/ul (4.0); Mean Corp Hgb Conc 33.5 g/dL (32-36); Mean Corpuscular Hgb 31.3 pg (27.0-32.0); Mean Corpuscular Volume 93.4 fL (80-94); Mean Platelet Vol. 10.4 fl (6.2-12.0); Monocyte# 0.62 X10^3/uL; Monocyte% 9.7 % (0-10); NRBC Flagged by Analyzer 0 % (0-5); Neutrophil # 4.01 X10^3/uL (2.7-7.7); Neutrophil % 62.9 % (47-70); Platelet Count 178 K/mm3 (150-450); RBC Distribution Width CV 12.2 % (11.6-14.6); RBC Distribution Width SD 42.2 fl (35.1-43.9); Red Blood Count 4.57 M/mm3 (4.6-6.2); White Blood Count 6.4 K/mm3 (4.4-11.0)
[2019-07-29 14:31] LABS: Uric Acid 6.5 mg/dL (3.5-7.2)
== END | disposition home or self-care (01) ==
PROVIDERS: Family Provider Family Medicine; PCP Family Medicine; Referring Provider Family Medicine; Visit Provider Nurse Practitioner Family
DX: M25.562 Pain in left knee (principal)
CPT/HCPCS: 36415; 84550; 85025

== ENCOUNTER 2019-07-31 12:39 | Emergency (ER) | payer OTHER, SELFPAY ==
[2019-07-31 12:39] VITALS: BP 142/91; PULSE 58; RESP 17; TEMP 36.2; O2SAT 99; BMI 26.6
--- NOTE | 2019-07-31 12:56 | VDLE_ITS ---
Reason For Study: Pain Procedure LEFT Exam performed portable in ED. GSV is normal. A preliminary report was called and/or faxed CFV is compressible, spontaneous, phasic, to [place]. competent, and demonstrates normal augmentation. FV is compressible, spontaneous, phasic, competent and demonstrates normal augmentation. POP V is compressible, spontaneous, phasic, competent and demonstrates normal augmentation. T/P Trunk is compressible. PTV is compressible. LT PerV is compressible. Interpretation Summary Deep veins of the left lower extremity are patent and compressible segmentally. There is no evidence of left lower extremity deep vein thrombosis. Valvular competence appears intact within the proximal deep venous system on the left . The left great saphenous vein appears patent and compressible segmentally. Ordering Physician: Riley Contreras Referring Physician: Jam Cortes MD Performed By: Genevieve Morgan RVT
--- NOTE | 2019-07-31 12:56 | RAD_ITS ---
STUDY: X-RAY - LEFT KNEE REASON FOR EXAM: Male, 53 years old. 3 day history of pain. No TECHNIQUE: 4 view(s) of the knee. COMPARISON: None. FINDINGS: Normal visualized distal femur. Avulsion fracture of the anterior tibial tuberosity most likely secondary to old [place]-Schlatter disease. Normal proximal tibiofibular articulation. There is mild degenerative arthrosis of the medial femorotibial compartment. Normal lateral femorotibial compartment. Normal patellofemoral articulation. Proximal pretibial soft tissue swelling. RAD/Knee 4 or More Views IMPRESSION: Degenerative arthrosis. Proximal pretibial soft tissue swelling. Evidence of old [place]-Schlatter disease. Electronically Signed: Krunal Quintanilla, at 13:46 EDT , Service support ,
--- NOTE | 2019-07-31 13:33 | ED.VISSUMM ---
- ER Visit Summary Date of Service: 07/31/19 Chief Complaint: Left leg swelling History of Present Illness: The patient is a 53 M who has had left leg swelling. Is been ongoing for the past 4 days. He denies any injury. The pain starts at the tibial tuberosity and is worse with walking. He denies any falls. 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 He is currently off of all blood thinning medications per his doctors. He has no chest pain or shortness of breath. He saw his PCP 2 days ago and they did a CBC and uric acid levels which were normal. They put him on a prophylactic antibiotic in case it was an infectious etiology. Physical Examination: Vital signs are reviewed. Left knee reveals tenderness of the tibial tuberosity. There is no erythema. There is no knee swelling. He does have full range of motion with pain. No pain with smaller range of motion. There is swelling of the left leg below the knee down to the ankle. No erythema of the lower leg. Test Results: Left knee x-ray interpreted by myself and radiologist as having pretibial swelling as well as arthrosis which is degenerative. DVT study is negative Emergency Department Course and Treatment: The patient has no DVT. He has no pain with range of motion of the knee joint. I feel this is likely a soft tissue infection. His doctor started him on an antibiotic this morning. He will continue this at home. He has normal vital signs. I do not feel any laboratory studies are necessary. He will call his doctor on Saturday for follow-up. Treatment Plan: [] Disposition: Discharge Impression: Left lower leg cellulitis This note was generated with Speedshape dictation software. It may contain incorrect words, spelling, and punctuation that were not noted in review of the chart prior to signing ED Disposition - Plan for ED Patient: Referrals: Nathan Cortes MD [Primary Care Provider] -
--- NOTE | 2019-07-31 13:56 | ED.DEP ---
ED Disposition - Plan for ED Patient: Disposition: Home or Assisted Living Instructions: Cellulitis Referrals: Nathan Cortes MD [Primary Care Provider] -
== END 2019-07-31 14:17 | disposition home or self-care (01) ==
PROVIDERS: Emergency Provider Emergency Medicine; Family Provider Family Medicine; PCP Family Medicine
DX: L03.116 Cellulitis of left lower limb (principal); Z86.718 Personal history of other venous thrombosis and embolism; Z86.711 Personal history of pulmonary embolism; Z72.0 Tobacco use
CPT/HCPCS: 73564; 93971; 99283; A4216

== ENCOUNTER → 2019-10-02 | Outpatient (CLI) | payer OTHER, SELFPAY ==
--- NOTE | 2019-10-02 10:45 | MRI_ITS ---
STUDY: MRI CERVICAL SPINE WITHOUT CONTRAST REASON FOR EXAM: Male, 54 years old. LEFT Neck and shoulder pain, radiates to hand. TECHNIQUE: Standardized fat and water weighted pulse sequences were obtained in the sagittal and axial planes. COMPARISON: None FINDINGS: The examination is degraded by motion artifact. Normal foramen magnum and brainstem-cervical cord junction. Normal craniovertebral junction. Normal cervical lordosis. C2-3: There is minimal disc space narrowing and endplate spondylosis. There is no significant disc herniation, central canal or foraminal stenosis. C3-4: There is minimal disc space narrowing and endplate spondylosis. There is no significant disc herniation, central canal or foraminal stenosis. C4-5: There is minimal disc space narrowing and endplates spondylosis. Minimal Minimal disc osteophyte complex without significant central canal stenosis. Uncovertebral facet arthropathy with mild right and moderate left foraminal stenosis. There is left facet edema. C5-6: There is moderate disc space narrowing and endplates spondylosis. Minimal disc osteophyte complex without significant central canal stenosis. Uncovertebral and facet arthropathy with mild right and moderate left foraminal stenosis C6-7: There is moderate disc space narrowing and endplates spondylosis. Minimal disc osteophyte complex without significant central canal stenosis. Uncovertebral arthropathy with mild right and moderate left foraminal stenosis. C7-T1: There is minimal disc space narrowing and endplate spondylosis. There is no significant disc herniation, central canal or foraminal stenosis. Normal cervical cord. MRI/Spine Cervical (Routine) IMPRESSION: C4/C5: Moderate left foraminal stenosis. Left facet edema. C5/C6: Moderate left foraminal stenosis. C6/C7: Moderate left foraminal stenosis. Electronically Signed: Daniel White MD at 11:03 EDT Tel , Service support ,
== END | disposition home or self-care (01) ==
LOC: MRI 10:11
PROVIDERS: Family Provider Family Medicine; PCP Family Medicine; Referring Provider Anesthesiology Pain Medicine; Visit Provider Anesthesiology Pain Medicine
DX: M54.2 Cervicalgia (principal); M79.603 Pain in arm, unspecified
CPT/HCPCS: 72141

== ENCOUNTER → 2019-12-15 08:34 | Outpatient (CLI) | payer OTHER, SELFPAY ==
[2019-12-15 08:30] VITALS: BMI 27.2
--- NOTE | 2019-12-15 08:35 | RAD_ITS ---
STUDY: X-RAY - CERVICAL SPINE REASON FOR EXAM: Male, 54 years old. CHRONIC NECK PAIN, RADIATES DOWN LEFT ARM TECHNIQUE: 4 view(s) of the cervical spine were obtained. COMPARISON: 02 October 2019 FINDINGS: Normal anterior atlantoaxial articulation. Normal odontoid process. There are expected age-related changes. The spine is radiographically stable between flexion and extension Normal cervical lordosis. Normal vertebral bodies and endplates. Normal disc space heights. Normal visualized intervertebral neuroforamina. The soft tissue structures are unremarkable. Appearance is similar to prior RAD/Cerv Spine 4 or 5 Views IMPRESSION: Unremarkable x-ray examination of the visualized cervical spine. Radiographic cervical spinal stability. Electronically Signed: Modesta Hdez, at 17:06 EST Tel , Service support ,
== END ==
PROVIDERS: Family Provider Family Medicine; PCP Family Medicine; Referring Provider Orthopaedic Surgery; Visit Provider Orthopaedic Surgery
DX: M54.2 Cervicalgia (principal)
CPT/HCPCS: 72050

== ENCOUNTER 2020-01-29 07:00 | Outpatient (RCR) | payer OTHER, SELFPAY ==
[2019-12-15 08:30] VITALS: BMI 27.2
--- NOTE | 2019-12-28 16:00 | HP.PTEVAL_ITS ---
Patient's Visit Information RUBÉN WILLOUGHBY is a 54 year old M referred to Physical Therapy by Jennifer Diaz MD with a diagnosis of CERVICAL RADICULOPATHY. Date of Evaluation: 12/28/19 Physical Therapist: El Dawson, PT, Cert MDT, OCS - Visit Plan Frequency: 2x /Week Duration: 4 Weeks Plan: PT INTERVENTIONS ICTX 18-26# X15MIN ,US ,ESTIM,MANUAL THERAPY ,CERVICAL/POSTURAL EX'S - Subjective Findings: This 54 y/o male presnets to physical therapy with cervical radiculopathy. Patient has cervical radiculopathy about 1 year. Patient has PT in past responded well. Patient has MRI and x-rays which showed stenosis. Alina ent seen DR Terrazas if did surgery would do cervical fusion ,recommended gabepetin.. Patient has cervical pain with LUE radiculopathy worse with function and job demands. Loctaion left UT to thumb -index finger. Aggravating factors head postion looking up ,to leftside,lifting arms OH ,lifting. Alleviating resting,MEDS.C/O parathesai/tingling,burning to thumb. Denies WILSON/nausea/tiinnitus/. Tried epidural injections didnt help. Patient symptoms affects job demands,ADL'S,function. Patient symptoms affects. QOL. SOCIAL: . VOCATION: [employer] - Pain Left Neck Pain Intensity (Out of 10): 3 Pain Intensity Range: 10 Left Shoulder Pain Intensity (Out of 10): 3 Pain Intensity Range: 10 - Objective POSTURE: mild foward posture. NEURO: reflexes 2/3 C5-6-7,c/o parathesia/tingling /burning,. PALAPTION: tender UT. 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 BUE: AROM WFL. MMT: 5/5 right HE ,left 4/5 except deltoid 4- /4. CERVICAL ROM: flexion min/mod loss pain loss,extension mod loss pain,lateral flexion mod loss pain,rotation mod loss. ASSESSORY MOTION: MOD LIMITED - Special Tests C/S Radiculapathy - Left Upper limb tension test: Negative C/S Radiculapathy - Right Upper limb tension test: Negative C/S Radiculapathy - Left Spurlings: Positive C/S Radiculapathy - Right Spurlings: Negative C/S Radiculapathy - Left Cervical distraction: Negative C/S Radiculapathy - Right Cervical distraction: Negative C/S Radiculapathy - Left Relief test: Negative C/S Radiculapathy - Right Relief test: Negative Sharp Carol: Negative Vertebral Artery Test: Negative Alar Ligament Test: Negative - Goals Goal 1:: Independant with posture for job demnads. Goal Time Frame: 4-6 Weeks Goal 2:: Independant with HEP. Goal Time Frame: 4-6 Weeks Goal 3:: Decrease cervical radiculopathy by 50 % or > to improve function. Goal Time Frame: 4-6 Weeks Goal 4:: Patient improve neck owestry score by 5 points or > to improve QOL Goal Time Frame: 4-6 Weeks Goal 5:: Patient to improve ADLS' and job demands with less symptoms Goal Time Frame: 4-6 Weeks - Rehabilitation Potential Physical Therapy Diagnosis: This patient has cervical radiculopathy with pain in arm with cervical postion ,movemnts ,strength deficits and postural deficits ,thus BENIFIT FROM SKILLED PT Rehabilitation Potential: Good - Anticipated Interventions Thank you for the opportunity to evaluate your patient. For Medicare and Medicare HMO plans, please review the plan of care and approve it. It will need to be FAXED BACK to us at [phone] for Medicare purposes. For Medicare only, by signing this I certify the plan of care. Please let me know if there are questions or concerns regarding this plan of care. Physician Signature: Date:_
--- NOTE | 2020-01-29 07:27 | HP.PTDCSUM_ITS ---
HP - PT D/C Summary It has been my pleasure to treat RUBÉN WILLOUGHBY under orders from Jennifer Diaz MD, for the diagnosis of CERVICAL RADICULOPATHY for a total of 9 visit(s). Discharge Date: 01/29/20 Please see the following information for a summary of their discharge status. - Subjective Subjective: Doing alot better with getting stronger.Less pain for job demands - Pain Left Neck Pain Intensity (Out of 10): 0 Left Shoulder Pain Intensity (Out of 10): 0 - Overall Improvement % Improvement: 50 - Objective Objective/Function: POSTURE: WFL. MMT: 4/5 BUE. 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 CERVICAL ROM: fflexion WFL,extension mod loss ,lateral flexion /rotation/min/mod loss - Goals Goal 1:: Independant with posture for job demnads. Goal Progress: Goal Met Goal 2:: Independant with HEP. Goal Progress: Goal Met Goal 3:: Decrease cervical radiculopathy by 50 % or > to improve function. Goal Progress: Goal Met Goal 4:: Patient improve neck owestry score by 5 points or > to improve QOL Goal Progress: Goal Met Goal 5:: Patient to improve ADLS' and job demands with less symptoms Goal Progress: Goal Met - Plan Plan: D/C HEP AND HOME TRACTION UNIT - D/C Information Discharge Comments: HEP AND HOME TRACTION CERVICAL If there are questions or concerns regarding this patient's physical therapy, please feel free to call me at [phone]. Thank you for the referral of this patient. Sincerely, El Dawson, PT, Cert MDT, OCS
== END 2020-01-29 19:00 | disposition home or self-care (01) ==
LOC: PT 07:00
PROVIDERS: Family Provider Family Medicine; PCP Family Medicine; Referring Provider Orthopaedic Surgery; Visit Provider Orthopaedic Surgery
DX: M54.12 Radiculopathy, cervical region (principal)
CPT/HCPCS: 97012; 97110; 97162; 97530

== ENCOUNTER → 2020-07-18 | Outpatient (CLI) | payer OTHER, SELFPAY ==
[2020-05-10 08:07] VITALS: BMI 26.6
[2020-07-18 18:07] LABS: Hematocrit 41.5 % (40-54); Hemoglobin 14.1 g/dL (13.0-16.5); Mean Corpuscular Hgb 31.7 pg (27.0-32.0); Mean Corpuscular Volume 93.3 fL (80-94); Mean Platelet Vol. 10.5 fl (6.2-12.0); Platelet Count 195 K/mm3 (150-450); RBC Distribution Width SD 41.1 fl (35.1-43.9); Red Blood Count 4.45 M/mm3 (4.6-6.2); White Blood Count 5.3 K/mm3 (4.4-11.0)
[2020-07-18 18:26] LABS: Vitamin B12 324 pg/mL (211-911); Vitamin D,25 Hydroxy 39.3 ng/mL
[2020-07-18 18:39] LABS: ALB/GLOB Ratio 1.2 RATIO (0.9-2.4); AST(SGOT) 17 U/L (15-37); Alanine Aminotransfer ALT/SGPT 36 U/L (16-61); Albumin, Serum 3.9 g/dL (3.2-5.0); Alkaline Phosphatase 112 U/L (45-117); Anion Gap 7 (5-15); BUN 17 mg/dL (7-18); BUN/Creat Ratio 14.7 RATIO (10-20); Calcium,Total 8.2 mg/dL (8.5-10.1); Chloride 108 mmol/L (98-107); Creatinine, Serum 1.16 mg/dL (0.70-1.30); EST Glomerular Filtration Rate 69 mL/min (>60); Est Glom Filt Rate - Afr Amer 84 mL/min (>60); Globulin 3.3 g/dL (2.2-4.2); Glucose 93 mg/dL (74-106); Protein, Total 7.2 g/dL (6.4-8.2); Sodium Level 139 mmol/L (136-145); Thyroid Stim Hormone (TSH) 0.94 uIU/mL (0.358-3.74)
== END | disposition home or self-care (01) ==
LOC: MFPLAB 15:37
PROVIDERS: PCP Family Medicine; Referring Provider Family Medicine; Visit Provider Family Medicine
DX: R53.83 Other fatigue (principal)
CPT/HCPCS: 36415; 80053; 82306; 82607; 84403; 84443; 85027

== ENCOUNTER 2021-02-20 07:13 | Emergency (ER) | payer OTHER, SELFPAY ==
[2021-02-13 13:57] VITALS: BMI 28.8
[2021-02-20 07:16] VITALS: BP 154/95; PULSE 74; RESP 14; TEMP 36.8; O2SAT 100; BMI 28.7
[2021-02-20 07:20] VITALS: TEMP 36.8; BMI 28.6
[2021-02-20 07:23] VITALS: BP 154/95; PULSE 74; RESP 14; TEMP 36.8; O2SAT 100
--- NOTE | 2021-02-20 07:24 | RAD_ITS ---
STUDY: X-RAY - LEFT HAND, ATTENTION . FINGER REASON FOR EXAM: Male, 55 years old. Smashing injury -- middle TECHNIQUE: 3 view(s) of the finger were obtained. COMPARISON: None. FINDINGS: Normal metacarpal head. Normal metacarpophalangeal joint. Normal proximal phalanx. Normal middle phalanx. Comminuted nondisplaced fracture of the tuft of the distal phalanx of the third digit. Normal proximal interphalangeal joint. Normal distal interphalangeal joint. Soft tissue swelling. RAD/Finger(s) Min 2 Views IMPRESSION: Nondisplaced comminuted fracture of the tuft of the distal phalanx of the third digit with overlying soft tissue swelling. Electronically Signed: Krunal Quintanilla MD at 8:55 EDT , Service support ,
--- NOTE | 2021-02-20 07:26 | ED.VIS.UPPEX ---
History of Present Illness Chief Complaint: Upper Extremity Injury Informant: Patient Occurred: Today - JPTA Mechanism/Context: Injury Context: Sudden Onset Timing: Continuous Quality of Pain: Throbbing Location: left middle finger Current Severity: Severe Maximum Severity: Severe Worsened by: moving, touching Relieved by: leaving alone Associated Symptoms: Negative for: Parasthesia, Weakness, Loss of Funtion Narrative: Krbrf-jflq-koejfwca healthy 55-year-old was at work, he was working on a machine and states that he moved a hose and this caused tines to suddenly clamped down crushing his middle fingertip. Has had some bleeding with this. Takes no antiplatelet or anticoagulant medications, or any medicines other than amoxicillin which he currently is on he thinks for another week because of a different left finger that was infected and drained. That finger is doing well now. Tetanus Immunization: Unknown Past Medical History - Allergies and Home Meds Allergies/Adverse Reactions: Allergies No Known Allergies Allergy (Verified 02/20/21 07:16) Primary Care Physician: Nathan Cortes MD [Primary Care Provider] - El Lucas MD [STAFF PHYSICIAN] - 3-5 Days (call for appt to be seen as soon as able) Past Medical History: None Surgical History: - - Rotator cuff repair; left meniscus removal. Smoking Status: Never smoker - Family History Paternal Family History: Family History (Last Updated 02/13/21 @ 13:42 by Beulah Harper) Other Cancer Heart disease Family History: Reports: Cancer - Prostate Sibling Family History: Family History (Last Updated 02/13/21 @ 13:42 by Beulah Harper) Other Cancer Heart disease Family History: Reports: Cancer, Hypertension Review of Systems General: Denies: Chills, Fever, Sweats Musculoskeletal: Reports: Extremity Pain Skin: Reports: Wounds. Denies: Rash Neurological: Denies: Headache, Weakness, Numbness Physical Exam Vital Signs/Narrative: Vital Signs Temp Pulse Resp BP Pulse Ox 02/20/21 07:23 98.2 F 74 14 154/95 H 100 02/20/21 07:20 98.2 F 02/20/21 07:16 98.2 F 74 14 154/95 H 100 General: Well nourished, Well developed, - - NAD Head: Normocephalic, Atraumatic Extremeties: Crush injury without exposed bone with relatively brisk venous oozing from all aspects of the distal left middle finger. Able to flex at the DIPJ and extend. Nail has been avulsed. See below for wound details which are limited to the distal phalanx of the left middle finger only. With regards to the left index finger, there is a subungual discoloration that is linear, no sign of any active infection, erythema, tenderness, or discharge. Appears well-healed. Skin: Normal color, No rash, Trauma - left middle fingertip wound - well-perfused crush wound; gross finger structure intact, but distal tissue loss, nail completely avulsed, no repairable lacerations. nail bed mostly intact proximally, nail root/cuticle appears practically normal. Neurological: Alert, Oriented x3, Cranial nerves II-XII grossly intact, Normal Strength, Normal Sensation, Normal Gait Psychological: Normal affect, Normal Mood Diagnostic/Tx/Re-eval - Medical Decision Making On my interpretation, 3 view x-ray of the left middle finger shows a minimally displaced comminuted fracture of the distal tuft only. There is nothing repairable here. We soaked the injured area in saline with chlorhexidine, followed by bacitracin, nonstick dressing, and bulky gauze. Attempted to place a thimble splint however we do not have any so an AlumaFoam cage was placed over the bulky dressing, I advised the patient that using this prior to follow-up is optional, just tell protect the fingertip, we discussed dressing changes, I think the antibiotic that he is on right now is okay and does not need to have that replaced or extended if he indeed has about a week of it left. I think there is a possibility that although there is soft tissue around the bone, the majority of the soft tissue injury extends proximal to the end of the tuft, and I think he should follow-up with plastics because there is the possibility that this may need a revision. Discussed all this with the patient, he was given work restrictions and is comfortable with the plan. ED Disposition - Plan for ED Patient: Disposition: Home or Assisted Living Diagnosis: Crushing injury of left middle finger, initial encounter, Open fracture of distal phalanx of left middle finger Instructions: ED Crush Injury, Hand Prescriptions: traMADol [Ultram] 50 mg PO Q4H PRN PRN 3 Days #12 tablet PRN Reason: Pain Transmission Status: Sent to [facility] Referrals: Nathan Cortes MD [Primary Care Provider] - El Lucas MD [STAFF PHYSICIAN] - 3-5 Days (call for appt to be seen as soon as able) Additional Instructions: Continue your amoxicillin as prescribed until gone. Change finger dressing as needed, including when bloody; this may need to be several times per day early on. Try to leave the nonstick part against the skin if possible, and apply a new thin layer of antibiotic ointment with each dressing change.
[2021-02-20] MEDS: Diphth,Pertuss(Acell),Tet Vac 0.5 ML Vial IM (07:30)
[2021-02-20] MEDS: Naproxen 500 MG Tablet PO (07:30)
[2021-02-20] MEDS: traMADol 50 MG Tablet PO (07:30)
[2021-02-20 08:29] VITALS: PULSE 89; RESP 17; O2SAT 98
== END 2021-02-20 08:30 | disposition home or self-care (01) ==
PROVIDERS: Emergency Provider Emergency Medicine; PCP Family Medicine
DX: S62.663B Nondisplaced fracture of distal phalanx of left middle finger, initial encounter for open fracture (principal); Z79.2 Long term (current) use of antibiotics; W31.89XA Contact with other specified machinery, initial encounter; Y93.89 Activity, other specified; Y92.89 Other specified places as the place of occurrence of the external cause; Y99.0 Civilian activity done for income or pay
CPT/HCPCS: 73140; 90715; 99283

== ENCOUNTER 2022-03-07 12:34 | Outpatient (CLI) | payer OTHER, SELFPAY ==
--- NOTE | 2022-03-07 12:39 | RAD_ITS ---
STUDY: X-RAY - RIGHT ANKLE REASON FOR EXAM: Male, 56 years old. Anterior ankle pain. No recent injury. TECHNIQUE: 4 view(s) of the ankle. COMPARISON: None. FINDINGS: Normal visualized distal tibia and fibula. Normal medial and lateral malleoli. Normal tibiotalar articulation and ankle mortise. Normal visualized talus and calcaneus. The visualized subtalar, talonavicular, calcaneocuboid and tarsal articulations are normal. The soft tissue structures are unremarkable. RAD/Ankle min 3 Views IMPRESSION: Normal x-ray examination of the ankle. Electronically Signed: Krunal Quintanilla MD at 15:36 EDT ,
== END 2022-03-07 23:59 | disposition home or self-care (01) ==
LOC: MTRAD 12:35
PROVIDERS: PCP Family Medicine; Referring Provider Family Medicine; Visit Provider Family Medicine
DX: M25.571 Pain in right ankle and joints of right foot (principal)
CPT/HCPCS: 73610; 96374; 96375

== ENCOUNTER 2022-12-03 12:30 | Emergency (ER) | payer OTHER, SELFPAY ==
[2022-12-03 12:30] VITALS: BP 190/125; PULSE 92; RESP 20; TEMP 36.4; O2SAT 99; BMI 27.8
--- NOTE | 2022-12-03 13:38 | VDLE_ITS ---
Reason For Study: Pain Procedure LEFT This is a venous duplex using B-mode, color GSV is normal. flow and spectral Doppler. CFV is compressible, spontaneous, phasic, Exam performed portable in ED. competent, and demonstrates normal A preliminary report was called and/or faxed augmentation. to Dr. Lund. FV is compressible, spontaneous, phasic, competent and demonstrates normal augmentation. PTV is compressible. LT PerV is compressible. Lt GastrocV is dilated and non compressible consistent with acute DVT Lt PopV and Lt T/P Trunk are partially compressible with bright intraluminal echoes consistent with chronic DVT. VL/Venous Duplex US, Unilateral Interpretation Summary Acute deep vein thrombosis is noted in the left gastrocnemius vein. Chronic deep vein thrombosis is noted in the left popliteal and tibio-peroneal trunk veins. Ordering Physician: Michelle Atkinson Referring Physician: Jam Cortes Performed By: Marian Washington, ALES[place], RVT
--- NOTE | 2022-12-03 13:43 | EX.ED.DYSGE1 ---
HPI <CALDERON Grande - Last Filed: 12/03/22 16:47> History of Present Illness Chief Complaint: Lower Extremity Injury Narrative Narrative: Patient presents today with pain to his left calf that started last night. He states the pain is intermittent but has increased in severity. There is no edema or erythema to the area. Patient has a history of blood clots after having DVT in his left leg in the past and has also had a PE which were 2 separate occasions. He is not on any blood thinners and was told he just needs to make sure he is not sedentary for a long period of time. Patient states he has been more sedentary these past 2 weeks and was just in the car for 3 hours on Saturday. He does not have a clotting disorder that he is aware of. He denies injury to the left leg, fever, chills, chest pain, and shortness of breath. PFSH <CALDERON Grande - Last Filed: 12/03/22 16:47> PFS Medical History History of pulmonary embolus (PE) Home Medications amoxicillin 875 mg-potassium clavulanate 125 mg tablet 1 tab PO Q12H ##20 02/13/21 [Rx Last Taken Unknown] apixaban 5 mg tablet (Eliquis) 5 mg PO BID #74 tabs 12/03/22 [Rx Last Taken Unknown] Allergy/AdvReac Type Severity Reaction Status Date / Time No Known Allergies Allergy Verified 12/03/22 12:32 Family History Other Cancer Heart disease Surgical History H/O repair of left rotator cuff History of meniscectomy of left knee Social History Smoking Status: Light Smoker (<10/day) ROS <CALDERON Grande - Last Filed: 12/03/22 16:47> ROS ED Constitutional Constitutional ED: Denies chills, fever(s) or sweats Eyes Eyes: Denies blurry vision or change in vision ENT ENT ED: Denies rhinorrhea or sore throat Cardiovascular Cardiovascular: Denies chest pain, palpitations or racing heartbeat Respiratory/Chest Respiratory/Chest: Denies cough, dyspnea or dyspnea on exertion Gastrointestinal Gastrointestinal: Denies abdominal pain, diarrhea, nausea or vomiting Genitourinary Genitourinary ED: Denies dysuria, hematuria or urinary frequency Musculoskeletal Musculoskeletal: Denies arthralgias, back pain or neck pain Integumentary Denies abscess, Abrasions or rash Neurologic Neurologic: Denies headache(s), paresthesias or weakness Psychiatric Psychiatric: Denies anxiety, depression or suicidal ideation EXAM <CALDERON Grande - Last Filed: 12/03/22 16:47> Physical Exam Const Vital Signs: 12/03/22 12:30 Temperature 97.6 F L Temperature Source Temporal Pulse Rate 92 Respiratory Rate 20 H Blood Pressure 190/125 H Blood Pressure Mean 146 Pulse Ox 99 Oxygen Delivery Method Room Air Positive well nourished and well developed General Appearance ED: well developed and NAD HEENT Reports moist mucous membranes Negative for trauma Eyes PERRL and EOMs intact bilaterally Neck supple Chest Wall inspection of chest normal Resp normal respiratory effort and clear to auscultation bilaterally Cardio regular rate, regular rhythm and no murmurs GI non-tender, non-distended and no masses Palpation: soft Extremity normal to inspection Extremity Narrative: No edema or erythema to the left lower leg. General Extremety ED: Negative for edema General Extremity: Negative for edema Neuro oriented x3, CN's II-XII intact bilaterally and no sensory deficits noted Sensorium / Orientation: alert Motor Exam: strength 5/5 throughout Psych mental status grossly normal Skin no rashes or lesions noted, no wounds and skin turgor normal <Dr. Huseyin Lund MD - Last Filed: 12/03/22 15:38> Physical Exam Const Vital Signs: 12/03/22 12:30 Temperature 97.6 F L Temperature Source Temporal Pulse Rate 92 Respiratory Rate 20 H Blood Pressure 190/125 H Blood Pressure Mean 146 Pulse Ox 99 Oxygen Delivery Method Room Air MDM <CALDERON Grande - Last Filed: 12/03/22 16:47> [facility] MDM Narrative Medical decision making narrative: Patient has history of a left lower leg DVT as well as a PE. He states that DVT occurred after a surgery on the left lower leg. The PE occurred after a flight to [place]. Patient is not on any blood thinners and was told he does not have a clotting disorder. Today ultrasound shows a DVT in the left lower leg. It also showed a chronic DVT in the left popliteal vein and left T/P. Patient will be given a dose of Eliquis here and a starter pack to go. He has been told to follow-up with PCP as he may need to be on chronic blood thinner. He will be discharged home in stable condition. Patient is comfortable with plan. Lab Data Attestation: I reviewed the patient's lab results. Lab results narrative: CBC unremarkable, anion gap 4, BUN 25, glucose 130 Labs: Laboratory Results - last 24 hr 12/03/22 12/03/22 13:53 13:53 WBC 7.6 RBC 4.53 L Hgb 14.4 Hct 42.2 MCV 93.2 MCH 31.8 MCHC 34.1 RDW Std Deviation 40.7 RDW Coeff of Ayaz 11.8 Plt Count 174 MPV 9.8 Immature Gran % (Auto) 0.500 Neut % (Auto) 56.5 Lymph % (Auto) 31.4 [place] % (Auto) 8.3 Eos % (Auto) 2.4 Baso % (Auto) 0.9 Absolute Neuts (auto) 4.3 Absolute Lymphs (auto) 2.38 Nucleated RBC % 0 Sodium 138 Potassium 4.0 Chloride 107 Carbon Dioxide 27.0 Anion Gap 4 L BUN 25 H Creatinine 1.09 Estim Creat Clear Calc 93.10 Est GFR (MDRD) Af Amer 89 Est GFR (MDRD) Non-Af 74 BUN/Creatinine Ratio 22.9 H Glucose 130 H Calcium 9.3 <Dr. Huseyin Lund MD - Last Filed: 12/03/22 15:38> [facility] MDM Narrative Medical decision making narrative: Patient will be given a dose of Eliquis here and a starter pack to go. Lab Data Labs: Laboratory Results - last 24 hr 12/03/22 12/03/22 13:53 13:53 WBC 7.6 RBC 4.53 L Hgb 14.4 Hct 42.2 MCV 93.2 MCH 31.8 MCHC 34.1 RDW Std Deviation 40.7 RDW Coeff of Ayaz 11.8 Plt Count 174 MPV 9.8 Immature Gran % (Auto) 0.500 Neut % (Auto) 56.5 Lymph % (Auto) 31.4 [place] % (Auto) 8.3 Eos % (Auto) 2.4 Baso % (Auto) 0.9 Absolute Neuts (auto) 4.3 Absolute Lymphs (auto) 2.38 Nucleated RBC % 0 Sodium 138 Potassium 4.0 Chloride 107 Carbon Dioxide 27.0 Anion Gap 4 L BUN 25 H Creatinine 1.09 Estim Creat Clear Calc 93.10 Est GFR (MDRD) Af Amer 89 Est GFR (MDRD) Non-Af 74 BUN/Creatinine Ratio 22.9 H Glucose 130 H Calcium 9.3 Treatment and Re-Evaluation Narrative: I have personally performed a face to face assessment of the patient and have reviewed the ODETTE Note. I performed a substantive portion of the visit including all aspects of the following. My sterling findings include: History: Patient presents with left calf discomfort. He describes it as sharp. He is not having chest pain or shortness of breath. No coughing. He does have a history of DVT and had a prior PE. He has had work-up for hypercoagulability. He states all the studies were normal except one was borderline. It was felt that it was not enough to justify long-term therapy. He is not on anticoagulation now. Patient did just have a trip but it was only about 2 hours to [facility]. His other clots occurred after flights from [place] and after surgery. No acute trauma to the area. No fevers chills sweats nausea or vomiting. Exam: Patient awake alert no acute distress. Lungs are clear. Heart regular. Respiratory rate and pulse rate are normal. Oxygen saturations are 98 to 100% on room air showing no hypoxia. Abdomen is benign. He does have a little bit of redness to the posterior aspect of the left calf. However, he states he has been rubbing it quite a bit. It is consistent with this. It is not warm. There is some mild tenderness. However, I do not feel a cord. He has some varicosities but they look similar on both legs. There is no notable swelling compared to the left when measured. Medical Decison Making patient will have ultrasound of this area. We will do blood work initially as we have a higher suspicion that this could be a blood clot. Ultrasound does come back with a DVT in the lower leg. There is also a chronic older DVT in addition to the acute. Although this is below the knee, he is having pain and he has history of prior DVT and pulmonary embolus. I think it is appropriate to treat him for this. I do not think this is a DVT that should just be followed up with ultrasound to look for change. Discharge Plan Triage Chief Complaint: Lower Extremity Injury ED Midlevel Provider: Michelle Atkinson ED Provider: Huseyin Lund Dx/Rx/DC Orders Clinical Impression: DVT (deep venous thrombosis) Instructions: DVT Dc Prescriptions: New Eliquis 5 mg tablet 5 mg PO BID Qty: 74 0RF Rx Instructions: 10 mg twice a day for the first week. Then 5 mg twice a day. No Action amoxicillin-pot clavulanate 875-125 mg tablet 1 tab PO Q12H Qty: 20 0RF Primary Care Provider: Nathan Cortes Referrals: Nathan Cortes MD [Primary Care Provider] - 3-5 Days Activity Restrictions/Additional Instructions: Please follow-up with PCP and take Eliquis as prescribed. Return if you develop any shortness of breath, chest pain, or new or worsening symptoms. Disposition Disposition: Home, Self Care Discharge Date/Time: 12/03/22 15:32
[2022-12-03 13:57] LABS: Absolute Lymphocyte Count 2.38 X10^3/uL (0.83-4.51); Absolute Neutrophil Count 4.3 X10^3/uL (2.0-7.7); Basophil# 0.07 X10^3/uL; Basophil% 0.9 % (0-1); Eosinophil# 0.18 X10^3/uL; Eosinophils% 2.4 % (0-5); Hematocrit 42.2 % (40-54); Hemoglobin 14.4 g/dL (13.0-16.5); Lymphocyte # 2.38 X10^3/ul (0.83-4.51); Lymphocyte % 31.4 % (19-41); Mean Corp Hgb Conc 34.1 g/dL (32-36); Mean Corpuscular Hgb 31.8 pg (27.0-32.0); Mean Corpuscular Volume 93.2 fL (80-94); Mean Platelet Vol. 9.8 fl (6.2-12.0); Monocyte# 0.63 X10^3/uL; Monocyte% 8.3 % (0-10); NRBC Flagged by Analyzer 0 % (0-5); Neutrophil # 4.28 X10^3/uL (2.7-7.7); Neutrophil % 56.5 % (47-70); Platelet Count 174 K/mm3 (150-450); RBC Distribution Width CV 11.8 % (11.6-14.6); RBC Distribution Width SD 40.7 fl (35.1-43.9); Red Blood Count 4.53 M/mm3 (4.6-6.2); White Blood Count 7.6 K/mm3 (4.4-11.0)
[2022-12-03 14:11] LABS: Anion Gap 4 (5-15); BUN 25 mg/dL (7-18); BUN/Creat Ratio 22.9 RATIO (10-20); Calcium,Total 9.3 mg/dL (8.5-10.1); Chloride 107 mmol/L (98-107); Creatinine, Serum 1.09 mg/dL (0.70-1.30); EST Glomerular Filtration Rate 74 mL/min (>60); Est Glom Filt Rate - Afr Amer 89 mL/min (>60); Glucose 130 mg/dL (74-106); Sodium Level 138 mmol/L (136-145)
[2022-12-03] MEDS: APIXABAN 5 MG TABLET 10 MG PO (15:30)
== END 2022-12-03 15:32 | disposition home or self-care (01) ==
PROVIDERS: Physician Assistant; Emergency Provider Emergency Medicine; PCP Family Medicine; Visit Provider Emergency Medicine
DX: I82.402 Acute embolism and thrombosis of unspecified deep veins of left lower extremity (principal); F17.200 Nicotine dependence, unspecified, uncomplicated; Z86.718 Personal history of other venous thrombosis and embolism; Z86.711 Personal history of pulmonary embolism
CPT/HCPCS: 99281; 80048; 85025; 93971; 99283; A4216